=== PATIENT | female | born 1975 | race Caucasian/White ===

== ENCOUNTER 2016-08-25 01:53 | Emergency (ER) | payer SELFPAY ==
[~2016-08-25] VITALS: Ht 162.6 cm; Wt 72.6 kg
[~2016-08-25 01:53] MED LIST: ACET-704 PO; TOBR5DRO3 AS; TRAM1TAB4 PO
[2016-08-25 02:08] VITALS: BP 122/70
[2016-08-25] MEDS ORDERED: NEOM10DR32 EACH EAR (02:35)
--- NOTE | 2016-08-25 02:36 | PHYS DOC ---
Past Medical History Past Medical History: No Pertinent History Past Surgical History: Appendectomy, Tubal ligation, Other Additional Past Surgical Histo: D&C Alcohol Use: Occasionally Drug Use: None Adult General Chief Complaint Chief Complaint: EARACHE/EAR PAIN HPI HPI Patient is a 40 year old female who presents with right ear pain. The patient reports 2 day history of symptoms, clear/yellow drainage from the affected ear. Reports nasal congestion, rhinorrhea, sore throat, dry cough, intermittent vomiting, all over the past week. She is previously healthy. Review of Systems Review of Systems Constitutional: Denies fever or chills Eyes: Denies drainage HENT: Reports nasal congestion, ear pain, sore throat Respiratory: Reports cough, denies shortness of breath Cardiovascular: Denies chest pain GI: Reports nausea and vomiting. Denies abdominal pain Musculoskeletal: Denies back pain or joint pain Integument: Denies rash or skin lesions Neurologic: Denies headache Current Medications Current Medications Current Medications Medications (Trade) Dose Ordered Sig/Shon Start Time Stop Time Status Last Admin Dose Admin Ibuprofen (Motrin) 600 mg 1X ONCE 08/25/16 03:00 08/25/16 03:00 DC 08/25/16 02:41 600 MG Allergies Allergies Allergies Coded Allergies Type Severity Reaction Last Updated Verified Penicillins Allergy Severe hives 08/13/13 Yes Physical Exam Physical Exam Constitutional: Well developed, well nourished, no acute distress, non-toxic appearance. HENT: Normocephalic, atraumatic, bilateral external ears normal, right TM normal in appearance, EAC edematous, erythematous, friable tissue, yellow drainage, left TM & EAC are normal, oropharynx moist, no tonsillar enlargement or exudate, nose normal. Eyes: conjunctiva normal, no discharge. Cardiovascular: no edema. Lungs & Thorax: no respiratory distress. Abdomen: nondistended. Skin: Warm, dry, no erythema, no rash. Extremities: No deformity Neurologic: Alert and oriented X 3 Current Patient Data Vital Signs Vital Signs Date Time Temp Pulse Resp B/P Pulse Ox O2 Delivery O2 Flow Rate FiO2 08/25/16 02:08 97.8 111 20 96 Room Air 97.8 EKG EKG [] Radiology/Procedures Radiology/Procedures [] Course & Med Decision Making Course & Med Decision Making Pertinent Labs and Imaging studies reviewed. (See chart for details) The patient presents with ear pain, otitis externa on exam. Gave ibuprofen for pain. Prescription for neomycin/polymixin/hydrocortisone otic drops. Follow up as needed with Dr. Kiser in primary care clinic if not improving in 2-3 days. Come back for worsening condition. Discharged home in stable condition. [] Dragon Disclaimer Dragon Disclaimer This electronic medical record was generated, in whole or in part, using a voice recognition dictation system. Departure Departure Impression: Primary Impression: Otitis externa Disposition: HOME, SELF-CARE Condition: STABLE Referrals: NO PCP (PCP) CELIA KISER MD Patient Instructions: Otitis Externa, [id number] Additional Instructions: You were seen in the emergency department today for ear pain. You have outer ear infection. Use the prescribed drops. Take tylenol or ibuprofen for pain. Follow up wtih Dr. Kiser in primary care clinic for additional concerns. Scripts Neomycin/Polymyxin B Sulf/Hc (Kpgvbkct-Uneffjpgt-Fl Ear Susp)10 Ml Drops.susp4 Drop EACH EAR QID 7 Days Prov:CRISSY WALLACE MD 08/25/16 CRISSY WALLACE MD August 25, 2016 02:35
[2016-08-25] MEDS ORDERED: IBUPROFEN 600 MG TABLET. PO ONE (03:00)
== END 2016-08-25 02:42 | disposition home or self-care (01) ==
LOC: ER 01:53
DX: H60.91 Unspecified otitis externa, right ear (principal); J02.9 Acute pharyngitis, unspecified; Z90.49 Acquired absence of other specified parts of digestive tract; Z98.51 Tubal ligation status; Z88.0 Allergy status to penicillin
CPT/HCPCS: 99283

== ENCOUNTER 2017-04-22 03:32 | Emergency (ER) | payer SELFPAY ==
[2017-04-22] MEDS: KETOROLAC 30 MG/ML INJ. IM (04:15)
== END 2017-04-22 05:43 | disposition home or self-care (01) ==
LOC: ER 03:32
DX: S22.000A Wedge compression fracture of unspecified thoracic vertebra, initial encounter for closed fracture (principal); S06.0X0A Concussion without loss of consciousness, initial encounter; S16.1XXA Strain of muscle, fascia and tendon at neck level, initial encounter; S20.211A Contusion of right front wall of thorax, initial encounter; Z90.49 Acquired absence of other specified parts of digestive tract; Z98.51 Tubal ligation status; Z88.0 Allergy status to penicillin; W00.0XXA Fall on same level due to ice and snow, initial encounter; Y93.89 Activity, other specified; Y92.89 Other specified places as the place of occurrence of the external cause; Y99.8 Other external cause status
CPT/HCPCS: 70450; 72072; 96372; 99284-25; J1885

== ENCOUNTER 2017-06-27 05:46 | Emergency (ER) | payer SELFPAY ==
[2017-06-27] MEDS ORDERED: LIDOCAINE 1% PF 2 ML VIAL. ×2 (06:16→06:19)
[2017-06-27] MEDS: LIDOCAINE 1% PF 2 ML VIAL. ID (06:30)
[2017-06-27] MEDS: DIPHTH,PERTUSS(ACELL),TET TOX 0.5 ML DISP.SYRIN. VAX IM (06:44)
== END 2017-06-27 07:09 | disposition home or self-care (01) ==
LOC: ER 05:46
DX: L02.412 Cutaneous abscess of left axilla (principal); Z88.0 Allergy status to penicillin; Z98.51 Tubal ligation status
CPT/HCPCS: 10060; 90471; 90715; 99283-25

== ENCOUNTER 2018-07-30 00:30 | Emergency (ER) | payer SELFPAY ==
[~2018-07-30] VITALS: Ht 162.6 cm; Wt 72.1 kg
[~2018-07-30 00:30] MED LIST changes: +NEOM10DR32 EACH EAR; +SULF1TAB24 PO
--- NOTE | 2018-07-30 01:11 | PHYS DOC ---
Past Medical History Past Medical History: No Pertinent History Past Surgical History: Appendectomy, Tubal ligation Additional Past Surgical Histo: D&C Alcohol Use: Occasionally Drug Use: None Adult General Chief Complaint Chief Complaint: ABDOMINAL PAIN HPI HPI Patient is a 42 year old female who presents with abdominal pain for 2 days. Patient states the pain has been progressively getting worse over the past 2 days until the last 2 hours and become sharp in nature. It is located in her right lower quadrant with radiation into her groin. She attempted take Tylenol ibuprofen at home with no relief. Nothing seems to make her pain worse. She does report blood in her urine for the past couple days. Additionally the patient has not been able to have bowel movement for 2-3 days. She denies any nausea or vomiting. Denies . Hx of tubal ligation. Review of Systems Review of Systems Constitutional: Denies fever or chills [] Eyes: Denies redness, or eye pain [] HENT: Denies nasal congestion or sore throat [] Respiratory: Denies cough or shortness of breath [] Cardiovascular: Denies chest pain or patient's[] GI: Reports abdominal pain radiating to groin, denies nausea or vomiting[] : Reports hematuria, denies dysuria [] Musculoskeletal: Denies back pain or joint pain [] Integument: Denies rash or skin lesions [] Neurologic: Denies headache, focal weakness [] Complete systems were reviewed and found to be within normal limits, except as documented in this note. Current Medications Current Medications Current Medications Medications (Trade) Dose Ordered Sig/Shon Start Time Stop Time Status Last Admin Dose Admin Fentanyl Citrate (Fentanyl 2ml Vial) 50 mcg 1X ONCE 07/30/18 01:15 07/30/18 01:16 DC 07/30/18 01:23 50 MCG Ketorolac Tromethamine (Toradol 15mg Vial) 15 mg 1X ONCE 07/30/18 01:15 07/30/18 01:16 DC 07/30/18 01:22 15 MG Metoclopramide HCl (Reglan Vial) 10 mg 1X ONCE 07/30/18 01:15 07/30/18 01:16 DC 07/30/18 01:18 10 MG Sodium Chloride 500 ml @ 500 mls/hr 1X ONCE 07/30/18 02:45 07/30/18 02:45 DC Tamsulosin HCl (Flomax) 0.4 mg 1X ONCE 07/30/18 02:30 07/30/18 02:32 DC 07/30/18 02:30 0.4 MG Allergies Allergies Allergies Coded Allergies Type Severity Reaction Last Updated Verified Penicillins Allergy Severe hives 08/13/13 Yes Physical Exam Physical Exam Constitutional: Moderate distress, non-toxic appearance. [] HENT: Normocephalic, atraumatic, poor dentition. [] Eyes: EOMI, conjunctiva normal. [] Neck: Normal range of motion, supple. [] Cardiovascular: Heart rate regular rhythm, no murmur [] Lungs & Thorax: Bilateral breath sounds clear to auscultation, no rhonchi rales or wheezes. [] Abdomen: Soft, tenderness in right lower quadrant, no rebound rigidity or guarding. [] Skin: Warm, dry, no lacerations. [] Back: No tenderness, right CVA tenderness. [] Extremities: No tenderness, no cyanosis, no edema. [] Neurologic: Alert and oriented X 3, normal motor function, no focal deficits noted. [] Psychologic: Affect normal, mood normal. [] Current Patient Data Vital Signs Vital Signs Date Time Temp Pulse Resp B/P (MAP) Pulse Ox O2 Delivery O2 Flow Rate FiO2 07/30/18 03:41 96 110/64 (79) 97 Room Air 07/30/18 01:23 18 07/30/18 00:35 97.4 97.4 Lab Values Laboratory Tests Test 07/30/18 00:42 07/30/18 01:10 07/30/18 02:43 POC Urine HCG, Qualitative Hcg negative (Negative) White Blood Count 13.4 x10^3/uL (4.0-11.0) H Red Blood Count 4.93 x10^6/uL (3.50-5.40) Hemoglobin 14.2 g/dL (12.0-15.5) Hematocrit 42.6 % (36.0-47.0) Mean Corpuscular Volume 87 fL (79-100) Mean Corpuscular Hemoglobin 29 pg (25-35) Mean Corpuscular Hemoglobin Concent 33 g/dL (31-37) Red Cell Distribution Width 13.5 % (11.5-14.5) Platelet Count 255 x10^3/uL (140-400) Neutrophils (%) (Auto) 88 % (31-73) H Lymphocytes (%) (Auto) 8 % (24-48) L Monocytes (%) (Auto) 3 % (0-9) Eosinophils (%) (Auto) 0 % (0-3) Basophils (%) (Auto) 0 % (0-3) Neutrophils # (Auto) 11.7 x10^3uL (1.8-7.7) H Lymphocytes # (Auto) 1.1 x10^3/uL (1.0-4.8) Monocytes # (Auto) 0.5 x10^3/uL (0.0-1.1) Eosinophils # (Auto) 0.0 x10^3/uL (0.0-0.7) Basophils # (Auto) 0.0 x10^3/uL (0.0-0.2) Segmented Neutrophils % 88 % (35-66) H Lymphocytes % 9 % (24-48) L Monocytes % 3 % (0-10) Platelet Estimate Adequate (ADEQUATE) Sodium Level 140 mmol/L (136-145) Potassium Level 4.1 mmol/L (3.5-5.1) Chloride Level 103 mmol/L (98-107) Carbon Dioxide Level 25 mmol/L (21-32) Anion Gap 12 (6-14) Blood Urea Nitrogen 11 mg/dL (7-20) Creatinine 1.0 mg/dL (0.6-1.0) Estimated GFR (Cockcroft-Gault) 61.1 BUN/Creatinine Ratio 11 (6-20) Glucose Level 138 mg/dL (70-99) H Calcium Level 8.9 mg/dL (8.5-10.1) Total Bilirubin 0.3 mg/dL (0.2-1.0) Aspartate Amino Transferase (AST) 17 U/L (15-37) Alanine Aminotransferase (ALT) 17 U/L (14-59) Alkaline Phosphatase 110 U/L (46-116) Total Protein 7.5 g/dL (6.4-8.2) Albumin 3.8 g/dL (3.4-5.0) Albumin/Globulin Ratio 1.0 (1.0-1.7) Lipase 59 U/L (73-393) L Urine Collection Type U cath Urine Color Red Urine Clarity Cloudy Urine pH 7.5 Urine Specific [place] >=1.030 Urine Protein 100 mg/dL (NEG-TRACE) Urine Glucose (UA) Negative mg/dL (NEG) Urine Ketones (Stick) 15 mg/dL (NEG) Urine Blood Large (NEG) Urine Nitrite Negative (NEG) Urine Bilirubin Small (NEG) Urine Urobilinogen Dipstick 1.0 mg/dL (0.2 mg/dL) Urine Leukocyte Esterase Small (NEG) Urine RBC Tntc /HPF (0-2) Urine WBC Occ /HPF (0-4) Urine Squamous Epithelial Cells Few /LPF Urine Bacteria 0 /HPF (0-FEW) Urine Mucus Marked /LPF Laboratory Tests 07/30/18 01:10 Laboratory Tests 07/30/18 01:10 Microbiology 07/30/18 Urine Culture - Final, Complete 07/30/18 Urine Culture Result 1 (MINE) - Final, Complete EKG EKG [] Radiology/Procedures Radiology/Procedures PROCEDURE: CT ABDOMEN PELVIS WO CONTRAST Abdominal and Pelvis CT, Without Contrast: History: Right flank pain. Comparison: None. Procedure: Axial images are obtained of the abdomen and pelvis, without IV or oral contrast. CT Abdomen without Contrast: Findings: Evaluation of solid organs is limited without contrast. Evaluation of stomach and bowel is limited without oral contrast. Liver: Normal. Spleen: Normal. Pancreas: Normal. Adrenal Glands: Normal. Kidneys: There is moderate right hydronephrosis and hydroureter.. There is no free air or free fluid. There is no lymphadenopathy. Impression: Please see CT Pelvis without Contrast. End Impression. CT Pelvis without Contrast: Findings: The urinary bladder is collapsed. There is no free fluid. There is no lymphadenopathy. There is no pericolonic inflammation identified. There is a 6 mm stone in the distal right ureter just above the UVJ. Impression: 6 mm stone distal right ureter with moderate hydronephrosis and hydroureter. End impression PQRS Compliance Statement: One or more of the following individualized dose reduction techniques were utilized for this examination: 1. Automated exposure control 2. Adjustment of the mA and/or kV according to patient size 3. Use of iterative reconstruction technique Electronically signed by: Jeovanny Castro III, MD (07/30/2018 2:03 AM) [facility] DICTATED and SIGNED BY: JEOVANNY CASTRO III, MD[] Course & Med Decision Making Course & Med Decision Making 42-year-old female with previous appendectomy presented to emergency department for RLQ abdominal pain and right flank pain. Patient reported hematuria. She is unable to rest comfortably in the room. Pertinent Labs and Imaging studies reviewed. CT demonstrated 6 mm stone in the right UVJ. Urine was negative for infection. Symptomatic treatment provided with interval improvement. Flomax initiated. Patient stable for discharge with outpatient follow-up with PCP/ urologist. Urology referral provided. Discussed findings and plan with patient and family, who acknowledge understanding and agreement. [] Dragon Disclaimer Dragon Disclaimer This electronic medical record was generated, in whole or in part, using a voice recognition dictation system. Departure Departure Impression: Primary Impression: Hydronephrosis with urinary obstruction due to ureteral calculus Disposition: HOME, SELF-CARE Condition: STABLE Referrals: NO PCP (PCP) SALENA MALONE MD Patient Instructions: Diet for Kidney Stones, Kidney Stones, [id number] Scripts Ondansetron (ONDANSETRON ODT) 4 Mg Tab.rapdis 1 TAB PO PRN Q6-8HRS PRN for NAUSEA, #16 TAB Prov: AMANDA CALLAHAN DO 07/30/18 Hydrocodone/Apap 5-325 (NORCO 5-325 TABLET) 1 Each Tablet 1 TAB PO PRN Q6HRS PRN for PAIN, #14 TAB 0 Refills Prov: AMANDA CALLAHAN DO 07/30/18 Tamsulosin Hcl (FLOMAX) 0.4 Mg Cap.er.24h 1 CAP PO DAILY for 7 Days, #7 CAP Prov: AMANDA CALLAHAN DO 07/30/18 AMANDA CALLAHAN DO Jul 30, 2018 01:11
[2018-07-30] MEDS ORDERED: KETOROLAC 15 MG/ML VIAL. IV ONE (01:15)
[2018-07-30] MEDS ORDERED: METOCLOPRAMIDE HCL 10 MG/2 ML VIAL. IV ONE (01:15)
[2018-07-30] MEDS ORDERED: IV NORMAL SALINE 1000ML BAG 1,000 ML IV ONE (01:15)
[2018-07-30] MEDS ORDERED: fentaNYL PF VIAL 100 MCG/2 ML VIAL IV ONE (01:15)
[2018-07-30 01:21] LABS: BASO % 0 % (0-3); EOS % 0 % (0-3); HEMATOCRIT 42.6 % (36.0-47.0); HEMOGLOBIN 14.2 g/dL (12.0-15.5); LYMPH # 1.1 x10^3/uL (1.0-4.8); LYMPH % 8 % (24-48); MEAN CORPUSCULAR HEMOGLOBIN 29 pg (25-35); MEAN CORPUSCULAR HGB CONC 33 g/dL (31-37); MEAN CORPUSCULAR VOLUME 87 fL (79-100); MONO # 0.5 x10^3/uL (0.0-1.1); MONO % 3 % (0-9); NEUT # 11.7 x10^3uL (1.8-7.7); NEUT % 88 % (31-73); PLATELET COUNT 255 x10^3/uL (140-400); RED BLOOD COUNT 4.93 x10^6/uL (3.50-5.40); RED CELL DISTRIBUTION WIDTH 13.5 % (11.5-14.5); WHITE BLOOD COUNT 13.4 x10^3/uL (4.0-11.0)
[2018-07-30 01:36] LABS: ALBUMIN 3.8 g/dL (3.4-5.0); CALCIUM 8.9 mg/dL (8.5-10.1); GFR 61.1; POTASSIUM 4.1 mmol/L (3.5-5.1); TOTAL BILIRUBIN 0.3 mg/dL (0.2-1.0); TOTAL PROTEIN 7.5 g/dL (6.4-8.2)
--- NOTE | 2018-07-30 02:06 | RAD ---
Abdominal and Pelvis CT, Without Contrast: History: Right flank pain. Comparison: None. Procedure: Axial images are obtained of the abdomen and pelvis, without IV or oral contrast. CT Abdomen without Contrast: Findings: Evaluation of solid organs is limited without contrast. Evaluation of stomach and bowel is limited without oral contrast. Liver: Normal. Spleen: Normal. Pancreas: Normal. Adrenal Glands: Normal. Kidneys: There is moderate right hydronephrosis and hydroureter.. There is no free air or free fluid. There is no lymphadenopathy. Impression: Please see CT Pelvis without Contrast. End Impression. CT Pelvis without Contrast: Findings: The urinary bladder is collapsed. There is no free fluid. There is no lymphadenopathy. There is no pericolonic inflammation identified. There is a 6 mm stone in the distal right ureter just above the UVJ. Impression: 6 mm stone distal right ureter with moderate hydronephrosis and hydroureter. End impression PQRS Compliance Statement: One or more of the following individualized dose reduction techniques were utilized for this examination: 1. Automated exposure control 2. Adjustment of the mA and/or kV according to patient size 3. Use of iterative reconstruction technique Electronically signed by: Compa Castro III, MD (07/30/2018 2:03 AM) [facility]
[2018-07-30] MEDS ORDERED: ONDA4TAB12 PO (02:27)
[2018-07-30] MEDS ORDERED: HYDR-3164 PO (02:27)
[2018-07-30] MEDS ORDERED: TAMS0.4C97 PO (02:27)
[2018-07-30] MEDS ORDERED: TAMSULOSIN 0.4 MG CAP.ER.24H. PO ONE (02:30)
[2018-07-30] MEDS ORDERED: IV NORMAL SALINE 500ML BAG 500 ML IV ONE (02:45)
[2018-07-30 02:56] LABS: BILIRUBIN,URINE SMALL (NEG); CLARITY,URINE CLOUDY; COLOR,URINE RED; NITRITE,URINE NEGATIVE (NEG); PH,URINE 7.5; PROTEIN,URINE 100 mg/dL (NEG-TRACE)
[2018-07-30 03:08] LABS: BACTERIA,URINE 0 /HPF (0-FEW); RBC,URINE TNTC /HPF (0-2); SQUAMOUS EPITHELIAL CELL,UR FEW /LPF; WBC,URINE OCC /HPF (0-4)
[2018-07-30 03:41] VITALS: BP 110/64
[2018-07-30 05:35] LABS: % LYMPHS 9 % (24-48); % MONOS 3 % (0-10); % SEGS 88 % (35-66); PLT ESTIMATE ADEQUATE (ADEQUATE)
== END 2018-07-30 03:40 | disposition home or self-care (01) ==
LOC: ER 00:30
DX: N13.2 Hydronephrosis with renal and ureteral calculous obstruction (principal); Z90.89 Acquired absence of other organs; Z98.51 Tubal ligation status; Z88.0 Allergy status to penicillin
CPT/HCPCS: 36415; 74176; 80053; 81001; 81025; 83690; 85007; 85025; 87086; 96374; 96375; 99284; J1885; J2765; J3010; J7030

== ENCOUNTER 2018-08-03 10:49 | Emergency (ER) | payer SELFPAY ==
[~2018-08-03] VITALS: Ht 162.6 cm; Wt 68.0 kg
[~2018-08-03 10:49] MED LIST changes: +HYDR-3164 PO; +ONDA4TAB12 PO; +TAMS0.4C97 PO
[2018-08-03 11:03] VITALS: BP 141/78
[2018-08-03] MEDS ORDERED: IV NORMAL SALINE 1000ML BAG 1,000 ML IV SCH ×2 (11:04→11:35)
[2018-08-03] MEDS ORDERED: ONDANSETRON PF 4 MG/2 ML VIAL. IV ONE (11:15)
[2018-08-03 11:18] LABS: BASO # 0.1 x10^3/uL (0.0-0.2); BASO % 1 % (0-3); EOS # 0.2 x10^3/uL (0.0-0.7); EOS % 1 % (0-3); HEMATOCRIT 40.4 % (36.0-47.0); HEMOGLOBIN 13.5 g/dL (12.0-15.5); LYMPH # 1.2 x10^3/uL (1.0-4.8); LYMPH % 8 % (24-48); MEAN CORPUSCULAR HEMOGLOBIN 29 pg (25-35); MEAN CORPUSCULAR HGB CONC 34 g/dL (31-37); MEAN CORPUSCULAR VOLUME 87 fL (79-100); MONO # 0.8 x10^3/uL (0.0-1.1); MONO % 6 % (0-9); NEUT # 11.9 x10^3uL (1.8-7.7); NEUT % 85 % (31-73); PLATELET COUNT 262 x10^3/uL (140-400); RED BLOOD COUNT 4.66 x10^6/uL (3.50-5.40); RED CELL DISTRIBUTION WIDTH 13.6 % (11.5-14.5); WHITE BLOOD COUNT 14.1 x10^3/uL (4.0-11.0)
[2018-08-03] MEDS ORDERED: fentaNYL PF VIAL 100 MCG/2 ML VIAL ONE (11:21)
[2018-08-03 11:30] LABS: CALCIUM 9.1 mg/dL (8.5-10.1); GFR 61.1
[2018-08-03] MEDS ORDERED: fentaNYL PF VIAL 100 MCG/2 ML VIAL IV ONE (11:30)
--- NOTE | 2018-08-03 11:35 | PHYS DOC ---
Past Medical History Past Medical History: No Pertinent History Past Surgical History: Appendectomy, Tubal ligation Additional Past Surgical Histo: D&C Alcohol Use: Occasionally Drug Use: None Adult General Chief Complaint Chief Complaint: FLANK PAIN HPI HPI Patient is a 42 year old female who presents in by EMS because of right flank pain. Patient states she was seen on July 30 in this emergency room because of right flank pain and diagnosed with kidney stone and discharged home with hydrocodone improvement of her pain. Is complaining of severe right flank pain since this morning with radiation to right lower quadrant and associated with 2 episodes of vomiting and hematuria. Patient rated her pain 10 over 10 and looks very uncomfortable. Review of Systems Review of Systems Constitutional: Denies fever or chills [] Eyes: Denies change in visual acuity, redness, or eye pain [] HENT: Denies nasal congestion or sore throat [] Respiratory: Denies cough or shortness of breath [] Cardiovascular: No additional information not addressed in HPI [] GI: Denies abdominal pain, nausea, vomiting, bloody stools or diarrhea [] : Denies dysuria or hematuria [] Musculoskeletal: Denies back pain or joint pain [] Integument: Denies rash or skin lesions [] Neurologic: Denies headache, focal weakness or sensory changes [] Endocrine: Denies polyuria or polydipsia [] All other systems were reviewed and found to be within normal limits, except as documented in this note. Current Medications Current Medications Current Medications Medications (Trade) Dose Ordered Sig/Shon Start Time Stop Time Status Last Admin Dose Admin Sodium Chloride 1,000 ml @ 1,000 mls/hr Q1H 08/03/18 11:04 08/03/18 12:03 DC 08/03/18 11:25 1,000 MLS/HR Allergies Allergies Allergies Coded Allergies Type Severity Reaction Last Updated Verified Penicillins Allergy Severe hives 08/13/13 Yes Physical Exam Physical Exam Constitutional: Well developed, well nourished, no acute distress, non-toxic appearance. [] HENT: Normocephalic, atraumatic, bilateral external ears normal, oropharynx moist, no oral exudates, nose normal. [] Eyes: PERRLA, EOMI, conjunctiva normal, no discharge. [] Neck: Normal range of motion, no tenderness, supple, no stridor. [] Cardiovascular:Heart rate regular rhythm, no murmur [] Lungs & Thorax: Bilateral breath sounds clear to auscultation [] Abdomen: Bowel sounds normal, soft, no tenderness, no masses, no pulsatile masses. [] Skin: Warm, dry, no erythema, no rash. [] Back: No tenderness, no CVA tenderness. [] Extremities: No tenderness, no cyanosis, no clubbing, ROM intact, no edema. [] Neurologic: Alert and oriented X 3, normal motor function, normal sensory function, no focal deficits noted. [] Psychologic: Affect normal, judgement normal, mood normal. [] Current Patient Data Vital Signs Vital Signs Date Time Temp Pulse Resp B/P (MAP) Pulse Ox O2 Delivery O2 Flow Rate FiO2 08/03/18 11:03 97.6 95 26 141/78 (99) 99 Room Air 97.6 Lab Values Laboratory Tests Test 08/03/18 11:00 White Blood Count 14.1 x10^3/uL (4.0-11.0) H Red Blood Count 4.66 x10^6/uL (3.50-5.40) Hemoglobin 13.5 g/dL (12.0-15.5) Hematocrit 40.4 % (36.0-47.0) Mean Corpuscular Volume 87 fL (79-100) Mean Corpuscular Hemoglobin 29 pg (25-35) Mean Corpuscular Hemoglobin Concent 34 g/dL (31-37) Red Cell Distribution Width 13.6 % (11.5-14.5) Platelet Count 262 x10^3/uL (140-400) Neutrophils (%) (Auto) 85 % (31-73) H Lymphocytes (%) (Auto) 8 % (24-48) L Monocytes (%) (Auto) 6 % (0-9) Eosinophils (%) (Auto) 1 % (0-3) Basophils (%) (Auto) 1 % (0-3) Neutrophils # (Auto) 11.9 x10^3uL (1.8-7.7) H Lymphocytes # (Auto) 1.2 x10^3/uL (1.0-4.8) Monocytes # (Auto) 0.8 x10^3/uL (0.0-1.1) Eosinophils # (Auto) 0.2 x10^3/uL (0.0-0.7) Basophils # (Auto) 0.1 x10^3/uL (0.0-0.2) Sodium Level 139 mmol/L (136-145) Potassium Level 4.0 mmol/L (3.5-5.1) Chloride Level 102 mmol/L (98-107) Carbon Dioxide Level 25 mmol/L (21-32) Anion Gap 12 (6-14) Blood Urea Nitrogen 9 mg/dL (7-20) Creatinine 1.0 mg/dL (0.6-1.0) Estimated GFR (Cockcroft-Gault) 61.1 BUN/Creatinine Ratio 9 (6-20) Glucose Level 110 mg/dL (70-99) H Lactic Acid Level 0.6 mmol/L (0.4-2.0) Calcium Level 9.1 mg/dL (8.5-10.1) Total Bilirubin 0.4 mg/dL (0.2-1.0) Aspartate Amino Transferase (AST) 20 U/L (15-37) Alanine Aminotransferase (ALT) 35 U/L (14-59) Alkaline Phosphatase 129 U/L (46-116) H Total Protein 7.5 g/dL (6.4-8.2) Albumin 3.5 g/dL (3.4-5.0) Albumin/Globulin Ratio 0.9 (1.0-1.7) L Laboratory Tests 08/03/18 11:00 Laboratory Tests 08/03/18 11:00 EKG EKG [] Radiology/Procedures Radiology/Procedures [] Course & Med Decision Making Course & Med Decision Making Pertinent Labs and Imaging studies reviewed. (See chart for details) Evaluation of patient in ER showed 42-year-old female patient with history of the distal right ureter seen in CT 5 days ago and was in by EMS because of severe flank pain. Patient treated with IV fluid and Zofran and fentanyl. Dr. Alicea see list. Patient was consulted at 111,[facility] nurse practitioner was informed at 1111 and evaluated the patient in ER. Patient requiring admission for further evaluation and treatment. Discussed with Dr. Pereira who is in agreement with admission. Discussed findings and plan with patient and family, who acknowledge understanding and agreement. Dragon Disclaimer Dragon Disclaimer This electronic medical record was generated, in whole or in part, using a voice recognition dictation system. Departure Departure Impression: Primary Impression: Renal colic on right side Additional Impressions: Ureterolithiasis Nausea and vomiting Hematuria Disposition: 09 ADMITTED INPATIENT (@1116) Admitting Physician: Josiah Pereira (accepted admission at 1116) Condition: IMPROVED Referrals: NO PCP (PCP) Problem Qualifiers Additional Impressions: Nausea and vomiting Vomiting type: unspecified Vomiting Intractability: unspecified Qualified Codes: R11.2 - Nausea with vomiting, unspecified Hematuria Hematuria type: unspecified type Qualified Codes: R31.9 - Hematuria, unspecified FARHEEN UMAÑA MD Aug 03, 2018 11:35
[2018-08-03 11:36] LABS: ALBUMIN 3.5 g/dL (3.4-5.0); ALBUMIN/GLOBULIN RATIO 0.9 (1.0-1.7); TOTAL BILIRUBIN 0.4 mg/dL (0.2-1.0); TOTAL PROTEIN 7.5 g/dL (6.4-8.2)
--- NOTE | 2018-08-03 11:46 | PDOC1 ---
History and Physical Date of Admission Date of Admission DATE: 08/03/18 TIME: 11:45 Identification/Chief Complaint Chief Complaint Patient is a 42 year old FEMALE ] who presents with SEVERE, INTRACTABLE PAIN Past Medical History Past Medical History Past Medical History Past Medical History: No Pertinent History Past Surgical History: Appendectomy, Tubal ligation Additional Past Surgical Histo: D&C Alcohol Use: Occasionally Drug Use: None smoker family hx COPD Cardiovascular: Hyperlipidemia Endocrine: No pertinent hx Current Problem List Problem List Problems Medical Problems: (1) Hematuria Status: Acute (2) Nausea and vomiting Status: Acute (3) Renal colic on right side Status: Acute (4) Ureterolithiasis Status: Acute Current Medications Current Medications Current Medications Sodium Chloride 1,000 ml @ 1,000 mls/hr Q1H IV Last administered on 08/03/18at 11:25; Start 08/03/18 at 11:04; Stop 08/03/18 at 12:03 Ondansetron HCl (Zofran) 4 mg 1X ONCE IV Last administered on 08/03/18at 11:25; Start 08/03/18 at 11:15; Stop 08/03/18 at 11:16; Status DC Fentanyl Citrate (Fentanyl 2ml Vial) 50 mcg 1X ONCE IV Last administered on 08/03/18at 11:25; Start 08/03/18 at 11:30; Stop 08/03/18 at 11:31; Status DC Fentanyl Citrate (Fentanyl 2ml Vial) 100 mcg STK-MED ONCE .ROUTE ; Start at 11:21; Stop 08/03/18 at 11:22; Status DC Sodium Chloride 1,000 ml @ 150 mls/hr Q6H40M IV ; Start 08/03/18 at 11:35; Stop 08/04/18 at 11:34 Active Scripts Active Ondansetron Odt (Ondansetron) 4 Mg Tab.rapdis 1 Tab PO PRN Q6-8HRS PRN [place] 5-325 Tablet (Acetaminophen/Hydrocodone Bitart) 1 Each Tablet 1 Tab PO PRN Q6HRS PRN Flomax (Tamsulosin Hcl) 0.4 Mg Cap.er.24h 1 Cap PO DAILY 7 Days Bactrim Ds Tablet (Sulfamethoxazole/Trimethoprim) 1 Each Tablet 1 Tab PO BID Yogwixnq-Ezkvngoxe-Ik Ear Susp (Neomycin/Polymyxin B Sulf/Hc) 10 Ml Drops.susp 4 Drop EACH EAR QID [address] Eye Drops (Tobramycin/Dexamethasone) 5 Ml Drops.susp 1 Drop QID left eye Tylenol With Codeine #3 Tablet (Acetaminophen/Codeine Phosphate) 1 Each Tablet 1 Tab PO PRN Q6HRS PRN Tramadol-Acetaminophn 37.5-325 (Tramadol Hcl/Acetaminophen) 1 Each Tablet 1 Tab PO Q4-6HRS Allergies Allergies: Coded Allergies: Penicillins (Verified Allergy, Severe, hives, 08/13/13) ROS Review of System Review of Systems Review of Systems Constitutional: Denies fever or chills [] Eyes: Denies change in visual acuity, redness, or eye pain [] HENT: Denies nasal congestion or sore throat [] Respiratory: Denies cough or shortness of breath [] Cardiovascular: No additional information not addressed in HPI [] GI: POS FLANK PAIN, SEVERE NO nausea, vomiting, bloody stools or diarrhea [] : Denies dysuria or hematuria [] Musculoskeletal: SOME back pain or joint pain [] Integument: Denies rash or skin lesions [] Neurologic: Denies headache, focal weakness or sensory changes [] Endocrine: Denies polyuria or polydipsia [] 14 PT systems were reviewed and found to be within normal limits, except as documented PSYCHOLOGICAL ROS: No: Anxiety, Behavioral Disorder, Concentration difficultie , Decreased libido, Depression, Disorientation, Hallucinations, Hostility, Irritablity, Memory difficulties, Mood Swings, Obsessive thoughts, Physical abuse, Sexual abuse, Sleep disturbances, Suicidal ideation, Other ALLERGY AND IMMUNOLOGY: No: Hives, Insect Bite Sensitivity, Itchy/Watery Eyes, Nasal Congestion, Post Nasal Drip, Seasonal Allergies, Other Hematological and Lymphatic: No: Bleeding Problems, Blood Clots, Blood Transfusions, Brusing, Night Sweats, Pallor, Swollen Lymph Nodes, Other Cardiovascular: No Chest Pain, No Palpitations, No Orthopnea, No Paroxysmal Noc. Dyspnea, No Edema, No Lt Headedness, No Other Gastrointestinal: Yes Nausea, Yes Vomiting Genitourinary: YES Flank Pain Musculoskeletal: No Gait Disturbance, No Joint Pain, No Joint Stiffness, No Joint Swelling, No Muscle Pain, No Muscular Weakness, No Pain In:, No Swelling In:, No Other Neurological: No Behavorial Changes, No Bowel/Bladder ControlChng, No Confusion , No Dizziness, No Gait Disturbance, No Headaches, No Impaired Coord/balance, No Memory Loss, No Numbness/Tingling, No Seizures, No Speech Problems, No Tremors, No Visual Changes, No Weakness, No Other Physical Exam Physical Exam Physical Exam Physical Exam Constitutional: Well developed, well nourished, SEVERE acute distress, non- toxic appearance. [] HENT: Normocephalic, atraumatic, bilateral external ears normal, oropharynx moist, no oral exudates, nose normal. POOR DENTITION[] Eyes: PERRLA, EOMI, conjunctiva normal, no discharge. [] Neck: Normal range of motion, no tenderness, supple, no stridor. [] Cardiovascular:Heart rate regular rhythm, no murmur [] Lungs & Thorax: Bilateral breath sounds clear to auscultation [] Abdomen: Bowel sounds normal, soft, no tenderness, no masses, no pulsatile masses. [] Skin: Warm, dry, no erythema, no rash. [] Back: No tenderness, no CVA tenderness. [] Extremities: No tenderness, no cyanosis, no clubbing, ROM intact, no edema. [] Neurologic: Alert and oriented X 3, normal motor function, normal sensory function, no focal deficits noted. [] Psychologic: Affect normal, judgement normal, mood normal. [] General: Oriented X3, Cooperative, severe distress HEENT: Atraumatic Lungs: Clear to auscultation Heart: S1S2, RRR, no thrills, no rubs, no jug vein distention Breasts: Not examined Rectal Exam: not examined PELVIC: Examination not indicated Extremities: No cyanosis, No edema Skin: No significant lesion Neuro: Normal speech, Cranial nerves 3-12 NL Psych/Mental Status: Mental status NL, Mood NL Vitals Vitals Vital Signs Date Time Temp Pulse Resp B/P (MAP) Pulse Ox O2 Delivery O2 Flow Rate FiO2 08/03/18 11:25 24 08/03/18 11:03 97.6 95 141/78 (99) 99 Room Air 97.6 Labs Labs Laboratory Tests Test 08/03/18 11:00 White Blood Count 14.1 x10^3/uL (4.0-11.0) Red Blood Count 4.66 x10^6/uL (3.50-5.40) Hemoglobin 13.5 g/dL (12.0-15.5) Hematocrit 40.4 % (36.0-47.0) Mean Corpuscular Volume 87 fL (79-100) Mean Corpuscular Hemoglobin 29 pg (25-35) Mean Corpuscular Hemoglobin Concent 34 g/dL (31-37) Red Cell Distribution Width 13.6 % (11.5-14.5) Platelet Count 262 x10^3/uL (140-400) Neutrophils (%) (Auto) 85 % (31-73) Lymphocytes (%) (Auto) 8 % (24-48) Monocytes (%) (Auto) 6 % (0-9) Eosinophils (%) (Auto) 1 % (0-3) Basophils (%) (Auto) 1 % (0-3) Neutrophils # (Auto) 11.9 x10^3uL (1.8-7.7) Lymphocytes # (Auto) 1.2 x10^3/uL (1.0-4.8) Monocytes # (Auto) 0.8 x10^3/uL (0.0-1.1) Eosinophils # (Auto) 0.2 x10^3/uL (0.0-0.7) Basophils # (Auto) 0.1 x10^3/uL (0.0-0.2) Sodium Level 139 mmol/L (136-145) Potassium Level 4.0 mmol/L (3.5-5.1) Chloride Level 102 mmol/L (98-107) Carbon Dioxide Level 25 mmol/L (21-32) Anion Gap 12 (6-14) Blood Urea Nitrogen 9 mg/dL (7-20) Creatinine 1.0 mg/dL (0.6-1.0) Estimated GFR (Cockcroft-Gault) 61.1 BUN/Creatinine Ratio 9 (6-20) Glucose Level 110 mg/dL (70-99) Lactic Acid Level 0.6 mmol/L (0.4-2.0) Calcium Level 9.1 mg/dL (8.5-10.1) Total Bilirubin 0.4 mg/dL (0.2-1.0) Aspartate Amino Transf (AST/SGOT) 20 U/L (15-37) Alanine Aminotransferase (ALT/SGPT) 35 U/L (14-59) Alkaline Phosphatase 129 U/L (46-116) Total Protein 7.5 g/dL (6.4-8.2) Albumin 3.5 g/dL (3.4-5.0) Albumin/Globulin Ratio 0.9 (1.0-1.7) Laboratory Tests Test 08/03/18 11:00 White Blood Count 14.1 x10^3/uL (4.0-11.0) Red Blood Count 4.66 x10^6/uL (3.50-5.40) Hemoglobin 13.5 g/dL (12.0-15.5) Hematocrit 40.4 % (36.0-47.0) Mean Corpuscular Volume 87 fL (79-100) Mean Corpuscular Hemoglobin 29 pg (25-35) Mean Corpuscular Hemoglobin Concent 34 g/dL (31-37) Red Cell Distribution Width 13.6 % (11.5-14.5) Platelet Count 262 x10^3/uL (140-400) Neutrophils (%) (Auto) 85 % (31-73) Lymphocytes (%) (Auto) 8 % (24-48) Monocytes (%) (Auto) 6 % (0-9) Eosinophils (%) (Auto) 1 % (0-3) Basophils (%) (Auto) 1 % (0-3) Neutrophils # (Auto) 11.9 x10^3uL (1.8-7.7) Lymphocytes # (Auto) 1.2 x10^3/uL (1.0-4.8) Monocytes # (Auto) 0.8 x10^3/uL (0.0-1.1) Eosinophils # (Auto) 0.2 x10^3/uL (0.0-0.7) Basophils # (Auto) 0.1 x10^3/uL (0.0-0.2) Sodium Level 139 mmol/L (136-145) Potassium Level 4.0 mmol/L (3.5-5.1) Chloride Level 102 mmol/L (98-107) Carbon Dioxide Level 25 mmol/L (21-32) Anion Gap 12 (6-14) Blood Urea Nitrogen 9 mg/dL (7-20) Creatinine 1.0 mg/dL (0.6-1.0) Estimated GFR (Cockcroft-Gault) 61.1 BUN/Creatinine Ratio 9 (6-20) Glucose Level 110 mg/dL (70-99) Lactic Acid Level 0.6 mmol/L (0.4-2.0) Calcium Level 9.1 mg/dL (8.5-10.1) Total Bilirubin 0.4 mg/dL (0.2-1.0) Aspartate Amino Transf (AST/SGOT) 20 U/L (15-37) Alanine Aminotransferase (ALT/SGPT) 35 U/L (14-59) Alkaline Phosphatase 129 U/L (46-116) Total Protein 7.5 g/dL (6.4-8.2) Albumin 3.5 g/dL (3.4-5.0) Albumin/Globulin Ratio 0.9 (1.0-1.7) Images Images Impression: Please see CT Pelvis without Contrast. End Impression. CT Pelvis without Contrast: Findings: The urinary bladder is collapsed. There is no free fluid. There is no lymphadenopathy. There is no pericolonic inflammation identified. There is a 6 mm stone in the distal right ureter just above the UVJ. Impression: 6 mm stone distal right ureter with moderate hydronephrosis and hydroureter. End impression PQRS Compliance Statement: One or more of the following individualized dose reduction techniques were utilized for this examination: 1. Automated exposure control 2. Adjustment of the mA and/or kV according to patient size 3. Use of iterative reconstruction technique Electronically signed by: Compa Castro III, MD (07/30/2018 2:03 AM) [facility] VTE Prophylaxis Ordered VTE Prophylaxis Devices: Yes VTE Pharmacological Prophylaxi: Yes Assessment/Plan Assessment/Plan Impression: Renal colic right URETERAL STONE, INTRACTABLE SEVERE PAIN Ureterolithiasis 6 mm stone distal right ureter with moderate hydronephrosis and hydroureter. Nausea and vomiting intractable Hematuria Tobacco abuse leukocytosis SIRS POSSIBLE UTI plan admit urology consult iv fluid support dvt prophylaxis iv pain control, dilaudid 1.5 mg iv q 3 hrs prn URINE CULT IV CIPRO 400MG BID IV ZOFRAN 4 MG Q 4 HRS PRN YARI HARDING MD Aug 03, 2018 11:46
[2018-08-03] MEDS ORDERED: KETOROLAC 30 MG/ML VIAL. IM ONE (12:15)
--- NOTE | 2018-08-03 12:38 | PDOC2 ---
UROLOGY CONSULT Date of Consult Date of Consult DATE: 08/03/18 TIME: 12:27 Identification/Chief Complaint Chief Complaint Kidney stone right side Source Source: Chart review, Patient History of Present Illness Reason for Visit: Patient emelina 42 year old female who came in foru days ago for flank pain on the right. She was sent home with pain medication and encouraged to try and pass it on her own. She convalesced at home for a while and then presented again today with the same pain on the right. [facility] describes the pain as 10/10 and very sharp. She denies dysuria or hematuria and this is the first stone she has had. With the exception of this problem, she is otherwise very healthy. She tried to eat early this morning but threw everything up and has not been able to eat anything else. Past Medical History Renal/: Other (Kidney stone ) Current Problem List Problems: (1) Renal colic on right side Current Medications Current Medications Current Medications Fentanyl Citrate (Fentanyl 2ml Vial) 50 mcg 1X ONCE IV Last administered on 08/03/18at 11:25; Start 08/03/18 at 11:30; Stop 08/03/18 at 11:31; Status DC Fentanyl Citrate (Fentanyl 2ml Vial) 100 mcg STK-MED ONCE .ROUTE ; Start at 11:21; Stop 08/03/18 at 11:22; Status DC Ketorolac Tromethamine (Toradol 30mg Vial) 30 mg 1X ONCE IM ; Start 08/03/18 at 12:15; Stop 08/03/18 at 12:16; Status DC Ondansetron HCl (Zofran) 4 mg 1X ONCE IV Last administered on 08/03/18at 11:25; Start 08/03/18 at 11:15; Stop 08/03/18 at 11:16; Status DC Sodium Chloride 1,000 ml @ 150 mls/hr Q6H40M IV ; Start 08/03/18 at 11:35; Stop 08/04/18 at 11:34 Sodium Chloride 1,000 ml @ 1,000 mls/hr Q1H IV Last administered on 08/03/18at 11:25; Start 08/03/18 at 11:04; Stop 08/03/18 at 12:03; Status DC Allergies Allergies: Coded Allergies: Penicillins (Verified Allergy, Severe, hives, 08/13/13) ROS Review Of Systems: CONSTITUTIONAL: No fever or chills EYES: No recent changes SKIN: No rash or itching CARDIOVASCULAR: No chest pain, syncope, palpitations, or edema RESPIRATORY: No SOB or cough GASTROINTESTINAL: + abdominal pain on the right side, + N/Vomiting early this am NEUROLOGICAL: No headaches or weakness ENDOCRINE: No cold or heat intolerance GENITOURINARY: No urgency or frequency of urination MUSCULOSKELETAL: + flank pain on the right side, non tender on the left. LYMPHATICS: No enlarged lymph nodes PSYCHIATRIC: No anxiety or depression Physical Exam Physical Exam: General: Pleasant, no acute distress, well groomed Eyes: conjunctiva anicteric, eyes full range of motion ENT: moist oral mucosa, normal dentition Neck: Trachea midline, no masses Respiratory: unlabored breathing, not using accessory muscles, Back: + CVA pain on the right, none on the left. Abdomen: + tender on the right side, non tender on the left. Skin: no rashes or skin lesions on visualized skin Psych: normal mood, affect. Alert and oriented x 3. Vitals VITALS Vital Signs Date Time Temp Pulse Resp B/P (MAP) Pulse Ox O2 Delivery O2 Flow Rate FiO2 08/03/18 11:25 24 08/03/18 11:03 97.6 95 141/78 (99) 99 Room Air 97.6 Labs Labs Laboratory Tests Test 08/03/18 11:00 White Blood Count 14.1 x10^3/uL (4.0-11.0) Red Blood Count 4.66 x10^6/uL (3.50-5.40) Hemoglobin 13.5 g/dL (12.0-15.5) Hematocrit 40.4 % (36.0-47.0) Mean Corpuscular Volume 87 fL (79-100) Mean Corpuscular Hemoglobin 29 pg (25-35) Mean Corpuscular Hemoglobin Concent 34 g/dL (31-37) Red Cell Distribution Width 13.6 % (11.5-14.5) Platelet Count 262 x10^3/uL (140-400) Neutrophils (%) (Auto) 85 % (31-73) Lymphocytes (%) (Auto) 8 % (24-48) Monocytes (%) (Auto) 6 % (0-9) Eosinophils (%) (Auto) 1 % (0-3) Basophils (%) (Auto) 1 % (0-3) Neutrophils # (Auto) 11.9 x10^3uL (1.8-7.7) Lymphocytes # (Auto) 1.2 x10^3/uL (1.0-4.8) Monocytes # (Auto) 0.8 x10^3/uL (0.0-1.1) Eosinophils # (Auto) 0.2 x10^3/uL (0.0-0.7) Basophils # (Auto) 0.1 x10^3/uL (0.0-0.2) Sodium Level 139 mmol/L (136-145) Potassium Level 4.0 mmol/L (3.5-5.1) Chloride Level 102 mmol/L (98-107) Carbon Dioxide Level 25 mmol/L (21-32) Anion Gap 12 (6-14) Blood Urea Nitrogen 9 mg/dL (7-20) Creatinine 1.0 mg/dL (0.6-1.0) Estimated GFR (Cockcroft-Gault) 61.1 BUN/Creatinine Ratio 9 (6-20) Glucose Level 110 mg/dL (70-99) Lactic Acid Level 0.6 mmol/L (0.4-2.0) Calcium Level 9.1 mg/dL (8.5-10.1) Total Bilirubin 0.4 mg/dL (0.2-1.0) Aspartate Amino Transf (AST/SGOT) 20 U/L (15-37) Alanine Aminotransferase (ALT/SGPT) 35 U/L (14-59) Alkaline Phosphatase 129 U/L (46-116) Total Protein 7.5 g/dL (6.4-8.2) Albumin 3.5 g/dL (3.4-5.0) Albumin/Globulin Ratio 0.9 (1.0-1.7) Laboratory Tests Test 08/03/18 11:00 White Blood Count 14.1 x10^3/uL (4.0-11.0) Red Blood Count 4.66 x10^6/uL (3.50-5.40) Hemoglobin 13.5 g/dL (12.0-15.5) Hematocrit 40.4 % (36.0-47.0) Mean Corpuscular Volume 87 fL (79-100) Mean Corpuscular Hemoglobin 29 pg (25-35) Mean Corpuscular Hemoglobin Concent 34 g/dL (31-37) Red Cell Distribution Width 13.6 % (11.5-14.5) Platelet Count 262 x10^3/uL (140-400) Neutrophils (%) (Auto) 85 % (31-73) Lymphocytes (%) (Auto) 8 % (24-48) Monocytes (%) (Auto) 6 % (0-9) Eosinophils (%) (Auto) 1 % (0-3) Basophils (%) (Auto) 1 % (0-3) Neutrophils # (Auto) 11.9 x10^3uL (1.8-7.7) Lymphocytes # (Auto) 1.2 x10^3/uL (1.0-4.8) Monocytes # (Auto) 0.8 x10^3/uL (0.0-1.1) Eosinophils # (Auto) 0.2 x10^3/uL (0.0-0.7) Basophils # (Auto) 0.1 x10^3/uL (0.0-0.2) Sodium Level 139 mmol/L (136-145) Potassium Level 4.0 mmol/L (3.5-5.1) Chloride Level 102 mmol/L (98-107) Carbon Dioxide Level 25 mmol/L (21-32) Anion Gap 12 (6-14) Blood Urea Nitrogen 9 mg/dL (7-20) Creatinine 1.0 mg/dL (0.6-1.0) Estimated GFR (Cockcroft-Gault) 61.1 BUN/Creatinine Ratio 9 (6-20) Glucose Level 110 mg/dL (70-99) Lactic Acid Level 0.6 mmol/L (0.4-2.0) Calcium Level 9.1 mg/dL (8.5-10.1) Total Bilirubin 0.4 mg/dL (0.2-1.0) Aspartate Amino Transf (AST/SGOT) 20 U/L (15-37) Alanine Aminotransferase (ALT/SGPT) 35 U/L (14-59) Alkaline Phosphatase 129 U/L (46-116) Total Protein 7.5 g/dL (6.4-8.2) Albumin 3.5 g/dL (3.4-5.0) Albumin/Globulin Ratio 0.9 (1.0-1.7) Images Images CT Pelvis without Contrast: CT ABD/PELVIS on 07/30/18 Findings: The urinary bladder is collapsed. There is no free fluid. There is no lymphadenopathy. There is no pericolonic inflammation identified. There is a 6 mm stone in the distal right ureter just above the UVJ. Impression: 6 mm stone distal right ureter with moderate hydronephrosis and hydroureter. End impression Assessment/Plan Assessment/Plan Continue IVF for expulsion therapy. Strain urine Pain and nausea control. Flomax. [employer]ES REPRESENTATIVE 1.0, BUN 9, WBC 14.1 Pt may eat today if able to tolerate; NPO at midnight. Will re-assess in the am. GIACOMO STEIN APRN Aug 03, 2018 12:38
[2018-08-03] MEDS ORDERED: KETOROLAC 30 MG/ML VIAL. IV ONE (12:45)
[2018-08-03] MEDS ORDERED: HYDROmorphone 2 MG/ML VIAL IVP PRN (12:45)
[2018-08-03] MEDS ORDERED: ONDANSETRON PF 4 MG/2 ML VIAL. IV PRN (12:45)
[2018-08-03] MEDS ORDERED: ONDANSETRON ODT 4 MG TAB.RAPDIS. PO PRN (12:45)
[2018-08-03] MEDS ORDERED: HYDROcodone/APAP 5/325MG 1 TAB TABLET PO PRN (12:45)
[2018-08-03] MEDS ORDERED: CIPROFLOXACIN 400MG PREMIX 200 ML IV SCH (13:30)
[2018-08-03] MEDS ORDERED: TAMSULOSIN 0.4 MG CAP.ER.24H. PO SCH (13:30)
[2018-08-03] MEDS ORDERED: ENOXAPARIN 40 MG/0.4 ML SYRINGE. SQ SCH (14:00)
[2018-08-04] MEDS ORDERED: TAMSULOSIN 0.4 MG CAP.ER.24H. PO SCH (09:00)
== END 2018-08-03 12:53 | disposition left against medical advice (07) ==
LOC: ER 10:49 → UNDOADMIN 11:11 → 5 NORTH 11:11 → ER 12:53
DX: N20.1 Calculus of ureter (principal); R11.2 Nausea with vomiting, unspecified; Z90.89 Acquired absence of other organs; Z98.51 Tubal ligation status; Z88.0 Allergy status to penicillin
CPT/HCPCS: 36415; 80053; 83605; 85025; 96361; 96374; 96375; 99283; J1885; J2405; J3010; J7030

== ENCOUNTER 2018-08-03 21:47 | Emergency (ER) | payer SELFPAY ==
[~2018-08-03] VITALS: Ht 162.6 cm; Wt 68.0 kg
[2018-08-03] MEDS ORDERED: fentaNYL PF VIAL 100 MCG/2 ML VIAL IV ONE (22:15)
[2018-08-03] MEDS ORDERED: IV NORMAL SALINE 1000ML BAG 1,000 ML IV ONE (22:15)
[2018-08-03] MEDS ORDERED: ONDANSETRON PF 4 MG/2 ML VIAL. IV ONE (22:15)
[2018-08-03] MEDS ORDERED: KETOROLAC 30 MG/ML VIAL. IV ONE (22:15)
--- NOTE | 2018-08-03 22:24 | PHYS DOC ---
Past Medical History Past Medical History: Kidney Stone Past Surgical History: Appendectomy, Tubal ligation Additional Past Surgical Histo: D&C Alcohol Use: Occasionally Drug Use: None Adult General Chief Complaint Chief Complaint: FLANK PAIN HPI HPI 42-year-old female well known to our emergency Department presents with intractable right flank pain. She states the pain starts in her right flank and radiates to her groin. She states she was seen earlier this month and diagnosed with kidney stone. She states that the physician wanted to admit her to the hospital but she refused because she had to take care of a sick family member. She was given hydrocodone and Zofran to take at home which has helped a little bit but the pain became intolerable tonight. She thinks the size of her kidney stone was around 6 mm and they told her that it was close to passing when she was here on 30 July. Denies any fever chills or sweats. She has had some nausea and vomiting secondary to the pain. She denies any gross hematuria.[] Review of Systems Review of Systems Constitutional: Denies fever or chills [] Eyes: Denies change in visual acuity, redness, or eye pain [] HENT: Denies nasal congestion or sore throat [] Respiratory: Denies cough or shortness of breath [] Cardiovascular: No additional information not addressed in HPI [] GI: Denies abdominal pain, nausea, vomiting, bloody stools or diarrhea [] : Per history of present illness[] Musculoskeletal: Denies back pain or joint pain [] Integument: Denies rash or skin lesions [] Neurologic: Denies headache, focal weakness or sensory changes [] Endocrine: Denies polyuria or polydipsia [] All other systems were reviewed and found to be within normal limits, except as documented in this note. Current Medications Current Medications Current Medications Medications (Trade) Dose Ordered Sig/Shon Start Time Stop Time Status Last Admin Dose Admin Fentanyl Citrate (Fentanyl 2ml Vial) 50 mcg 1X ONCE 08/03/18 22:15 08/03/18 22:19 DC 08/03/18 22:15 50 MCG Ketorolac Tromethamine (Toradol 30mg Vial) 30 mg 1X ONCE 08/03/18 22:15 08/03/18 22:19 DC 08/03/18 22:15 30 MG Ondansetron HCl (Zofran) 4 mg 1X ONCE 08/03/18 22:15 08/03/18 22:19 DC 08/03/18 22:15 4 MG Sodium Chloride 1,000 ml @ 1,000 mls/hr 1X ONCE 08/03/18 22:15 08/03/18 23:14 DC 08/03/18 22:15 1,000 MLS/HR Allergies Allergies Allergies Coded Allergies Type Severity Reaction Last Updated Verified Penicillins Allergy Severe hives 08/13/13 Yes Physical Exam Physical Exam Constitutional: Well developed, well nourished, moderate distress, non-toxic appearance. [] HENT: Normocephalic, atraumatic, bilateral external ears normal, oropharynx moist, no oral exudates, nose normal. [] Eyes: PERRLA, EOMI, conjunctiva normal, no discharge. [] Neck: Normal range of motion, no tenderness, supple, no stridor. [] Cardiovascular:Heart rate regular rhythm, no murmur [] Lungs & Thorax: Bilateral breath sounds clear to auscultation [] Abdomen: Bowel sounds normal, soft, no tenderness, no masses, no pulsatile masses. [] Skin: Warm, dry, no erythema, no rash. [] Back: No tenderness, no CVA tenderness. [] Extremities: No tenderness, no cyanosis, no clubbing, ROM intact, no edema. [] Neurologic: Alert and oriented X 3, normal motor function, normal sensory function, no focal deficits noted. [] Psychologic: Extremely anxious. [] Current Patient Data Vital Signs Vital Signs Date Time Temp Pulse Resp B/P (MAP) Pulse Ox O2 Delivery O2 Flow Rate FiO2 08/03/18 22:15 18 99 Room Air 08/03/18 21:47 97.8 97 151/79 (103) 97.8 Lab Values Laboratory Tests Test 08/03/18 21:50 08/03/18 22:37 Urine Collection Type Unknown Urine Color Yellow Urine Clarity Cloudy Urine pH 6.0 Urine Specific [place] 1.015 Urine Protein Negative mg/dL (NEG-TRACE) Urine Glucose (UA) Negative mg/dL (NEG) Urine Ketones (Stick) Negative mg/dL (NEG) Urine Blood Large (NEG) Urine Nitrite Negative (NEG) Urine Bilirubin Negative (NEG) Urine Urobilinogen Dipstick 0.2 mg/dL (0.2 mg/dL) Urine Leukocyte Esterase Trace (NEG) Urine RBC 6-10 /HPF (0-2) Urine WBC 11-20 /HPF (0-4) Urine Squamous Epithelial Cells Few /LPF Urine Bacteria Few /HPF (0-FEW) Urine Hyaline Casts Few /HPF Urine Mucus Marked /LPF White Blood Count 7.7 x10^3/uL (4.0-11.0) Red Blood Count 4.13 x10^6/uL (3.50-5.40) Hemoglobin 12.1 g/dL (12.0-15.5) Hematocrit 35.5 % (36.0-47.0) L Mean Corpuscular Volume 86 fL (79-100) Mean Corpuscular Hemoglobin 29 pg (25-35) Mean Corpuscular Hemoglobin Concent 34 g/dL (31-37) Red Cell Distribution Width 13.4 % (11.5-14.5) Platelet Count 233 x10^3/uL (140-400) Neutrophils (%) (Auto) 64 % (31-73) Lymphocytes (%) (Auto) 26 % (24-48) Monocytes (%) (Auto) 7 % (0-9) Eosinophils (%) (Auto) 3 % (0-3) Basophils (%) (Auto) 1 % (0-3) Neutrophils # (Auto) 5.0 x10^3uL (1.8-7.7) Lymphocytes # (Auto) 2.0 x10^3/uL (1.0-4.8) Monocytes # (Auto) 0.5 x10^3/uL (0.0-1.1) Eosinophils # (Auto) 0.3 x10^3/uL (0.0-0.7) Basophils # (Auto) 0.0 x10^3/uL (0.0-0.2) Sodium Level 139 mmol/L (136-145) Potassium Level 3.5 mmol/L (3.5-5.1) Chloride Level 103 mmol/L (98-107) Carbon Dioxide Level 25 mmol/L (21-32) Anion Gap 11 (6-14) Blood Urea Nitrogen 11 mg/dL (7-20) Creatinine 1.0 mg/dL (0.6-1.0) Estimated GFR (Cockcroft-Gault) 61.1 Glucose Level 98 mg/dL (70-99) Calcium Level 8.5 mg/dL (8.5-10.1) Laboratory Tests 08/03/18 22:37 Laboratory Tests 08/03/18 22:37 EKG EKG [] Radiology/Procedures Radiology/Procedures [] Impressions: REASON: right flank pain PROCEDURE: CT ABDOMEN PELVIS WO CONTRAST EXAM: CT Abdomen and Pelvis without IV contrast CLINICAL HISTORY: right flank pain; pt had CT exam on 07/30 for exact same symptoms;report uploaded. COMPARISON: CT 07/30/2018 TECHNIQUE: Helical CT of the abdomen and pelvis without intravenous contrast. Axial, coronal and sagittal reformatted images were generated. PQRS compliance statement - One or more of the following individualized dose reduction techniques were utilized for this study: 1. Automated exposure control 2. Adjustment of the mA and/or kV according to patient size 3. Use of iterative reconstruction technique FINDINGS: Lack of intravenous contrast limits evaluation of solid organs, vasculature, and lymph nodes. Lower chest: Linear opacities in the left lower lobe likely scarring/atelectasis. Abdomen and Pelvis: The focal liver lesion. Gallstone seen within the gallbladder. Spleen is unremarkable. Adrenal glands are normal. Pancreas is unremarkable. The calculus seen at the right ureterovesicular junction is no longer seen. However there is mild to moderate right hydronephrosis and hydroureter with associated inflammatory changes about the right ureter and right kidney. Superimposed right pyelonephritis is suspected. No left renal tract calculus. Partially distended bladder is otherwise unremarkable. Moderate colonic stool content is seen. Appendix is not convincingly seen. No small or large bowel dilatation. No abdominal or pelvic ascites. No abdominal or pelvic lymphadenopathy. Bones: Osseous structures are grossly stable. IMPRESSION: 1. Previously seen calculus of the right ureterovesicular junction is no longer seen. 2. There is infiltration about the right kidney and right ureter with mild to moderate right hydronephrosis and hydroureter, suspect associated pyelonephritis Course & Med Decision Making Course & Med Decision Making Pertinent Labs and Imaging studies reviewed. (See chart for details) [ED course: Evaluation reveals a 42-year-old female with intractable right flank pain. Another CT scan was performed today which shows she is past the stone. Initially she was having quite a bit of pain but this seemed to have resolved. Looking at the urine does not appear infected. Her physical exam at 2348 was benign. I offered the patient admission to the hospital but she refused. Stating she'll come back should her symptoms worsen or should she develop any high fever.] Dragon Disclaimer Dragon Disclaimer This electronic medical record was generated, in whole or in part, using a voice recognition dictation system. Departure Departure Impression: Primary Impression: Ureteral calculus, right Disposition: HOME, SELF-CARE Admitting Physician: Kathi Heaton Condition: IMPROVED Referrals: NO PCP (PCP) SALENA MALONE MD Call Dr. Malone tomorrow to schedule a follow-up appointment. Patient Instructions: Diet for Kidney Stones, Kidney Stones Additional Instructions: Return to the emergency department with any new or concerning symptoms SUPRIYA CARLSON DO Aug 03, 2018 22:24
[2018-08-03 22:43] LABS: BASO % 1 % (0-3); EOS # 0.3 x10^3/uL (0.0-0.7); EOS % 3 % (0-3); HEMATOCRIT 35.5 % (36.0-47.0); HEMOGLOBIN 12.1 g/dL (12.0-15.5); LYMPH % 26 % (24-48); MEAN CORPUSCULAR HEMOGLOBIN 29 pg (25-35); MEAN CORPUSCULAR HGB CONC 34 g/dL (31-37); MEAN CORPUSCULAR VOLUME 86 fL (79-100); MONO # 0.5 x10^3/uL (0.0-1.1); MONO % 7 % (0-9); NEUT % 64 % (31-73); PLATELET COUNT 233 x10^3/uL (140-400); RED BLOOD COUNT 4.13 x10^6/uL (3.50-5.40); RED CELL DISTRIBUTION WIDTH 13.4 % (11.5-14.5); WHITE BLOOD COUNT 7.7 x10^3/uL (4.0-11.0)
[2018-08-03 22:52] LABS: CALCIUM 8.5 mg/dL (8.5-10.1); GFR 61.1; POTASSIUM 3.5 mmol/L (3.5-5.1)
[2018-08-03] MEDS ORDERED: IV NORMAL SALINE 1000ML BAG 1,000 ML IV SCH (23:15)
[2018-08-03] MEDS ORDERED: TAMSULOSIN 0.4 MG CAP.ER.24H. PO ONE (23:15)
[2018-08-03] MEDS ORDERED: fentaNYL PF VIAL 100 MCG/2 ML VIAL IV PRN (23:15)
[2018-08-03] MEDS ORDERED: ONDANSETRON PF 4 MG/2 ML VIAL. IV PRN (23:15)
[2018-08-03 23:23] LABS: BILIRUBIN,URINE NEGATIVE (NEG); CLARITY,URINE CLOUDY; COLOR,URINE YELLOW; NITRITE,URINE NEGATIVE (NEG); PROTEIN,URINE NEGATIVE (NEG-TRACE); UROBILINOGEN,URINE 0.2 mg/dL (0.2 mg/dL)
[2018-08-03 23:27] LABS: BACTERIA,URINE FEW /HPF (0-FEW)
[2018-08-03 23:28] LABS: HYALINE CASTS, URINE FEW /HPF; SQUAMOUS EPITHELIAL CELL,UR FEW /LPF
--- NOTE | 2018-08-03 23:38 | RAD ---
EXAM: CT Abdomen and Pelvis without IV contrast CLINICAL HISTORY: right flank pain; pt had CT exam on 07/30 for exact same symptoms;report uploaded. COMPARISON: CT 07/30/2018 TECHNIQUE: Helical CT of the abdomen and pelvis without intravenous contrast. Axial, coronal and sagittal reformatted images were generated. PQRS compliance statement - One or more of the following individualized dose reduction techniques were utilized for this study: 1. Automated exposure control 2. Adjustment of the mA and/or kV according to patient size 3. Use of iterative reconstruction technique FINDINGS: Lack of intravenous contrast limits evaluation of solid organs, vasculature, and lymph nodes. Lower chest: Linear opacities in the left lower lobe likely scarring/atelectasis. Abdomen and Pelvis: The focal liver lesion. Gallstone seen within the gallbladder. Spleen is unremarkable. Adrenal glands are normal. Pancreas is unremarkable. The calculus seen at the right ureterovesicular junction is no longer seen. However there is mild to moderate right hydronephrosis and hydroureter with associated inflammatory changes about the right ureter and right kidney. Superimposed right pyelonephritis is suspected. No left renal tract calculus. Partially distended bladder is otherwise unremarkable. Moderate colonic stool content is seen. Appendix is not convincingly seen. No small or large bowel dilatation. No abdominal or pelvic ascites. No abdominal or pelvic lymphadenopathy. Bones: Osseous structures are grossly stable. IMPRESSION: 1. Previously seen calculus of the right ureterovesicular junction is no longer seen. 2. There is infiltration about the right kidney and right ureter with mild to moderate right hydronephrosis and hydroureter, suspect associated pyelonephritis Electronically signed by: Tim Prado MD (08/03/2018 11:35 PM) [facility]
[2018-08-04 00:03] VITALS: BP 111/76
[2018-08-04] MEDS ORDERED: ACETAMINOPHEN 500 MG TABLET PO PRN (08:45)
[2018-08-04] MEDS ORDERED: fentaNYL PF VIAL 100 MCG/2 ML VIAL IV PRN (08:45)
[2018-08-04] MEDS ORDERED: ZOLPIDEM 5 MG TABLET. PO PRN (08:45)
[2018-08-04] MEDS ORDERED: ACETAMINOPHEN/CODEINE 300/30MG TABLET. PO PRN (08:45)
[2018-08-04] MEDS ORDERED: oxyCODONE/APAP 5/325 1 TAB TABLET PO PRN (08:45)
[2018-08-04] MEDS ORDERED: NON FORMULARY ITEM (Tramadol Hcl/Acetaminophen (Tramadol-Acetaminophn 37.5-325) 1 TAB) PO SCH (08:45)
[2018-08-04] MEDS ORDERED: ONDANSETRON PF 4 MG/2 ML VIAL. IV PRN (08:45)
[2018-08-04] MEDS ORDERED: HYDROcodone/APAP 5/325MG 1 TAB TABLET PO PRN (08:45)
[2018-08-04] MEDS ORDERED: DEXAMETHASONE AS SCH (09:00)
[2018-08-04] MEDS ORDERED: TOBRAMYCIN AS SCH (09:00)
[2018-08-04] MEDS ORDERED: NEOMYCIN EACH EAR SCH (09:00)
[2018-08-04] MEDS ORDERED: POLYMYXIN B SULF EACH EAR SCH (09:00)
[2018-08-04] MEDS ORDERED: [UNRECOGNIZED DRUG - OTHER] EACH EAR SCH (09:00)
[2018-08-04] MEDS ORDERED: TAMSULOSIN 0.4 MG CAP.ER.24H. PO SCH (09:30)
== END 2018-08-04 00:17 | disposition home or self-care (01) ==
LOC: ER 21:47 → 5 NORTH 23:00 → UNDOADMIN 23:00
DX: N13.2 Hydronephrosis with renal and ureteral calculous obstruction (principal); R11.2 Nausea with vomiting, unspecified; Z90.89 Acquired absence of other organs; Z98.51 Tubal ligation status; Z88.0 Allergy status to penicillin
CPT/HCPCS: 36415; 74176; 80048; 81001; 85025; 87086; 96361; 96374; 96375; 99284; J1885; J2405; J3010; J7030; 99285-25

== ENCOUNTER 2018-08-22 17:28 | Emergency (ER) | payer SELFPAY ==
[~2018-08-22] VITALS: Ht 162.6 cm; Wt 68.0 kg
[2018-08-22 18:13] LABS: BILIRUBIN,URINE SMALL (NEG); CLARITY,URINE CLEAR; COLOR,URINE AMBER; NITRITE,URINE NEGATIVE (NEG); PROTEIN,URINE NEGATIVE (NEG-TRACE)
[2018-08-22 18:21] LABS: BACTERIA,URINE FEW /HPF (0-FEW); SQUAMOUS EPITHELIAL CELL,UR MANY /LPF
[2018-08-22 18:25] LABS: BASO # 0.1 x10^3/uL (0.0-0.2); BASO % 1 % (0-3); EOS # 0.2 x10^3/uL (0.0-0.7); EOS % 1 % (0-3); HEMATOCRIT 37.8 % (36.0-47.0); HEMOGLOBIN 12.8 g/dL (12.0-15.5); LYMPH # 1.9 x10^3/uL (1.0-4.8); LYMPH % 15 % (24-48); MEAN CORPUSCULAR HEMOGLOBIN 29 pg (25-35); MEAN CORPUSCULAR HGB CONC 34 g/dL (31-37); MEAN CORPUSCULAR VOLUME 85 fL (79-100); MONO # 0.7 x10^3/uL (0.0-1.1); MONO % 6 % (0-9); NEUT # 9.9 x10^3uL (1.8-7.7); NEUT % 78 % (31-73); PLATELET COUNT 301 x10^3/uL (140-400); RED BLOOD COUNT 4.47 x10^6/uL (3.50-5.40); WHITE BLOOD COUNT 12.7 x10^3/uL (4.0-11.0)
[2018-08-22] MEDS ORDERED: KETOROLAC 15 MG/ML VIAL. IV ONE (18:30)
[2018-08-22] MEDS ORDERED: NEOMY/BACITR/POLYMYXIN OINT PACKET. TP ONE (18:30)
[2018-08-22] MEDS ORDERED: METOCLOPRAMIDE HCL 10 MG/2 ML VIAL. IV ONE (18:30)
[2018-08-22] MEDS ORDERED: IV NORMAL SALINE 1000ML BAG 1,000 ML IV ONE (18:30)
[2018-08-22 18:32] LABS: GFR 61.1; POTASSIUM 3.7 mmol/L (3.5-5.1)
[2018-08-22 18:38] LABS: ALBUMIN/GLOBULIN RATIO 0.7 (1.0-1.7); MAGNESIUM 2.1 mg/dL (1.8-2.4); TOTAL BILIRUBIN 0.5 mg/dL (0.2-1.0); TOTAL PROTEIN 7.3 g/dL (6.4-8.2)
[2018-08-22] MEDS ORDERED: DEXAMETHASONE SOD PHOS 4 MG/ML VIAL IV ONE (19:45)
[2018-08-22] MEDS ORDERED: fentaNYL PF VIAL 100 MCG/2 ML VIAL IV ONE (19:45)
[2018-08-22] MEDS ORDERED: IPRATRPIUM/ALBUTEROL 0.5/2.5MG 3 ML NEBU. NEB ONE (19:45)
[2018-08-22] MEDS ORDERED: ONDA4TAB12 PO (20:51)
[2018-08-22] MEDS ORDERED: SILV20CR14 TP (20:51)
[2018-08-22] MEDS ORDERED: HYDR-3164 PO (20:51)
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
[2018-08-22 20:53] VITALS: BP 95/53
[2018-08-22] MEDS ORDERED: PRED20TA PO (20:54)
[2018-08-22] MEDS ORDERED: ALBU2.5V8 INH (20:54)
--- NOTE | 2018-08-23 04:06 | RAD ---
CHEST PA LATERAL CLINICAL INDICATION: COUGH AND SOA COMPARISON: None FINDINGS: Heart is normal in size. Central bilateral peribronchial wall thickening. No focal consolidation. No pneumothorax or effusion. Visualized bony thorax within normal limits. IMPRESSION: Bronchitis. Electronically signed by: Danilo Jaime DO (08/23/2018 4:03 AM) [facility]
[2018-08-23] MEDS ORDERED: DOXY100C2 PO (16:52)
== END 2018-08-22 21:03 | disposition home or self-care (01) ==
LOC: ER 17:28
DX: J40 Bronchitis, not specified as acute or chronic (principal); R10.30 Lower abdominal pain, unspecified; R11.2 Nausea with vomiting, unspecified; M54.5 Low back pain; T24.031D Burn of unspecified degree of right lower leg, subsequent encounter; R30.0 Dysuria; Z98.51 Tubal ligation status; Z90.89 Acquired absence of other organs; Z87.442 Personal history of urinary calculi; Z88.0 Allergy status to penicillin
CPT/HCPCS: 36415; 71046; 80053; 81001; 81025; 83690; 83735; 85025; 94640; 96361; 96374; 96375; 99285; J1100; J1885; J2765; J3010; J7030; J7620

== ENCOUNTER 2018-08-23 15:49 | Emergency (ER) | payer SELFPAY ==
[~2018-08-23] VITALS: Ht 162.6 cm; Wt 68.0 kg
[~2018-08-23 15:49] MED LIST changes: +ALBU2.5V8 INH; +PRED20TA PO; +SILV20CR14 TP
[2018-08-23 16:03] VITALS: BP 140/90
--- NOTE | 2018-08-23 16:13 | PHYS DOC ---
Past Medical History Past Medical History: Kidney Stone (DUDLEY SERVIN APRN) Past Surgical History: Appendectomy, Tubal ligation Additional Past Surgical Histo: D&C (DUDLEY SERVIN APRN) Alcohol Use: Occasionally Drug Use: None (DUDLEY SERVIN APRN) Adult General Chief Complaint Chief Complaint: RIB PAIN HPI HPI 42-year-old female presents to ER for complaints of ongoing symptoms which she was evaluated in the ER for last night. Patient had labs and chest x-ray obtained and was diagnosed with bronchitis. Patient was sent home was several prescriptions for an inhaler, prednisone, and pain medication. Patient states she did not get prescriptions filled due to financial reasons and symptoms have continued. She is afebrile at 98.3. She has c/o nonprod. cough and discomfort similar to last night in abd/ribs. She reports she took Ibuprofen approx. 3 hrs ago. She states her sister is going to try and get her Rxs. She came in for tx again as she continues to have cough and feels SOA. She is a daily smoker. (DUDLEY SERVIN APRN) Review of Systems Review of Systems Constitutional: Denies fever or chills [] Eyes: Denies change in visual acuity, redness, or eye pain [] HENT: Denies nasal congestion or sore throat [] Respiratory: Reports cough/SOA Cardiovascular: Denies CP/palpitations GI: Denies nausea, vomiting, bloody stools or diarrhea. Reports abd pain w/ coughing episodes into side ribs : Denies dysuria or hematuria [] Musculoskeletal: Denies joint pain [] Integument: Denies rash, swelling or skin lesions [] Neurologic: Denies headache, focal weakness or sensory changes [] Endocrine: Denies polyuria or polydipsia [] All other systems were reviewed and found to be within normal limits, except as documented in this note. (DUDLEY SERVIN APRN) Current Medications Current Medications Current Medications Medications (Trade) Dose Ordered Sig/Shon Start Time Stop Time Status Last Admin Dose Admin Acetaminophen/ Hydrocodone Bitart (Lortab 5/325) 1 tab 1X ONCE 08/23/18 17:00 08/23/18 17:01 DC 08/23/18 17:16 1 TAB Albuterol/ Ipratropium (Duoneb) 3 ml 1X ONCE 08/23/18 16:15 08/23/18 16:16 DC 08/23/18 16:27 3 ML Doxycycline Hyclate (Vibra-Tab) 100 mg 1X ONCE 08/23/18 17:00 08/23/18 17:01 DC 08/23/18 17:16 100 MG Prednisone (Prednisone) 40 mg 1X ONCE 08/23/18 16:15 08/23/18 16:16 DC 08/23/18 16:31 40 MG (MASTER LUBIN MD) Allergies Allergies Allergies Coded Allergies Type Severity Reaction Last Updated Verified Penicillins Allergy Severe hives 08/13/13 Yes (MASTER LUBIN MD) Physical Exam Physical Exam Constitutional: Well developed, well nourished, no acute distress, non-toxic appearance. [] HENT: Normocephalic, atraumatic, oropharynx moist, no oral exudates, nose normal. [] Eyes: Pupils equal, conjunctiva normal, no discharge. [] Neck: Normal range of motion, no tenderness, supple, no stridor. [] Cardiovascular: Heart rate regular rhythm, no murmur [] Lungs & Thorax: Rhonchi in bilat. upper lobes- diminished air movement throughout with less air movement in bases. Resp. equal- labored however pt is hyperventilating and anxious. With redirection on breathing and anxiety her resp. were less labored. O2 sat on RA was 97% with occas. nonprod. cough during exam Abdomen: Bowel sounds normal, soft- no distention or rigidity, diffuse tenderness in all abd without focal area- reports no change from when seen last night Skin: Warm, dry, no erythema, no rash. [] Back: No tenderness, no CVA tenderness. [] Extremities: No tenderness, no cyanosis, no clubbing, ROM intact, no edema. [] Neurologic: Alert and oriented X 3, normal motor function, normal sensory function, no focal deficits noted. [] Psychologic: Affect normal, judgement normal, mood normal. [] (DONNAT,DUDLEY Jackson APRN) Current Patient Data Vital Signs Vital Signs Date Time Temp Pulse Resp B/P (MAP) Pulse Ox O2 Delivery O2 Flow Rate FiO2 08/23/18 16:28 Room Air 08/23/18 16:03 98.3 102 18 140/90 (107) 97 98.3 (MASTER LUBIN MD) EKG EKG [] (DUDLEY SERVIN APRN) Radiology/Procedures Radiology/Procedures [] (DUDLEY SERVIN APRN) Course & Med Decision Making Course & Med Decision Making Pt returned to ER for similar resp. issues which she was evaluated in the ER for yest. She reported she didn't get her Rxs but her sister is currently out getting them for her. Pt was provided with Duoneb tx. She was given dose of prednisone and [place]- and started on PO Doxycycline for bronchitis. Smoking cessation was discussed. Education provided on need to obtain Rxs- will also provide with Rx for doxycycline with d/c paperwork today. Pt encouraged to increase fld intake. Pt had improved sxs following txs received with increased air movement throughout all lung irwin and less rhonchi. Pt was nontoxic in appearance and in no visible distress. No imaging/tests done during this ER visit as pt had those during yesterday's ER visit with reports sxs similar with chest xray yest. showing bronchitis. Education provided on s&s to return to ER for and d/c instructions were discussed. (DUDLEY SERVIN APRN) Course & Med Decision Making Staff Physician Addendum: I was working in the ER during the course of this patient's visit. I was available for consultation as needed, but I was not directly involved in the care of this patient. (MASTER LUBIN MD) Dragon Disclaimer Dragon Disclaimer This electronic medical record was generated, in whole or in part, using a voice recognition dictation system. (DUDLEY SERVIN APRN) Departure Departure Impression: Primary Impression: Bronchitis Disposition: HOME, SELF-CARE Condition: STABLE Referrals: NO PCP (PCP) Patient Instructions: Bronchitis, Smoking Cessation Additional Instructions: Drink plenty of fluids and avoid smoking. Try and get all prescriptions filled and take as directed. If symptoms persist follow-up with your primary care physician for reevaluation and further care. Scripts Doxycycline Hyclate (DOXYCYCLINE HYCLATE) 100 Mg Capsule 1 CAP PO BID, #14 CAP 0 Refills Prov: DUDLEY SERVIN APRN 08/23/18 DUDLEY SERVIN APRN Aug 23, 2018 16:13 MASTER LUBIN MD September 14, 2018 22:06
[2018-08-23] MEDS ORDERED: predniSONE 20 MG TABLET PO ONE (16:15)
[2018-08-23] MEDS ORDERED: IPRATRPIUM/ALBUTEROL 0.5/2.5MG 3 ML NEBU. NEB ONE (16:15)
[2018-08-23] MEDS ORDERED: DOXY100C2 PO (16:52)
[2018-08-23] MEDS ORDERED: HYDROcodone/APAP 5/325MG 1 TAB TABLET PO ONE (17:00)
[2018-08-23] MEDS ORDERED: DOXYCYCLINE HYCLATE 100 MG TABLET PO ONE (17:00)
== END 2018-08-23 17:19 | disposition home or self-care (01) ==
LOC: ER 15:49
DX: J40 Bronchitis, not specified as acute or chronic (principal); R10.84 Generalized abdominal pain; R06.4 Hyperventilation; F17.200 Nicotine dependence, unspecified, uncomplicated; Z90.89 Acquired absence of other organs; Z98.51 Tubal ligation status; Z88.0 Allergy status to penicillin
CPT/HCPCS: 94640; 99284; J7512; J7620

== ENCOUNTER 2018-09-01 14:38 | Emergency (ER) | payer SELFPAY ==
[~2018-09-01] VITALS: Ht 162.6 cm; Wt 70.3 kg
[~2018-09-01 14:38] MED LIST changes: +DOXY100C2 PO
[2018-09-01] MEDS ORDERED: CYCLOBENZAPRINE 10 MG TABLET. PO ONE (15:00)
[2018-09-01] MEDS ORDERED: MORPHINE SULFATE 10 MG/ML VIAL. IM ONE (15:00)
[2018-09-01 15:26] LABS: BILIRUBIN,URINE NEGATIVE (NEG); CLARITY,URINE CLEAR; COLOR,URINE YELLOW; NITRITE,URINE NEGATIVE (NEG); PROTEIN,URINE NEGATIVE (NEG-TRACE); UROBILINOGEN,URINE 0.2 mg/dL (0.2 mg/dL)
[2018-09-01 15:32] LABS: BARBITURATES NEG (NEG); BENZODIAZEPINES NEG (NEG); CANNABINOIDS POS (NEG); COCAINE NEG (NEG); METHADONE NEG (NEG); OPIATES NEG (NEG); PHENCYCLIDINE NEG (NEG)
[2018-09-01 15:34] LABS: BACTERIA,URINE MOD /HPF (0-FEW); SQUAMOUS EPITHELIAL CELL,UR MOD /LPF
[2018-09-01 15:35] LABS: AMPHETAMINE/METHAMPHETAMINE POS (NEG); RBC,URINE OCC /HPF (0-2)
--- NOTE | 2018-09-01 15:57 | RAD ---
EXAM: CT HEAD WITHOUT IV CONTRAST CLINICAL HISTORY: Fall, head and neck pain. COMPARISON: None. TECHNIQUE: Routine CT of the head without contrast. Soft tissues and bone windows were reviewed. PQRS compliance statement - One or more of the following individualized dose reduction techniques were utilized for this study: 1. Automated exposure control 2. Adjustment of the mA and/or kV according to patient size 3. Use of iterative reconstruction technique FINDINGS: There is no evidence of hemorrhage, mass or extra-axial fluid collection. Madsen-white differentiation is maintained with no evidence of edema. There is no mass effect or shift of the intracranial structures. The ventricles, basilar cisterns and cortical sulci are normal in size and configuration for the patients stated age. The cerebellum and brainstem are unremarkable. The calvarium demonstrates no evidence of fracture or focal lesion. The diffuse opacification and thickening of the maxillary sinuses and ethmoid air cells as well as the left frontal sinus, possibly sinusitis. The mastoid air cells are clear. The visualized portions of the orbits are normal. IMPRESSION: No evidence for acute intracranial abnormality. Diffuse opacification of the paranasal sinuses possibly from sinusitis. EXAM: CT CERVICAL SPINE WITHOUT IV CONTRAST CLINICAL HISTORY: Fall, head and neck pain COMPARISON: None available. TECHNIQUE: Helical CT of the cervical spine was performed. Axial, coronal and sagittal reformatted images were also performed. PQRS compliance statement - One or more of the following individualized dose reduction techniques were utilized for this study: 1. Automated exposure control 2. Adjustment of the mA and/or kV according to patient size 3. Use of iterative reconstruction technique FINDINGS: Vertebral body heights are preserved. Intervertebral disc heights are grossly preserved. No significant spondylolisthesis. Mild straightening of the normal cervical lordosis. No evidence for acute fracture. 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 IMPRESSION: 1. Negative acute fracture or subluxation. Electronically signed by: Tim Prado MD (09/01/2018 3:54 PM) [id number]
--- NOTE | 2018-09-01 16:04 | RAD ---
CT study lumbar spine without contrast Clinical indications: Fall. Back pain. TECHNIQUE: Noncontrast helical CT scanning of the lumbar spine was performed. Multiplanar 2-D reconstructions were generated. PQRS compliance Statement One or more of the following individualized dose reduction techniques were utilized for this study: 1. Automated exposure control 2. Adjustment of the mA and/or kV according to patient size 3. Use of iterative reconstruction technique FINDINGS: No compression fracture discitis or lytic process is evident. The transverse processes are intact. There is a grade 1 anterolisthesis of L5-S1 secondary to bilateral spondylolysis of L5. There is a mild central disc protrusion at L4-5. There is mild narrowing of the neural foramina bilaterally at L5-S1. IMPRESSION: No acute compression fracture. Grade 1 anterolisthesis of L5-S1 secondary to bilateral spondylolysis of L5. Electronically signed by: Cheko Bermudez MD (09/01/2018 4:01 PM) [id number]
--- NOTE | 2018-09-01 16:11 | PHYS DOC ---
Past Medical History Past Medical History: No Pertinent History, Kidney Stone Past Surgical History: Appendectomy, Tubal ligation Additional Past Surgical Histo: D&C Alcohol Use: Occasionally Drug Use: None Adult General Chief Complaint Chief Complaint: MECHANICAL FALL HPI HPI Patient is a 42 year old female who presents with 10 out of 10 neck, mid and low back pain status post falling, patient states she was cleaning her house, she states she was on the top stair case, she states she had a bag of trash which fell down, she states she fell down looking at the trash that was falling down. Patient denies any loss of consciousness. Denies hitting her head on the ground, denies being on any anticoagulants. She describes the pain as throbbing and constant, she states laying on her back worsens her pain. She states she has not taken anything specifically to relieve her pain. Patient denies any numbness or tingling to bilateral lower extremities, denies any loss of bowel bladder function. Review of Systems Review of Systems Constitutional: Denies fever or chills [] Eyes: Denies change in visual acuity, redness, or eye pain [] HENT: Denies nasal congestion or sore throat [] Respiratory: Denies cough or shortness of breath [] Cardiovascular: No additional information not addressed in HPI [] GI: Denies abdominal pain, nausea, vomiting, bloody stools or diarrhea [] : Denies dysuria or hematuria [] Musculoskeletal: Reports neck, mid and low back pain Integument: Denies rash or skin lesions [] Neurologic: Denies headache, focal weakness or sensory changes [] All other systems were reviewed and found to be within normal limits, except as documented in this note. Current Medications Current Medications Current Medications Medications (Trade) Dose Ordered Sig/[facility] Start Time Stop Time Status Last Admin Dose Admin Cyclobenzaprine HCl (Flexeril) 10 mg 1X ONCE 09/01/18 15:00 09/01/18 15:04 DC 09/01/18 15:19 10 MG Morphine Sulfate (Morphine Sulfate) 5 mg 1X ONCE 09/01/18 15:00 09/01/18 15:04 DC 09/01/18 15:19 5 MG Allergies Allergies Allergies Coded Allergies Type Severity Reaction Last Updated Verified Penicillins Allergy Severe hives 08/13/13 Yes Physical Exam Physical Exam Constitutional: Well developed, well nourished, no acute distress, non-toxic appearance. [] HENT: Normocephalic, atraumatic, bilateral external ears normal, oropharynx moist, no oral exudates, nose normal. [] Eyes: PERRLA, EOMI, conjunctiva normal, no discharge. [] Neck: Cervical collar present. Normal range of motion, slight midline tenderness to the cervical spine as well as diffuse paraspinal muscle tenderness to the cervical spine, supple, no stridor. [] Cardiovascular:Heart rate regular rhythm, no murmur [] Lungs & Thorax: Bilateral breath sounds clear to auscultation [] Abdomen: Bowel sounds normal, soft, no tenderness, no masses, no pulsatile masses. [] Skin: Warm, dry, no erythema, no rash. [] Back: Mild midline tenderness to thoracic and lumbar spine, paraspinal muscle tenderness to thoracic and lumbar spine, no CVA tenderness. [] Extremities: No tenderness, no cyanosis, no clubbing, ROM intact, no edema. [] Neurologic: Alert and oriented X 3, normal motor function, normal sensory function, no focal deficits noted. [] Psychologic: Affect normal, judgement normal, mood normal. [] Current Patient Data Vital Signs Vital Signs Date Time Temp Pulse Resp B/P (MAP) Pulse Ox O2 Delivery O2 Flow Rate FiO2 09/01/18 15:19 16 98 Room Air 09/01/18 14:52 98.6 91 115/73 (87) 98.6 Lab Values Laboratory Tests Test 09/01/18 15:21 Urine Collection Type Unknown Urine Color Yellow Urine Clarity Clear Urine pH 6.0 Urine Specific [place] 1.025 Urine Protein Negative mg/dL (NEG-TRACE) Urine Glucose (UA) Negative mg/dL (NEG) Urine Ketones (Stick) Negative mg/dL (NEG) Urine Blood Trace (NEG) Urine Nitrite Negative (NEG) Urine Bilirubin Negative (NEG) Urine Urobilinogen Dipstick 0.2 mg/dL (0.2 mg/dL) Urine Leukocyte Esterase Small (NEG) Urine RBC Occ /HPF (0-2) Urine WBC 5-10 /HPF (0-4) Urine Squamous Epithelial Cells Mod /LPF Urine Bacteria Mod /HPF (0-FEW) Urine Mucus Marked /LPF Urine Opiates Screen Neg (NEG) Urine Methadone Screen Neg (NEG) Urine Barbiturates Neg (NEG) Urine Phencyclidine Screen Neg (NEG) Urine Amphetamine/Methamphetamine Pos (NEG) Urine Benzodiazepines Screen Neg (NEG) Urine Cocaine Screen Neg (NEG) Urine Cannabinoids Screen Pos (NEG) Urine Ethyl Alcohol Neg (NEG) EKG EKG [] Radiology/Procedures Radiology/Procedures []PROCEDURE: CT HEAD AND CERVICAL SPINE WO EXAM: CT HEAD WITHOUT IV CONTRAST CLINICAL HISTORY: Fall, head and neck pain. COMPARISON: None. TECHNIQUE: Routine CT of the head without contrast. Soft tissues and bone windows were reviewed. PQRS compliance statement - One or more of the following individualized dose reduction techniques were utilized for this study: 1. Automated exposure control 2. Adjustment of the mA and/or kV according to patient size 3. Use of iterative reconstruction technique FINDINGS: There is no evidence of hemorrhage, mass or extra-axial fluid collection. Madsen-white differentiation is maintained with no evidence of edema. There is no mass effect or shift of the intracranial structures. The ventricles, basilar cisterns and cortical sulci are normal in size and configuration for the patients stated age. The cerebellum and brainstem are unremarkable. The calvarium demonstrates no evidence of fracture or focal lesion. The diffuse opacification and thickening of the maxillary sinuses and ethmoid air cells as well as the left frontal sinus, possibly sinusitis. The mastoid air cells are clear. The visualized portions of the orbits are normal. IMPRESSION: No evidence for acute intracranial abnormality. Diffuse opacification of the paranasal sinuses possibly from sinusitis. EXAM: CT CERVICAL SPINE WITHOUT IV CONTRAST CLINICAL HISTORY: Fall, head and neck pain COMPARISON: None available. TECHNIQUE: Helical CT of the cervical spine was performed. Axial, coronal and sagittal reformatted images were also performed. PQRS compliance statement - One or more of the following individualized dose reduction techniques were utilized for this study: 1. Automated exposure control 2. Adjustment of the mA and/or kV according to patient size 3. Use of iterative reconstruction technique FINDINGS: Vertebral body heights are preserved. Intervertebral disc heights are grossly preserved. No significant spondylolisthesis. Mild straightening of the normal cervical lordosis. No evidence for acute fracture. 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 IMPRESSION: 1. Negative acute fracture or subluxation. Electronically signed by: Tim Schneider MD (09/01/2018 3:54 PM) [id number] DICTATED and SIGNED BY: TIM SCHNEIDER MD DATE: 09/01/18 1554 PROCEDURE: CT LUMBAR SPINE WO CONTRAST CT study lumbar spine without contrast Clinical indications: Fall. Back pain. TECHNIQUE: Noncontrast helical CT scanning of the lumbar spine was performed. Multiplanar 2-D reconstructions were generated. PQRS compliance Statement One or more of the following individualized dose reduction techniques were utilized for this study: 1. Automated exposure control 2. Adjustment of the mA and/or kV according to patient size 3. Use of iterative reconstruction technique FINDINGS: No compression fracture discitis or lytic process is evident. The transverse processes are intact. There is a grade 1 anterolisthesis of L5-S1 secondary to bilateral spondylolysis of L5. There is a mild central disc protrusion at L4-5. There is mild narrowing of the neural foramina bilaterally at L5-S1. IMPRESSION: No acute compression fracture. Grade 1 anterolisthesis of L5-S1 secondary to bilateral spondylolysis of L5. Electronically signed by: Cheko Bermudez MD (09/01/2018 4:01 PM) [id number] DICTATED and SIGNED BY: CHEKO BERMUDEZ MD DATE: 09/01/18 1601 PROCEDURE: CT THORACIC SPINE WO CONTRAST CLINICAL HISTORY: Fall, back pain COMPARISON: None available. TECHNIQUE: Helical CT of the thoracic spine was performed and axial, coronal and sagittal reformatted images were generated. PQRS compliance statement - One or more of the following individualized dose reduction techniques were utilized for this study: 1. Automated exposure control 2. Adjustment of the mA and/or kV according to patient size 3. Use of iterative reconstruction technique FINDINGS: There is normal alignment of the thoracic spine. There is preservation of height of the vertebral bodies with normal bone density. The height of the intervertebral discs is maintained. A 5 mm groundglass nodule seen in the posterior right lower lobe. IMPRESSION: 1. No evidence for acute fracture or subluxation. 2. Per Fleischner Society guidelines for incidentally found solitary ground-glass nodule <6 mm, no routine follow-up is indicated. Electronically signed by: Tim Schneider MD (09/01/2018 4:09 PM) [id number] DICTATED and SIGNED BY: TIM SCHNEIDER MD DATE: 09/01/18 1609 Course & Med Decision Making Course & Med Decision Making Pertinent Labs and Imaging studies reviewed. (See chart for details) This is a 42-year-old female patient presenting to the ED today with complaints of neck, mid and low back pain status post falling. CT of the head, cervical spine, thoracic and lumbar spine are negative for any acute findings, patient was discharged to home. Follow-up with primary care doctor in 1-2 weeks. Provided return precautions and discharged in stable condition. Dragon Disclaimer Dragon Disclaimer This electronic medical record was generated, in whole or in part, using a voice recognition dictation system. Departure Departure Impression: Primary Impression: Fall from standing Additional Impressions: Acute cervical sprain Contusion of thoracic wall Lumbar contusion Disposition: HOME, SELF-CARE Condition: STABLE Referrals: NO PCP (PCP) Follow-up with your doctor in 1-2 weeks Patient Instructions: Contusion, [id number], Fall Prevention and Home Safety Additional Instructions: You were evaluated in the emergency room for neck and back pain after falling, your CT of the head, cervical spine, thoracic and lumbar spine are negative for any acute findings. Please follow-up with your doctor in 1-2 weeks. Take the prescribed medications as ordered. Scripts Methylprednisolone (MEDROL) 4 Mg Tab.ds.pk 1 PKG PO UD, #1 PKG Prov: VIRI SHULTZ APRN 09/01/18 Diclofenac Sodium (DICLOFENAC SODIUM) 50 Mg Tablet.dr 1 TAB PO BID, #20 TAB 0 Refills Prov: VIRI SHULTZ APRN 09/01/18 Cyclobenzaprine Hcl (CYCLOBENZAPRINE HCL) 10 Mg Tablet 1 TAB PO TID, #30 TAB Prov: VIRI SHULTZ APRN 09/01/18 Problem Qualifiers Primary Impression: Fall from standing Encounter type: initial encounter Qualified Codes: W19.XXXA - Unspecified fall, initial encounter Additional Impressions: Acute cervical sprain Encounter type: initial encounter Qualified Codes: S13.9XXA - Sprain of joints and ligaments of unspecified parts of neck, initial encounter Contusion of thoracic wall Encounter type: initial encounter Contusion of thoracic wall detail: back wall of thorax Laterality: unspecified laterality Qualified Codes: S20.229A - Contusion of unspecified back wall of thorax, initial encounter Lumbar contusion Encounter type: initial encounter Qualified Codes: S30.0XXA - Contusion of lower back and pelvis, initial encounter VIRI SHULTZ APRN September 01, 2018 16:11
[2018-09-01 17:00] VITALS: BP 117/72
[2018-09-01] MEDS ORDERED: CYCL10TA2 PO (17:10)
[2018-09-01] MEDS ORDERED: METH4TAB2 PO (17:10)
[2018-09-01] MEDS ORDERED: DICL50TA4 PO (17:10)
[2018-09-01] MEDS ORDERED: KETOROLAC 60 MG/2 ML VIAL. IM ONE (17:30)
== END 2018-09-01 17:28 | disposition home or self-care (01) ==
LOC: ER 14:38
DX: S13.8XXA Sprain of joints and ligaments of other parts of neck, initial encounter (principal); S30.0XXA Contusion of lower back and pelvis, initial encounter; S20.229A Contusion of unspecified back wall of thorax, initial encounter; R51 Headache; Z90.89 Acquired absence of other organs; Z98.51 Tubal ligation status; Z87.442 Personal history of urinary calculi; Z88.0 Allergy status to penicillin; W10.8XXA Fall (on) (from) other stairs and steps, initial encounter; Y93.89 Activity, other specified; Y92.009 Unspecified place in unspecified non-institutional (private) residence as the place of occurrence of the external cause; Y99.8 Other external cause status
CPT/HCPCS: 70450; 72125; 72128; 72131; 80307; 81001; 96372; 99285; J1885; J2270

== ENCOUNTER 2018-10-06 23:30 | Emergency (ER) | payer SELFPAY ==
[~2018-10-06] VITALS: Ht 162.6 cm; Wt 66.2 kg
[~2018-10-06 23:30] MED LIST changes: +CYCL10TA2 PO; +DICL50TA4 PO; +METH4TAB2 PO
[2018-10-06 23:33] VITALS: BP 102/57
[2018-10-06] MEDS ORDERED: LIDOCAINE 1%/EPI 1:100,000 20 ML VIAL. ONE (23:57)
[2018-10-07] MEDS ORDERED: LIDOCAINE 1%/EPI 1:100,000 20 ML VIAL. INJ ONE
[2018-10-07] MEDS ORDERED: CLIN300C8 PO (00:13)
[2018-10-07] MEDS ORDERED: HYDROcodone/APAP 5/325MG 1 TAB TABLET PO ONE (00:30)
--- NOTE | 2018-10-07 00:36 | PHYS DOC ---
Past Medical History Past Medical History: No Pertinent History, Kidney Stone Past Surgical History: Appendectomy, Tubal ligation Additional Past Surgical Histo: D&C Alcohol Use: Occasionally Drug Use: None Adult General Chief Complaint Chief Complaint: SKIN RASH/ABSCESS HPI HPI Patient is a 42 year old f with cc of abscess right buttock pain x four days no fever noted. She has had abscesses in the past symptoms are moderate to severe dull nonradiating no problems urinating or having a bowel movement Review of Systems Review of Systems Constitutional: Denies fever or chills [] Eyes: Denies change in visual acuity, redness, or eye pain [] HENT: Denies nasal congestion or sore throat [] Respiratory: Denies cough or shortness of breath [] Cardiovascular: No additional information not addressed in HPI [] GI: Denies abdominal pain, nausea, vomiting, bloody stools or diarrhea [] Neurologic: Denies headache, focal weakness or sensory changes [] Endocrine: Denies polyuria or polydipsia [] All other systems were reviewed and found to be within normal limits, except as documented in this note. Current Medications Current Medications Current Medications Medications (Trade) Dose Ordered Sig/Shon Start Time Stop Time Status Last Admin Dose Admin Acetaminophen/ Hydrocodone Bitart (Lortab 5/325) 2 tab 1X ONCE 10/07/18 00:30 10/07/18 00:30 DC 10/07/18 00:21 2 TAB Lidocaine/ Epinephrine (LIDOCAINE 1%-EPI 1:100,000 Multi-Dose) 20 ml STK-MED ONCE 10/06/18 23:57 10/06/18 23:58 DC Allergies Allergies Allergies Coded Allergies Type Severity Reaction Last Updated Verified Penicillins Allergy Severe hives 08/13/13 Yes Physical Exam Physical Exam Constitutional: Well developed, well nourished, no acute distress, non-toxic appearance. [] HENT: Normocephalic, atraumatic, bilateral external ears normal, oropharynx moist, no oral exudates, nose normal. [] Eyes: PERRLA, EOMI, conjunctiva normal, no discharge. [] Neck: Normal range of motion, no tenderness, supple, no stridor. [] Pulmonary: Normal respiratory effort no increased work of breathing no obvious chest wall trauma Skin: There is an area of erythema with some induration there is a white head noted personally 3 cm total right buttock is separate from the anus no perianal involvement Back: No tenderness, no CVA tenderness. [] Extremities: No tenderness, no cyanosis, no clubbing, ROM intact, no edema. [] Neurologic: Alert and oriented X 3, normal motor function, normal sensory function, no focal deficits noted. [] Psychologic: Affect normal, judgement normal, mood normal. [] Current Patient Data Vital Signs Vital Signs Date Time Temp Pulse Resp B/P (MAP) Pulse Ox O2 Delivery O2 Flow Rate FiO2 10/06/18 23:33 97.7 93 16 102/57 (72) 99 Room Air 97.7 EKG EKG [] Radiology/Procedures Radiology/Procedures [] Course & Med Decision Making Course & Med Decision Making Pertinent Labs and Imaging studies reviewed. (See chart for details) []Procedure note: Verbal consent obtained area was prepped in the usual sterile fashion lidocaine subcutaneous for anesthesia was used a 1 cm incision was made with an 11 blade and a small amount approximately 1-2 mmol of pus was returned by questions were explored the wound was packed patient tolerated well overall and was given good wound care instructions return precautions discussed and she was understanding. Dragon Disclaimer Dragon Disclaimer This electronic medical record was generated, in whole or in part, using a voice recognition dictation system. Departure Departure Impression: Primary Impression: Abscess Disposition: 01 HOME, SELF-CARE Condition: STABLE Patient Instructions: Abscess, [id number] Scripts Clindamycin Hcl (CLINDAMYCIN HCL) 300 Mg Capsule 1 CAP PO TID, #21 CAP Prov: MASTER LUBIN MD 10/07/18 MASTER LUBIN MD Oct 07, 2018 00:36
== END 2018-10-07 00:22 | disposition home or self-care (01) ==
LOC: ER 23:30
DX: L02.31 Cutaneous abscess of buttock (principal); Z90.89 Acquired absence of other organs; Z98.51 Tubal ligation status; Z87.442 Personal history of urinary calculi; Z88.0 Allergy status to penicillin
CPT/HCPCS: 10060; 99283; J3490

== ENCOUNTER 2018-11-01 02:36 | Emergency (ER) | payer SELFPAY ==
[~2018-11-01] VITALS: Ht 162.6 cm; Wt 66.2 kg
[~2018-11-01 02:36] MED LIST changes: +CLIN300C8 PO
[2018-11-01 03:09] LABS: BASO % 1 % (0-3); EOS # 0.3 x10^3/uL (0.0-0.7); EOS % 4 % (0-3); HEMATOCRIT 37.2 % (36.0-47.0); HEMOGLOBIN 12.7 g/dL (12.0-15.5); LYMPH # 2.4 x10^3/uL (1.0-4.8); LYMPH % 31 % (24-48); MEAN CORPUSCULAR HEMOGLOBIN 29 pg (25-35); MEAN CORPUSCULAR HGB CONC 34 g/dL (31-37); MEAN CORPUSCULAR VOLUME 85 fL (79-100); MONO # 0.4 x10^3/uL (0.0-1.1); MONO % 5 % (0-9); NEUT # 4.6 x10^3uL (1.8-7.7); NEUT % 59 % (31-73); PLATELET COUNT 230 x10^3/uL (140-400); RED BLOOD COUNT 4.37 x10^6/uL (3.50-5.40); RED CELL DISTRIBUTION WIDTH 14.2 % (11.5-14.5); WHITE BLOOD COUNT 7.7 x10^3/uL (4.0-11.0)
[2018-11-01 03:23] LABS: PROTHROMBIN TIME PATIENT 13.3 SEC (11.7-14.0)
[2018-11-01 03:28] LABS: CALCIUM 8.8 mg/dL (8.5-10.1); CREATININE 1.1 mg/dL (0.6-1.0); GFR 54.7; POTASSIUM 3.7 mmol/L (3.5-5.1)
[2018-11-01 03:29] LABS: ALBUMIN 3.4 g/dL (3.4-5.0); TOTAL BILIRUBIN 0.3 mg/dL (0.2-1.0); TOTAL PROTEIN 6.7 g/dL (6.4-8.2)
[2018-11-01 03:30] LABS: D-DIMER < 0.27 ug/mlFEU (0.00-0.50)
[2018-11-01] MEDS ORDERED: KETOROLAC 15 MG/ML VIAL. IV ONE (03:30)
[2018-11-01] MEDS ORDERED: CYCL5TAB PO (03:46)
[2018-11-01 03:48] VITALS: BP 141/101
--- NOTE | 2018-11-01 03:53 | PHYS DOC ---
Past Medical History Past Medical History: No Pertinent History, Kidney Stone Past Surgical History: Appendectomy, Tubal ligation Additional Past Surgical Histo: D&C Alcohol Use: Occasionally Drug Use: None Adult General Chief Complaint Chief Complaint: MULTIPLE COMPLAINTS HPI HPI Patient is a 42 year old female straight with chief complaint of back pain and chest pain. She helped somebody lift something heavy she was having some pain in her left scapular area radiating around her chest was worse with palpation deep breathing and twisting so she came to the emergency room for evaluation. Pain is now severe she has not yet tried anything for relief. Review of Systems Review of Systems Constitutional: Denies fever or chills [] Eyes: Denies change in visual acuity, redness, or eye pain [] HENT: Denies nasal congestion or sore throat [] Respiratory: Denies cough or shortness of breath [] Cardiovascular: No additional information not addressed in HPI [] GI: Denies abdominal pain, nausea, vomiting, bloody stools or diarrhea [] : Denies dysuria or hematuria [] Musculoskeletal: Integument: Denies rash or skin lesions [] Neurologic: Denies headache, focal weakness or sensory changes [] Endocrine: Denies polyuria or polydipsia [] All other systems were reviewed and found to be within normal limits, except as documented in this note. Current Medications Current Medications Current Medications Medications (Trade) Dose Ordered Sig/Shon Start Time Stop Time Status Last Admin Dose Admin Ketorolac Tromethamine (Toradol 15mg Vial) 15 mg 1X ONCE 11/01/18 03:30 11/01/18 03:31 DC 11/01/18 03:24 15 MG Lorazepam (Ativan Inj) 1 mg 1X ONCE 11/01/18 03:30 11/01/18 03:31 DC 11/01/18 03:24 1 MG Allergies Allergies Allergies Coded Allergies Type Severity Reaction Last Updated Verified Penicillins Allergy Severe hives 08/13/13 Yes Physical Exam Physical Exam Constitutional: Well developed, well nourished, no acute distress, non-toxic appearance. [] HENT: Normocephalic, atraumatic, bilateral external ears normal, oropharynx moist, no oral exudates, nose normal. []Poor dentition Eyes: PERRLA, EOMI, conjunctiva normal, no discharge. [] Neck: Normal range of motion, no tenderness, supple, no stridor. [] Cardiovascular:Heart rate regular rhythm, no murmur [] Lungs & Thorax: Bilateral breath sounds clear to auscultation []there is chest wall tenderness reproducible to palpation on the left Abdomen: Bowel sounds normal, soft, no tenderness, no masses, no pulsatile masses. [] Skin: Warm, dry, no erythema, no rash. [] Back: Upper lateral thoracic paraspinous tenderness Extremities: No tenderness, no cyanosis, no clubbing, ROM intact, no edema. [] Neurologic: Alert and oriented X 3, normal motor function, normal sensory function, no focal deficits noted. [] Psychologic: Affect normal, judgement normal, mood normal. [] Current Patient Data Vital Signs Vital Signs Date Time Temp Pulse Resp B/P (MAP) Pulse Ox O2 Delivery O2 Flow Rate FiO2 11/01/18 02:56 98.2 87 20 149/83 (105) 100 Room Air 98.2 Lab Values Laboratory Tests Test 11/01/18 02:43 White Blood Count 7.7 x10^3/uL (4.0-11.0) Red Blood Count 4.37 x10^6/uL (3.50-5.40) Hemoglobin 12.7 g/dL (12.0-15.5) Hematocrit 37.2 % (36.0-47.0) Mean Corpuscular Volume 85 fL (79-100) Mean Corpuscular Hemoglobin 29 pg (25-35) Mean Corpuscular Hemoglobin Concent 34 g/dL (31-37) Red Cell Distribution Width 14.2 % (11.5-14.5) Platelet Count 230 x10^3/uL (140-400) Neutrophils (%) (Auto) 59 % (31-73) Lymphocytes (%) (Auto) 31 % (24-48) Monocytes (%) (Auto) 5 % (0-9) Eosinophils (%) (Auto) 4 % (0-3) H Basophils (%) (Auto) 1 % (0-3) Neutrophils # (Auto) 4.6 x10^3uL (1.8-7.7) Lymphocytes # (Auto) 2.4 x10^3/uL (1.0-4.8) Monocytes # (Auto) 0.4 x10^3/uL (0.0-1.1) Eosinophils # (Auto) 0.3 x10^3/uL (0.0-0.7) Basophils # (Auto) 0.0 x10^3/uL (0.0-0.2) Prothrombin Time 13.3 SEC (11.7-14.0) Prothrombin Time INR 1.0 (0.8-1.1) D-Dimer (Donya) < 0.27 ug/mlFEU Maternal Serum HCG Beta Subunit 4 mIU/mL (0-5) Sodium Level 138 mmol/L (136-145) Potassium Level 3.7 mmol/L (3.5-5.1) Chloride Level 104 mmol/L (98-107) Carbon Dioxide Level 25 mmol/L (21-32) Anion Gap 9 (6-14) Blood Urea Nitrogen 18 mg/dL (7-20) Creatinine 1.1 mg/dL (0.6-1.0) H Estimated GFR (Cockcroft-Gault) 54.7 BUN/Creatinine Ratio 16 (6-20) Glucose Level 90 mg/dL (70-99) Calcium Level 8.8 mg/dL (8.5-10.1) Total Bilirubin 0.3 mg/dL (0.2-1.0) Aspartate Amino Transferase (AST) 21 U/L (15-37) Alanine Aminotransferase (ALT) 46 U/L (14-59) Alkaline Phosphatase 104 U/L (46-116) Troponin I Quantitative < 0.017 ng/mL (0.000-0.055) Total Protein 6.7 g/dL (6.4-8.2) Albumin 3.4 g/dL (3.4-5.0) Albumin/Globulin Ratio 1.0 (1.0-1.7) Laboratory Tests 11/01/18 02:43 Laboratory Tests 11/01/18 02:43 EKG EKG []Normal sinus rhythm rate 96 no acute ischemic changes noted interpreted by me the time of encounter Radiology/Procedures Radiology/Procedures [] Impressions: Chest x-ray negative interpreted by me no pneumonia and no pneumothorax normal bones Course & Med Decision Making Course & Med Decision Making Pertinent Labs and Imaging studies reviewed. (See chart for details) []D-dimer troponin EKG negative patient has very reproducible symptoms sounds musculoskeletal to me patient was given Ativan and Toradol with some improvement in her symptoms prescription for Flexeril return precautions discussed Dragon Disclaimer Naima Disclaimer This electronic medical record was generated, in whole or in part, using a voice recognition dictation system. Departure Departure Impression: Primary Impression: Back pain Disposition: HOME, SELF-CARE Condition: STABLE Patient Instructions: Back Pain, Adult, Akhe-op-Oxsi Scripts Cyclobenzaprine Hcl (CYCLOBENZAPRINE HCL) 5 Mg Tablet 1 TAB PO TID PRN for PAIN, #10 TAB Prov: MASTER LUBIN MD 11/01/18 MASTER LUBIN MD Nov 01, 2018 03:52
--- NOTE | 2018-11-01 08:17 | RAD ---
AP portable chest radiograph 11/01/2018 Clinical History: Left-sided chest pain. An AP erect portable digital radiograph of the chest was obtained. Comparison study is dated 08/22/2018. The patient is slightly rotated to the right. The cardiac silhouette is normal in size. The thoracic aorta is minimally tortuous. No acute pulmonary infiltrate is seen. No pleural effusion or pneumothorax is noted the osseous structures are unchanged. Impression: No acute abnormality is seen. Electronically signed by: Brigido Leary MD (11/01/2018 8:14 AM) [place] [id number]
--- NOTE | 2018-11-01 08:56 | EKG ---
[facility] [address] [place] [address] Test Date: 2018-11-01 Test Time: 02:44:20 Pat Name: DANY HOOVER Department: Room: Gender: F Program Director [employer]: [id number] : 1975 Requested By: MASTER LUBIN Order Number: [id number] Reading MD: Measurements Intervals [place] Rate: 96 P: 90 UT: 154 QRS: 68 QRSD: 76 T: 40 QT: 348 QTc: 441 Interpretive Statements SINUS RHYTHM NORMAL ECG RI6.01 Unconfirmed report No previous ECG available for comparison
== END 2018-11-01 03:59 | disposition home or self-care (01) ==
LOC: ER 02:36
DX: M54.6 Pain in thoracic spine (principal); R07.89 Other chest pain; Z90.89 Acquired absence of other organs; Z98.51 Tubal ligation status; Z87.442 Personal history of urinary calculi; Z88.0 Allergy status to penicillin
CPT/HCPCS: 36415; 71045; 80053; 84484; 84702; 85025; 85379; 85610; 93005; 96374; 96375; 99285; J1885; J2060

== ENCOUNTER 2019-06-02 21:19 | Emergency (ER) | payer SELFPAY ==
[~2019-06-02] VITALS: Ht 162.6 cm; Wt 70.5 kg
[~2019-06-02 21:19] MED LIST changes: +CYCL5TAB PO
[2019-06-02 21:50] VITALS: BP 135/70
--- NOTE | 2019-06-02 22:17 | RAD ---
Exam: Right hand 3 views INDICATION: Pain TECHNIQUE: Frontal, lateral and oblique views of the right hand Comparisons: Pain FINDINGS: Fixation screws noted at the proximal phalanx of the fourth digit. No acute or healed fractures. Soft tissues are unremarkable. Joint spaces are well-maintained. IMPRESSION: No acute osseous abnormality. Electronically signed by: Tavon Ruiz MD (06/02/2019 10:14 PM) [id number]
[2019-06-02] MEDS ORDERED: NAPROXEN 500 MG TABLET PO ONE (23:15)
[2019-06-02] MEDS ORDERED: HYDROcodone/APAP 5/325MG 1 TAB TABLET PO ONE (23:15)
--- NOTE | 2019-06-02 23:26 | PHYS DOC ---
Past Medical History Past Medical History: No Pertinent History, Kidney Stone (VIRI SHULTZ APRN) Past Surgical History: Appendectomy, Tubal ligation Additional Past Surgical Histo: D&C (VIRI SHULTZ APRN) Smoking Status: Current Every Day Smoker Alcohol Use: None Drug Use: None (VIRI SHULTZ APRN) Attending Signature I have participated in the care of this patient and I have reviewed and agree with all pertinent clinical information above including history, exam, and recommendations. (CONSTANCE LANGSTON MD) Adult General Chief Complaint Chief Complaint: HAND PROBLEM HPI HPI Patient is a 43 year old Right-handed female presenting to the ED today with 10 out of 10 right hand pain that began this evening after her right hand got caught in a dog collar. Patient reports the pain is worse on the ring finger which she reports she broke 4 years ago.she describes the pain as sharp and constant worse on touching the ring finger. (VIRI SHULTZ APRN) Review of Systems Review of Systems Constitutional: Denies fever or chills [] Musculoskeletal: reports right hand pain Integument: Denies rash or skin lesions [] Neurologic: Denies headache, focal weakness or sensory changes [] All other systems were reviewed and found to be within normal limits, except as documented in this note. (VIRI SHULTZ APRN) Current Medications Current Medications Current Medications Medications (Trade) Dose Ordered Sig/Shon Start Time Stop Time Status Last Admin Dose Admin Acetaminophen/ Hydrocodone Bitart (Lortab 5/325) 2 tab 1X ONCE 06/02/19 23:15 06/02/19 23:16 DC 06/02/19 23:14 2 TAB Naproxen (Naprosyn) 500 mg 1X ONCE 06/02/19 23:15 06/02/19 23:16 DC 06/02/19 23:14 500 MG (CONSTANCE LANGSTON MD) Allergies Allergies Allergies Coded Allergies Type Severity Reaction Last Updated Verified Penicillins Allergy Severe hives 08/13/13 Yes (CONSTANCE LANGSTON MD) Physical Exam Physical Exam Constitutional: Well developed, well nourished, no acute distress, non-toxic appearance. [] Skin: Warm, dry, no erythema, no rash. [] Back: No tenderness, no CVA tenderness. [] Extremities: right hand with no obvious deformity. Tenderness on palpation of the right ring finger. Full range of motion to the right hand and fingers. Adequate radial, medial, ulnar sensation to the right hand. +2 right radial pulse. Cap refill less than 2 seconds the right fingers. Neurologic: Alert and oriented X 3, normal motor function, normal sensory function, no focal deficits noted. [] Psychologic: Affect normal, judgement normal, mood normal. [] (VIRI SHULTZ APRN) Current Patient Data Vital Signs Vital Signs Date Time Temp Pulse Resp B/P (MAP) Pulse Ox O2 Delivery O2 Flow Rate FiO2 06/02/19 23:14 20 100 Room Air 06/02/19 21:50 98.6 108 135/70 (91) 98.6 (CONSTANCE LANGSTON MD) EKG EKG [] (VIRI SHULTZ APRN) Radiology/Procedures Radiology/Procedures []PROCEDURE: HAND RIGHT 3V Exam: Right hand 3 views INDICATION: Pain TECHNIQUE: Frontal, lateral and oblique views of the right hand Comparisons: Pain FINDINGS: Fixation screws noted at the proximal phalanx of the fourth digit. No acute or healed fractures. Soft tissues are unremarkable. Joint spaces are well-maintained. IMPRESSION: No acute osseous abnormality. Electronically signed by: Tavon Grover MD (06/02/2019 10:14 PM) [id number] DICTATED and SIGNED BY: TAVON GROVER MD DATE: 06/02/192213 (VIRI SHULTZ APRN) Course & Med Decision Making Course & Med Decision Making Pertinent Labs and Imaging studies reviewed. (See chart for details) This is a 43-year-old female patient presenting to the ED with right hand pain that began after her right hand got caught in a dog collar. Right hand x-rays interpreted by radiologist are negative for any acute findings. Ice elevation encouraged. Diclofenac for pain. Follow-up with orthopedic doctor in 1-2 weeks. (VIRI SHUTLZ APRN) Dragon Disclaimer Dragon Disclaimer This electronic medical record was generated, in whole or in part, using a voice recognition dictation system. (VIRI SHULTZ APRN) Departure Departure Impression: Primary Impression: Sprain of right hand Disposition: HOME, SELF-CARE Condition: STABLE Referrals: NO PCP (PCP) BOBY OLIVEIRA MD follow up in 1-2 weeks Patient Instructions: Joint Sprain Additional Instructions: You were evaluated in the emergency room for right hand pain, your right hand x- rays are negative for any acute findings. You can follow-up with the provided orthopedic doctor in 1-2 weeks. Problem Qualifiers Primary Impression: Sprain of right hand Encounter type: initial encounter Qualified Codes: S63.91XA - Sprain of unspecified part of right wrist and hand, initial encounter VIRI SHULTZ APRN Jun 02, 2019 23:26 CONSTANCE LANGSTON MD Jun 03, 2019 02:53
== END 2019-06-02 23:46 | disposition home or self-care (01) ==
LOC: ER 21:19
DX: S63.91XA Sprain of unspecified part of right wrist and hand, initial encounter (principal); F17.200 Nicotine dependence, unspecified, uncomplicated; Z98.51 Tubal ligation status; Z90.89 Acquired absence of other organs; Z87.442 Personal history of urinary calculi; Z88.0 Allergy status to penicillin; W23.1XXA Caught, crushed, jammed, or pinched between stationary objects, initial encounter; Y93.89 Activity, other specified; Y92.89 Other specified places as the place of occurrence of the external cause; Y99.8 Other external cause status
CPT/HCPCS: 73130; 99284

== ENCOUNTER 2019-11-19 23:19 | Emergency (ER) | payer SELFPAY ==
[~2019-11-19] VITALS: Ht 162.6 cm; Wt 70.5 kg
--- NOTE | 2019-11-19 23:30 | PHYS DOC ---
Past Medical History Past Medical History: No Pertinent History, Kidney Stone Past Surgical History: Appendectomy, Tubal ligation Additional Past Surgical Histo: D&C Smoking Status: Current Every Day Smoker Alcohol Use: None Drug Use: None General Adult EDM: Chief Complaint: VAGINAL BLEEDING HPI: HPI: Patient is a 44 year old female whose last period was 4 years ago presents with vaginal bleeding and lower abdominal cramping that began tonight. Patient states pain is severe and cramping in nature and radiates to the back. Patient has had 2 pads to be bleeding began just prior to arrival. Patient has a history of liver disease and will change see a specialist. Patient denies any other complaints. Review of Systems: Review of Systems: Constitutional: Denies fever or chills. [] Eyes: Denies change in visual acuity. [] HENT: Denies nasal congestion or sore throat. [] Respiratory: Denies cough or shortness of breath. [] Cardiovascular: Denies chest pain or edema. [] GI: Patient complains abdominal pain but no vomiting or diarrhea. : Denies dysuria. But complains of vaginal bleeding Musculoskeletal: Denies back pain or joint pain. [] Integument: Denies rash. [] Neurologic: Denies headache, focal weakness or sensory changes. [] Endocrine: Denies polyuria or polydipsia. [] Lymphatic: Denies swollen glands. [] Psychiatric: Denies depression or anxiety. [] Heart Score: Risk Factors: Risk Factors: DM, Current or recent (<one month) smoker, HTN, HLP, family history of CAD, obesity. Risk Scores: Score 0 - 3: 2.5% MACE over next 6 weeks - Discharge Home Score 4 - 6: 20.3% MACE over next 6 weeks - Admit for Clinical Observation Score 7 - 10: 72.7% MACE over next 6 weeks - Early Invasive Strategies Allergies: Allergies: Allergies Coded Allergies Type Severity Reaction Last Updated Verified Penicillins Allergy Severe hives 08/13/13 Yes Physical Exam: PE: Constitutional: Well developed, well nourished, no acute distress, non-toxic appearance. HENT: No trismus, external ears normal Eyes: Conjunctiva clear, EOMI Neck: Normal range of motion, no tenderness, supple, no stridor. Cardiovascular: Regular rate/rhythm, peripheral pulse intact, BREAKDOWN MAN intact Lungs & Thorax: No respiratory distress Abdomen: Abdomen soft with diffuse lower abdominal tenderness. No guarding or rebound. exam: Desk Director present, mild vaginal bleeding from the cervical loss. Mild cervical motion tenderness. Cervix is closed. Mild tenderness with bimanual exam. No obvious masses felt Skin: Diffuse: Intact, no rash Back: Full ROM Extremities: Normal inspection, no edema Neurologic: Alert and oriented X 3, normal motor function, , no focal deficits noted. Psychologic: Affect normal, judgement normal, mood normal. Current Patient Data: Labs: Laboratory Tests Test 11/19/19 23:49 11/19/19 23:55 11/20/19 01:10 Bedside Urine HCG, Qualitative Hcg negative White Blood Count 9.1 x10^3/uL Red Blood Count 4.37 x10^6/uL Hemoglobin 13.2 g/dL Hematocrit 37.9 % Mean Corpuscular Volume 87 fL Mean Corpuscular Hemoglobin 30 pg Mean Corpuscular Hemoglobin Concent 35 g/dL Red Cell Distribution Width 13.8 % Platelet Count 249 x10^3/uL Neutrophils (%) (Auto) 58 % Lymphocytes (%) (Auto) 32 % Monocytes (%) (Auto) 6 % Eosinophils (%) (Auto) 3 % Basophils (%) (Auto) 1 % Neutrophils # (Auto) 5.3 x10^3/uL Lymphocytes # (Auto) 2.9 x10^3/uL Monocytes # (Auto) 0.5 x10^3/uL Eosinophils # (Auto) 0.3 x10^3/uL Basophils # (Auto) 0.1 x10^3/uL Prothrombin Time 13.0 SEC Prothromb Time International Ratio 1.0 Activated Partial Thromboplast Time 29 SEC Sodium Level 140 mmol/L Potassium Level 3.7 mmol/L Chloride Level 106 mmol/L Carbon Dioxide Level 27 mmol/L Anion Gap 7 Blood Urea Nitrogen 12 mg/dL Creatinine 1.0 mg/dL Estimated GFR (Cockcroft-Gault) 60.5 BUN/Creatinine Ratio 12 Glucose Level 105 mg/dL Calcium Level 8.3 mg/dL Total Bilirubin 0.5 mg/dL Aspartate Amino Transf (AST/SGOT) 23 U/L Alanine Aminotransferase (ALT/SGPT) 40 U/L Alkaline Phosphatase 104 U/L Total Protein 6.4 g/dL Albumin 3.3 g/dL Albumin/Globulin Ratio 1.1 Serum Test, Qualitative Negative Urine Collection Type Unknown Urine Color Red Urine Clarity Cloudy Urine pH 5.5 Urine Specific [place] >=1.030 Urine Protein 100 mg/dL Urine Glucose (UA) Negative mg/dL Urine Ketones (Stick) Trace mg/dL Urine Blood Large Urine Nitrite Negative Urine Bilirubin Moderate Urine Urobilinogen Dipstick 1.0 mg/dL Urine Leukocyte Esterase Small Urine RBC Tntc /HPF Urine WBC 11-20 /HPF Urine Squamous Epithelial Cells Mod /LPF Urine Amorphous Sediment Present /HPF Urine Bacteria Few /HPF Urine Mucus Marked /LPF Current Medications Medications (Trade) Dose Ordered Sig/Shon Route PRN Reason Start Time Stop Time Status Last Admin Dose Admin Morphine Sulfate (Morphine Sulfate) 4 mg 1X ONCE IV 11/20/19 00:15 11/20/19 00:16 DC 11/20/19 00:18 Ondansetron HCl (Zofran) 4 mg 1X ONCE IVP 11/20/19 00:15 11/20/19 00:16 DC 11/20/19 00:18 Ketorolac Tromethamine (Toradol 15mg Vial) 15 mg 1X ONCE IVP 11/20/19 01:15 11/20/19 01:16 DC 11/20/19 01:05 Ketorolac Tromethamine (Toradol 15mg Vial) 15 mg STK-MED ONCE .ROUTE 11/20/19 01:03 11/20/19 01:04 DC Vital Signs: Vital Signs Date Time Temp Pulse Resp B/P (MAP) Pulse Ox O2 Delivery O2 Flow Rate FiO2 11/20/19 00:18 18 99 Room Air 11/19/19 23:29 98.2 101 18 104/56 (72) 98 Room Air 98.2 Vital Signs Date Time Temp Pulse Resp B/P (MAP) Pulse Ox O2 Delivery O2 Flow Rate FiO2 11/19/19 23:29 98.2 101 18 104/56 (72) 98 Room Air 98.2 Vital Signs Date Time Temp Pulse Resp B/P (MAP) Pulse Ox O2 Delivery O2 Flow Rate FiO2 11/19/19 23:29 98.2 101 18 104/56 (72) 98 Room Air 98.2 EKG: EKG: [] Radiology/Procedures: Radiology/Procedures: [][facility] [address] [place] [address] IMAGING REPORT Signed PATIENT: DANY HOOVER ACCOUNT: [id number] : 1975 LOCATION: ER AGE: 44 SEX: F EXAM STATUS: REG ER ORD. PHYSICIAN: KALEIGH MAURICE MD REASON: vag bleed PROCEDURE: TRANSVAGINAL Pelvic ultrasound transvaginal: Reason for examination: Vaginal bleeding. Patient hasn't had a period for 4 years for unknown reason. Transvaginal ultrasound examination of the pelvis was performed. Patient had difficulty tolerating the exam. Uterus measures 8.2 x 5.3 x 4.7 cm in greatest dimension. Focal uterine mass is not seen. Endometrium is not abnormally thickened at 1 cm. There appears to be fluid in the left adnexa with possible 2 x 1.9 x 2 cm cystic lesion in the left adnexa. The right ovary was not visualized. IMPRESSION: Limited examination. 2.6 x 1.9 x 2 cm cystic appearing lesion in the left adnexa with a small amount of free fluid. Electronically signed by: Itzel Frost MD (11/20/2019 1:19 AM) [id number] DICTATED and SIGNED BY: ITZEL FROST MD DATE: 11/20/19 0119 Course & Med Decision Making: Course & Med Decision Making Pertinent Labs and Imaging studies reviewed. (See chart for details) [] 44-year-old female presents with vaginal bleeding for the first time in several years. Patient also complains of lower abdominal cramping. MIPS measure: checked and was negative. Ultrasound does show some fluid around the left ovary. Most likely patient had a neurologic ovarian cyst. No large cyst to indicate torsion patient still complains of pain on reassessment. Pain is improved. Patient's pain is better after morphine but got reaggravated by the vaginal ultrasound. Patient otherwise clinically stable for discharge outpatient follow-up Naima Disclaimer: Naima Disclaimer: This electronic medical record was generated, in whole or in part, using a voice recognition dictation system. Departure Departure Impression: Primary Impression: Vaginal bleeding Additional Impressions: Pelvic pain Left ovarian cyst Disposition: 01 HOME, SELF-CARE Condition: STABLE Referrals: NO PCP (PCP) TITUS HUANG Jr, MD 2-3 days Patient Instructions: Ovarian Cyst, Uterine Bleeding, Dysfunctional Additional Instructions: EMERGENCY DEPARTMENT GENERAL DISCHARGE INSTRUCTIONS Thank you for coming to [facility] Emergency Department (ED) today and trusting us with you care. We trust that you had a positivie experience in our Emergency Department. If you wish to speak to the department management, you may call the Director at [phone]. YOUR FOLLOW UP INSTRUCTIONS ARE FOLLOWS: 1. Do you have a private Doctor? If you do not have a private doctor, please ask for a resource list of physicians or clinics that may be able to assist you with follow up care. 2. The Emergency Physicain has interpreted your x-rays. The X-Ray specialist will also review them. If there is a change in the findings, you will be notified in 48 hours when at all possible. 3. A lab test or culture has been done, your results will be reviewed and you will be notified if you need a change in treatment. ADDITIONAL INSTRUCTIONS AND INFORMATION: 1. Your care today has been supervised by a physician who is specially trained in emergency care. Many problems require more than one evaluation for a complete diagnosis and treatment. We recommend that you schedule your follow up appointment as recommended to ensure complete treatment of you illness or injury. If you are unable to obtain follow up care and continue to have a problem, or if your consition worsens, we recommend that you return to the ED. 2. We are not able to safely determine your condition over the phone nor are we able to give sound medical advice over the phone. For these safety reasons, if you call for medical advice we will ask you to come to the ED for further evaluation. 3. If you have any questions regarding these discharge instructions please call the ED at [phone]. SAFETY INFORMATION: In the interest of safety, wellness, and injury prevention; we encourage you to wear your sealbelt, if you smoke; quite smoking, and we encourage family to use a protective helmet for bicycling and other sporting events that present an increased risk for head injury. IF YOUR SYMPTOMS WORSEN OR NEW SYMPTOMS DEVELOP, OR YOU HAVE CONCERNS ABOUT YOUR CONDITION; OR IF YOUR CONDITION WORSENS WHILE YOU ARE WAITING FOR YOUR FOLLOW UP APPOINTMENT; EITHER CONTACT YOUR PRIMARY CARE DOCTOR, THE PHYSICIAN WHOSE NAME AND NUMBER YOU WERE GIVEN, OR RETURN TO THE ED IMMEDIATELY. Scripts Ibuprofen (IBUPROFEN) 600 Mg Tablet 600 MG PO PRN Q6HRS PRN for PAIN, #20 TAB take with food or milk Prov: KALEIGH MAURICE MD 11/20/19 Hydrocodone/Apap 5-325 (NORCO 5-325 TABLET) 1 Each Tablet 1-2 EACH PO PRN Q6HRS PRN for PAIN, #15 as needed for pain Prov: KALEIGH MAURICE MD 11/20/19 Justicifation of Admission Dx: Justifications for Admission: Justification of Admission Dx: N/A KALEIGH MAURICE MD Nov 19, 2019 23:30
[2019-11-20 00:07] LABS: BASO # 0.1 x10^3/uL (0.0-0.2); BASO % 1 % (0-3); EOS # 0.3 x10^3/uL (0.0-0.7); EOS % 3 % (0-3); HEMATOCRIT 37.9 % (36.0-47.0); HEMOGLOBIN 13.2 g/dL (12.0-15.5); LYMPH # 2.9 x10^3/uL (1.0-4.8); LYMPH % 32 % (24-48); MEAN CORPUSCULAR HEMOGLOBIN 30 pg (25-35); MEAN CORPUSCULAR HGB CONC 35 g/dL (31-37); MEAN CORPUSCULAR VOLUME 87 fL (79-100); MONO # 0.5 x10^3/uL (0.0-1.1); MONO % 6 % (0-9); NEUT # 5.3 x10^3/uL (1.8-7.7); NEUT % 58 % (31-73); PLATELET COUNT 249 x10^3/uL (140-400); RED BLOOD COUNT 4.37 x10^6/uL (3.50-5.40); RED CELL DISTRIBUTION WIDTH 13.8 % (11.5-14.5); WHITE BLOOD COUNT 9.1 x10^3/uL (4.0-11.0)
[2019-11-20 00:13] LABS: CALCIUM 8.3 mg/dL (8.5-10.1); GFR 60.5; POTASSIUM 3.7 mmol/L (3.5-5.1)
[2019-11-20 00:14] LABS: PREG TEST PT QUAL NEGATIVE (NEG)
[2019-11-20] MEDS ORDERED: ONDANSETRON PF 4 MG/2 ML VIAL. IVP ONE (00:15)
[2019-11-20] MEDS ORDERED: MORPHINE SULFATE 4 MG/ML VIAL. IV ONE (00:15)
[2019-11-20 00:18] LABS: ALBUMIN 3.3 g/dL (3.4-5.0); ALBUMIN/GLOBULIN RATIO 1.1 (1.0-1.7); TOTAL BILIRUBIN 0.5 mg/dL (0.2-1.0); TOTAL PROTEIN 6.4 g/dL (6.4-8.2)
[2019-11-20] MEDS ORDERED: KETOROLAC 15 MG/ML VIAL. ONE (01:03)
[2019-11-20] MEDS ORDERED: KETOROLAC 15 MG/ML VIAL. IVP ONE (01:15)
[2019-11-20 01:21] LABS: BILIRUBIN,URINE MODERATE (NEG); CLARITY,URINE CLOUDY; COLOR,URINE RED; NITRITE,URINE NEGATIVE (NEG); PH,URINE 5.5 (<5.0-8.0); PROTEIN,URINE 100 mg/dL (NEG-TRACE)
--- NOTE | 2019-11-20 01:22 | RAD ---
Pelvic ultrasound transvaginal: Reason for examination: Vaginal bleeding. Patient hasn't had a period for 4 years for unknown reason. Transvaginal ultrasound examination of the pelvis was performed. Patient had difficulty tolerating the exam. Uterus measures 8.2 x 5.3 x 4.7 cm in greatest dimension. Focal uterine mass is not seen. Endometrium is not abnormally thickened at 1 cm. There appears to be fluid in the left adnexa with possible 2 x 1.9 x 2 cm cystic lesion in the left adnexa. The right ovary was not visualized. IMPRESSION: Limited examination. 2.6 x 1.9 x 2 cm cystic appearing lesion in the left adnexa with a small amount of free fluid. Electronically signed by: Itzel Hays MD (11/20/2019 1:19 AM) [id number]
[2019-11-20 01:29] LABS: RBC,URINE TNTC /HPF (0-2)
[2019-11-20 01:30] LABS: AMORPHOUS SEDIMENT,UR PRESENT /HPF; BACTERIA,URINE FEW /HPF (0-FEW); SQUAMOUS EPITHELIAL CELL,UR MOD /LPF
[2019-11-20] MEDS ORDERED: IBUP-1007 PO (01:37)
[2019-11-20] MEDS ORDERED: HYDR-3164 PO (01:37)
[2019-11-20] MEDS ORDERED: HYDROcodone/APAP 7.5/325MG 1 TAB TABLET PO ONE (01:45)
[2019-11-20 01:49] VITALS: BP 103/56
[2019-11-22 00:08] LABS: GC PROBE Negative (Negative)
[2019-12-17] MEDS ORDERED: PROM12.58 PO (11:48)
[2019-12-17] MEDS ORDERED: AMOX500C PO (11:48)
[2019-12-17] MEDS ORDERED: OXYC1TAB15 PO (11:48)
== END 2019-11-20 01:59 | disposition home or self-care (01) ==
LOC: ER 23:19
DX: N93.9 Abnormal uterine and vaginal bleeding, unspecified (principal); N83.202 Unspecified ovarian cyst, left side; R10.2 Pelvic and perineal pain; F17.200 Nicotine dependence, unspecified, uncomplicated; Z87.442 Personal history of urinary calculi; Z90.89 Acquired absence of other organs; Z98.51 Tubal ligation status; Z98.890 Other specified postprocedural states; Z88.0 Allergy status to penicillin
CPT/HCPCS: 36415; 76830; 80053; 81001; 81025; 84703; 85025; 85610; 85730; 87086; 87491; 87591; 96374; 96375; 99284; J1885; J2270; J2405; Q0111

== ENCOUNTER 2019-12-15 08:38 | Inpatient (IN) | payer SELFPAY ==
[~2019-12-15] VITALS: Ht 162.6 cm; Wt 72.0 kg
[~2019-12-15 08:38] MED LIST changes: +IBUP-1007 PO
[2019-12-15] MEDS ORDERED: IV NORMAL SALINE 1000ML BAG 1,000 ML IV SCH (09:43)
[2019-12-15 09:59] LABS: BASO # 0.1 x10^3/uL (0.0-0.2); BASO % 1 % (0-3); EOS # 0.2 x10^3/uL (0.0-0.7); EOS % 3 % (0-3); HEMATOCRIT 41.1 % (36.0-47.0); LYMPH % 24 % (24-48); MEAN CORPUSCULAR HEMOGLOBIN 29 pg (25-35); MEAN CORPUSCULAR HGB CONC 34 g/dL (31-37); MEAN CORPUSCULAR VOLUME 86 fL (79-100); MONO # 0.5 x10^3/uL (0.0-1.1); MONO % 6 % (0-9); NEUT # 5.4 x10^3/uL (1.8-7.7); NEUT % 67 % (31-73); PLATELET COUNT 235 x10^3/uL (140-400); RED BLOOD COUNT 4.78 x10^6/uL (3.50-5.40); RED CELL DISTRIBUTION WIDTH 13.8 % (11.5-14.5); WHITE BLOOD COUNT 8.2 x10^3/uL (4.0-11.0)
--- NOTE | 2019-12-15 10:05 | PHYS DOC ---
Past Medical History Past Medical History: Liver Disease, Ovarian Cyst, P.U.D. Additional Past Medical Histor: PT REPORTS LIVER IS ABNORMAL Past Surgical History: Tubal ligation Additional Past Surgical Histo: D+C, FINGER SURGERY Smoking Status: Current Every Day Smoker Additional Information: 04/28 PPD Alcohol Use: None Drug Use: None General Adult EDM: Chief Complaint: ABDOMINAL PAIN HPI: HPI: 44-year-old female past medical history significant for peptic ulcer disease, liver disorder and panic attacks, presents to the ED with worsening progressive abdominal swelling and pain for the past month with associated nausea, relieved with lying on her left side. Patient states she was told by [facility] and [facility] that she had liver issues but has not seen a specialist due to lack of finances/insurance. Reports associated fever, chills and nausea. States she was able to eat a [employer] sandwich yesterday. Had " a little diarrhea today," but states she only has bowel movements 3-4 times a month. Is not on any narcotic pain medication. Reports former IV drug use 10 years ago. No known history of hepatitis or alcohol abuse. LMP was 4 years ago-states she was seen in the emergency department 3 weeks ago for ovarian cyst. Review of systems:Denies associated cough, sore throat, dyspnea, chest pain, melena, hematochezia, hematemesis, hemoptysis, leg swelling, rash, anuria, dysuria, hematuria, flank pain Review of Systems: Review of Systems: Constitutional: Denies fever or chills. [] Eyes: Denies change in visual acuity. [] HENT: Denies nasal congestion or sore throat. [] Respiratory: Denies cough or shortness of breath. [] Cardiovascular: Denies chest pain or edema. [] GI: Denies abdominal pain, nausea, vomiting, bloody stools or diarrhea. [] : Denies dysuria. [] Musculoskeletal: Denies back pain or joint pain. [] Integument: Denies rash. [] Neurologic: Denies headache, focal weakness or sensory changes. [] Endocrine: Denies polyuria or polydipsia. [] Lymphatic: Denies swollen glands. [] Psychiatric: Denies depression or anxiety. [] Heart Score: Risk Factors: Risk Factors: DM, Current or recent (<one month) smoker, HTN, HLP, family history of CAD, obesity. Risk Scores: Score 0 - 3: 2.5% MACE over next 6 weeks - Discharge Home Score 4 - 6: 20.3% MACE over next 6 weeks - Admit for Clinical Observation Score 7 - 10: 72.7% MACE over next 6 weeks - Early Invasive Strategies Current Medications: Current Medications Medications (Trade) Dose Ordered Sig/Shon Start Time Stop Time Status Last Admin Dose Admin Sodium Chloride 1,000 ml @ 1,000 mls/hr Q1H 12/15/19 09:43 12/15/19 10:42 Allergies: Allergies: Allergies Coded Allergies Type Severity Reaction Last Updated Verified Penicillins Allergy Severe hives 08/13/13 Yes Physical Exam: PE: Constitutional: Well developed, well nourished, no acute distress, non-toxic appearance. [] HENT: Normocephalic, atraumatic, bilateral external ears normal, oropharynx moist, no oral exudates, nose normal. [] Eyes: EOMI, conjunctiva normal, no discharge. [] Neck: Normal range of motion, no tenderness, supple, no stridor. [] Cardiovascular:Heart rate regular rhythm, no murmur [] Lungs & Thorax: Bilateral breath sounds clear to auscultation [] Abdomen: slightly distended abdomen, +RUQ pain/murphys sign, Bowel sounds normal, soft, no tenderness, no masses, no pulsatile masses. [] Skin: Warm, dry, no erythema, no rash. [] Back: No tenderness, no CVA tenderness. [] Extremities: No tenderness, no cyanosis, no clubbing, ROM intact, no edema. [] Neurologic: Alert and oriented X 3, normal motor function, normal sensory function, no focal deficits noted. [] Psychologic: Affect normal, judgement normal, mood normal. [] Current Patient Data: Labs: Laboratory Tests Test 12/15/19 09:45 White Blood Count 8.2 x10^3/uL (4.0-11.0) Red Blood Count 4.78 x10^6/uL (3.50-5.40) Hemoglobin 14.0 g/dL (12.0-15.5) Hematocrit 41.1 % (36.0-47.0) Mean Corpuscular Volume 86 fL (79-100) Mean Corpuscular Hemoglobin 29 pg (25-35) Mean Corpuscular Hemoglobin Concent 34 g/dL (31-37) Red Cell Distribution Width 13.8 % (11.5-14.5) Platelet Count 235 x10^3/uL (140-400) Neutrophils (%) (Auto) 67 % (31-73) Lymphocytes (%) (Auto) 24 % (24-48) Monocytes (%) (Auto) 6 % (0-9) Eosinophils (%) (Auto) 3 % (0-3) Basophils (%) (Auto) 1 % (0-3) Neutrophils # (Auto) 5.4 x10^3/uL (1.8-7.7) Lymphocytes # (Auto) 2.0 x10^3/uL (1.0-4.8) Monocytes # (Auto) 0.5 x10^3/uL (0.0-1.1) Eosinophils # (Auto) 0.2 x10^3/uL (0.0-0.7) Basophils # (Auto) 0.1 x10^3/uL (0.0-0.2) Laboratory Tests 12/15/19 09:45 Vital Signs: Vital Signs Date Time Temp Pulse Resp B/P (MAP) Pulse Ox O2 Delivery O2 Flow Rate FiO2 12/15/19 09:25 98.2 100 20 142/81 (101) 99 Room Air 98.2 EKG: EKG: Normal sinus rhythm at 90 bpm, no axis deviation, normal intervals, T wave inversions lead III, no ST elevations or ST depressions Radiology/Procedures: Radiology/Procedures: IMAGING REPORT Signed PATIENT: DANY HOOVER ACCOUNT: [id number] : 1975 LOCATION: ER AGE: 44 SEX: F EXAM STATUS: REG ER ORD. PHYSICIAN: DUDLEY GARCIA DO REASON: diffufse abdominal pain PROCEDURE: CT ABD PELV W/ORAL&IV CONTRAST EXAM: CT ABDOMEN/PELVIS WITH CONTRAST. HISTORY: Abdominal pain. TECHNIQUE: Computed tomography of the abdomen and pelvis was performed after the intravenous administration of iodinated contrast. One or more of the following individualized dose reduction techniques were utilized for this examination: 1. Automated exposure control. 2. Adjustment of the mA and/or kV according to patient size. 3. Use of iterative reconstruction technique. COMPARISON: 08/03/2018. FINDINGS: Lung windows through the visualized portions of the bases reveal mild atelectasis. Bone windows reveal no suspicious lesions. 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 There are radiolucent gallstones and mild gallbladder wall thickening. The gallbladder does not appear distended. There is no pericholecystic inflammation. The common duct measures 8 mm proximally without a clear cause for distal obstruction. The pancreatic duct is not dilated. The liver, pancreas, spleen, adrenal glands and kidneys are unremarkable. There are no pathologically enlarged lymph nodes. Changes of bilateral tubal ligation are noted. The appendix is surgically absent. There is no small bowel obstruction. IMPRESSION: 1. Cholelithiasis with gallbladder wall thickening. Sonography could further assess for acute cholecystitis if there is persistent concern. 2. Mild extrahepatic biliary dilatation. Correlate for cholestasis to assess significance. Electronically signed by: Jean Claude Madrid MD (12/15/2019 12:04 PM) [id number] DICTATED and SIGNED BY: SANTOSH MADRID MD DATE: 12/15/19 1204 IMAGING REPORT Signed PATIENT: DANY HOOVER ACCOUNT: [id number] : 1975 LOCATION: ER AGE: 44 SEX: F EXAM STATUS: REG ER ORD. PHYSICIAN: DUDLEY GARCIA DO REASON: ruq pain, gb wall thickening PROCEDURE: ABDOMEN COMPLETE EXAM: ABDOMINAL ULTRASOUND. HISTORY: Right upper quadrant pain, gallbladder wall thickening. COMPARISON: Today's CT. FINDINGS: Sonographic evaluation of the abdomen was performed. Diffuse hepatic steatosis is suspected. There are no focal lesions. The spleen measures 12.2 cm. The gallbladder is packed with stones. The gallbladder wall is thickened at 5.5 mm. There is no pericholecystic fluid. The seafood technology specialist notes tenderness over the gallbladder on scanning. The common duct is dilated at 8 mm proximally. No choledocholithiasis or cause for distal obstruction is appreciated. The pancreas is obscured currently. It is unremarkable on today's CT. The right kidney measures 10.6 cm. Cortical thickness and echogenicity are preserved. There is no hydronephrosis. The left kidney measures 10.2 cm. Cortical thickness and echogenicity are preserved. There is no hydronephrosis. The visualized portions of the abdominal aorta and inferior vena cava are grossly patent and normal in caliber. IMPRESSION: 1. Cholelithiasis and gallbladder wall thickening with a positive Velarde sign. The gallbladder is not distended. Correlate with other data to assess for acute cholecystitis. 2. Mild intrahepatic biliary dilatation. No clear choledocholithiasis is appreciable. Correlate for cholestasis to assess significance. MRCP could further evaluate if there is persistent concern. 3. Diffuse hepatic steatosis. Electronically signed by: Jean Claude Madrid MD (12/15/2019 3:09 PM) [id number] Course & Med Decision Making: Course & Med Decision Making Pertinent Labs and Imaging studies reviewed. (See chart for details) Concern for persistent, chronic abdominal pain, imaging consistent with acute cholecysitis. Labs with no leukocytosis, afebrile, troponin negative, sirs not met. Patient is hemodynamically stable. CT abd/pelvis w/contrast showsholelithiasis with gallbladder wall thickening and mild extrahepatic biliary dilatation. US w/gallbladder wall thickening, gall stones, no pericholec ystic fluid. Started on abx. Will admit to hospitalist. D/w surgery, Dr. Seay. Naiam Disclaimer: Naima Disclaimer: This electronic medical record was generated, in whole or in part, using a voice recognition dictation system. Departure Departure Impression: Primary Impression: Acute cholecystitis Disposition: ADMITTED INPATIENT Admitting Physician: KHOI (Dr. Prather) Condition: STABLE Referrals: NO PCP (PCP) Justicifation of Admission Dx: Justifications for Admission: Justification of Admission Dx: Yes Comments: surgical abdomen DUDLEY GARCIA DO Dec 15, 2019 10:04
[2019-12-15 10:07] LABS: CALCIUM 8.3 mg/dL (8.5-10.1); GFR 60.5; POTASSIUM 3.8 mmol/L (3.5-5.1)
[2019-12-15 10:13] LABS: ALBUMIN 3.4 g/dL (3.4-5.0); DIRECT BILIRUBIN 0.1 mg/dL (0.0-0.2); TOTAL BILIRUBIN 0.3 mg/dL (0.2-1.0); TOTAL PROTEIN 6.8 g/dL (6.4-8.2)
[2019-12-15] MEDS ORDERED: HYDROmorphone 2 MG/ML VIAL IVP ONE (10:15)
[2019-12-15] MEDS ORDERED: IV NORMAL SALINE 1000ML BAG 1,000 ML IV ONE (10:15)
[2019-12-15] MEDS ORDERED: ONDANSETRON PF 4 MG/2 ML VIAL. IVP ONE (10:15)
[2019-12-15] MEDS ORDERED: IOHEXOL 300 MG/ML 100ML VIAL. IV ONE (10:30)
[2019-12-15] MEDS ORDERED: IOHEXOL 240 MG/ML 50ML VIAL. PO ONE (10:30)
[2019-12-15] MEDS ORDERED: CONTRAST GIVEN. MC PRN (10:30)
[2019-12-15] MEDS ORDERED: METOCLOPRAMIDE HCL 10 MG/2 ML VIAL. IVP ONE (10:45)
--- NOTE | 2019-12-15 12:07 | RAD ---
EXAM: CT ABDOMEN/PELVIS WITH CONTRAST. HISTORY: Abdominal pain. TECHNIQUE: Computed tomography of the abdomen and pelvis was performed after the intravenous administration of iodinated contrast. One or more of the following individualized dose reduction techniques were utilized for this examination: 1. Automated exposure control. 2. Adjustment of the mA and/or kV according to patient size. 3. Use of iterative reconstruction technique. COMPARISON: 08/03/2018. FINDINGS: Lung windows through the visualized portions of the bases reveal mild atelectasis. Bone windows reveal no suspicious lesions. 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 There are radiolucent gallstones and mild gallbladder wall thickening. The gallbladder does not appear distended. There is no pericholecystic inflammation. The common duct measures 8 mm proximally without a clear cause for distal obstruction. The pancreatic duct is not dilated. The liver, pancreas, spleen, adrenal glands and kidneys are unremarkable. There are no pathologically enlarged lymph nodes. Changes of bilateral tubal ligation are noted. The appendix is surgically absent. There is no small bowel obstruction. IMPRESSION: 1. Cholelithiasis with gallbladder wall thickening. Sonography could further assess for acute cholecystitis if there is persistent concern. 2. Mild extrahepatic biliary dilatation. Correlate for cholestasis to assess significance. Electronically signed by: Jean Claude Madrid MD (12/15/2019 12:04 PM) [id number]
--- NOTE | 2019-12-15 12:22 | EKG ---
[facility] [address] [place] [address] Test Date: 2019-12-15 Test Time: 09:38:24 Pat Name: DANY HOOVER Department: Room: Gender: F Center Medical Director: : 1975 Requested By: DUDLEY GARCIA Order Number: [id number] Reading MD: Measurements Intervals [place] Rate: 90 P: 64 [place]: 144 QRS: 63 QRSD: 82 T: 2 QT: 358 QTc: 442 Interpretive Statements SINUS RHYTHM ATRIAL PREMATURE COMPLEX(ES) OTHERWISE NORMAL ECG RI6.02 No previous ECG available for comparison
--- NOTE | 2019-12-15 15:12 | RAD ---
EXAM: ABDOMINAL ULTRASOUND. HISTORY: Right upper quadrant pain, gallbladder wall thickening. COMPARISON: Today's CT. FINDINGS: Sonographic evaluation of the abdomen was performed. Diffuse hepatic steatosis is suspected. There are no focal lesions. The spleen measures 12.2 cm. The gallbladder is packed with stones. The gallbladder wall is thickened at 5.5 mm. There is no pericholecystic fluid. The financial services technician notes tenderness over the gallbladder on scanning. The common duct is dilated at 8 mm proximally. No choledocholithiasis or cause for distal obstruction is appreciated. The pancreas is obscured currently. It is unremarkable on today's CT. The right kidney measures 10.6 cm. Cortical thickness and echogenicity are preserved. There is no hydronephrosis. The left kidney measures 10.2 cm. Cortical thickness and echogenicity are preserved. There is no hydronephrosis. The visualized portions of the abdominal aorta and inferior vena cava are grossly patent and normal in caliber. IMPRESSION: 1. Cholelithiasis and gallbladder wall thickening with a positive Velarde sign. The gallbladder is not distended. Correlate with other data to assess for acute cholecystitis. 2. Mild intrahepatic biliary dilatation. No clear choledocholithiasis is appreciable. Correlate for cholestasis to assess significance. MRCP could further evaluate if there is persistent concern. 3. Diffuse hepatic steatosis. Electronically signed by: Jean Claude Madrid MD (12/15/2019 3:09 PM) [id number]
--- NOTE | 2019-12-15 16:15 | PDOC1 ---
History and Physical Date of Admission Date of Admission DATE: 12/15/19 TIME: 16:14 Identification/Chief Complaint Chief Complaint Abdominal pain Source Source: Patient History of Present Illness History of Present Illness Ms Hoff is a 44-year-old female with past medical history significant for peptic ulcer disease, ovarian cyst, fatty liver, substance use disorder in sustained remission (former IVDA), and panic attacks, presents to the ED with worsening progressive abdominal swelling and pain for the past 6 months with associated nausea, relieved with lying on her left side. She is seeking medical care again because it has become unbearable over the past month and she is not able to eat any food or liquid with a feeling of early satieaty and for the past 4 days has vomited after most her meals, but states she was able to eat a sandwich from [employer] on 12/14/2019 and held it down. Has been having loose bowels for the past 4 days, but normally notes a bowel movement every 3 days is normal for her. Patient states she was told by [facility] and [facility] that she had liver issues as she has been evaluated at both hospitals recently for similar complaints. LMP was 4 years ago-states she was seen in our emergency department 3 weeks ago for ovarian cyst. Denies associated cough, sore throat, dyspnea, chest pain, melena, hematochezia, hematemesis, hemoptysis, leg swelling, rash, anuria, dysuria, hematuria, flank pain EKG NSR at 90bpm with TWI in lead III, otherwise no abnormal ST segments CT abdoment pelvis concerning for cholecystitis and RUQ US with positive sonographic [place] sign Labs with WBC 8.2, Hb 14, Platelets 235, Na 141, K 3.8, BUN 16, Cr 1, Glucose 97. Alk phose 120, bili WNL, lipase WNL, AST and ALT WNL. Admitted for further treatment. Past Medical History GI: GERD Psych: Anxiety, Addictions Past Surgical History Past Surgical History: Tubal Ligation, Other (D+C, FINGER SURGERY) Family History Family History: Hypertension Social History Smoke: <1 pack per day ALCOHOL: none Drugs: Marijuana Current Medications Current Medications Current Medications Sodium Chloride 1,000 ml @ 1,000 mls/hr Q1H IV Last administered on 12/15/19at 10:04; Start 12/15/19 at 09:43; Stop 12/15/19 at 10:42; Status DC Hydromorphone HCl (Dilaudid) 1 mg 1X ONCE IVP Last administered on 12/15/19at 10:07; Start 12/15/19 at 10:15; Stop 12/15/19 at 10:16; Status DC Sodium Chloride 1,000 ml @ 1,000 mls/hr 1X ONCE IV Last administered on 12/15/19at 10:05; Start 12/15/19 at 10:15; Stop 12/15/19 at 11:14; Status DC Ondansetron HCl (Zofran) 4 mg 1X ONCE IVP Last administered on 12/15/19at 10:07; Start 12/15/19 at 10:15; Stop 12/15/19 at 10:16; Status DC Iohexol (Omnipaque 240 Mg/ml) 30 ml 1X ONCE PO Last administered on 12/15/19at 10:30; Start 12/15/19 at 10:30; Stop 12/15/19 at 10:31; Status DC Iohexol (Omnipaque 300 Mg/ml) 75 ml 1X ONCE IV Last administered on 12/15/19at 10:30; Start 12/15/19 at 10:30; Stop 12/15/19 at 10:31; Status DC Info (CONTRAST GIVEN -- Rx MONITORING) 1 each PRN DAILY PRN MC SEE COMMENTS; Start 12/15/19 at 10:30; Stop 12/17/19 at 10:29 Metoclopramide HCl (Reglan Vial) 10 mg 1X ONCE IVP Last administered on 12/15/19at 10:50; Start 12/15/19 at 10:45; Stop 12/15/19 at 10:46; Status DC Active Scripts Active Ibuprofen 600 Mg Tablet 600 Mg PO PRN Q6HRS PRN take with food or milk [place] 5-325 Tablet (Acetaminophen/Hydrocodone Bitart) 1 Each Tablet 1-2 Each PO PRN Q6HRS PRN as needed for pain Cyclobenzaprine Hcl 5 Mg Tablet 1 Tab PO TID PRN Clindamycin Hcl 300 Mg Capsule 1 Cap PO TID Medrol (Methylprednisolone) 4 Mg Tab.ds.pk 1 Pkg PO UD Diclofenac Sodium 50 Mg Tablet.dr 1 Tab PO BID Cyclobenzaprine Hcl 10 Mg Tablet 1 Tab PO TID Doxycycline Hyclate 100 Mg Capsule 1 Cap PO BID Proair Hfa (Albuterol Sulfate) 8.5 Gm Hfa.aer.ad 1 Puff INH PRN Q6HRS PRN Prednisone 20 Mg Tablet 2 Tab PO DAILY Start this prescription tomorrow, Thursday08/23/18 Silvadene (Silver Sulfadiazine) 20 Gm Cream..g. 1 [place] TP BID 7 Days Apply to burn Ondansetron Odt (Ondansetron) 4 Mg Tab.rapdis 1 Tab PO PRN Q6-8HRS PRN [place] 5-325 Tablet (Acetaminophen/Hydrocodone Bitart) 1 Each Tablet 1 Tab PO PRN Q6HRS PRN Ondansetron Odt (Ondansetron) 4 Mg Tab.rapdis 1 Tab PO PRN Q6-8HRS PRN [place] 5-325 Tablet (Acetaminophen/Hydrocodone Bitart) 1 Each Tablet 1 Tab PO PRN Q6HRS PRN Flomax (Tamsulosin Hcl) 0.4 Mg Cap.er.24h 1 Cap PO DAILY 7 Days Bactrim Ds Tablet (Sulfamethoxazole/Trimethoprim) 1 Each Tablet 1 Tab PO BID Gyyvzere-Nfqqsiulc-Gq Ear Susp (Neomycin/Polymyxin B Sulf/Hc) 10 Ml Drops.susp 4 Drop EACH EAR QID [address] Eye Drops (Tobramycin/Dexamethasone) 5 Ml Drops.susp 1 Drop QID left eye Tylenol With Codeine #3 Tablet (Acetaminophen/Codeine Phosphate) 1 Each Tablet 1 Tab PO PRN Q6HRS PRN Tramadol-Acetaminophn 37.5-325 (Tramadol Hcl/Acetaminophen) 1 Each Tablet 1 Tab PO Q4-6HRS Allergies Allergies: Coded Allergies: Penicillins (Verified Allergy, Severe, hives, 08/13/13) ROS General: YES: Fatigue, Malaise, Appetite; No: Chills, Night Sweats, Other PSYCHOLOGICAL ROS: YES: Anxiety; No: Behavioral Disorder, Concentration difficultie, Decreased libido, Depression, Disorientation, Hallucinations, Hostility, Irritablity, Memory difficulties, Mood Swings, Obsessive thoughts, Physical abuse, Sexual abuse, Sleep disturbances, Suicidal ideation, Other Eyes: No Blurry vision, No Decreased vision, No Double vision, No Dry eyes, No Excessive tearing, No Eye Pain, No Itchy Eyes, No Loss of vision, No Photophobia, No Scotomata, No Uses contacts, No Uses glasses, No Other HEENT: No: Heacaches, Visual Changes, Hearing change, Nasal congestion, Nasal discharge, Oral lesions, Sinus pain, Sore Throat, Epistaxis, Sneezing, Snoring, Tinnitus, Vertigo, Vocal changes, Other ALLERGY AND IMMUNOLOGY: No: Hives, Insect Bite Sensitivity, Itchy/Watery Eyes, Nasal Congestion, Post Nasal Drip, Seasonal Allergies, Other Hematological and Lymphatic: No: Bleeding Problems, Blood Clots, Blood Transfusions, Brusing, Night Sweats, Pallor, Swollen Lymph Nodes, Other ENDOCRINE: No: Breast Changes, Galactorrhea, Hair Pattern Changes, Hot Flashes, Malaise/lethargy, Mood Swings, Palpitations, Polydipsia/polyuria, Skin Changes, Temperature Intolerance, Unexpected Weight Changes, Other Breast: No New/Changing Breast Lumps, No Nipple changes, No Nipple discharge, No Other Respiratory: YES: Shortness of breath, SOB with excertion; No: Cough, Hemoptysis, Orthopnea, Pleuritic Pain, Sputum Changes, Stridor, Tachypnea, Wheezing, Other Cardiovascular: No Chest Pain, No Palpitations, No Orthopnea, No Paroxysmal Noc. Dyspnea, No Edema, No Lt Headedness, No Other Gastrointestinal: Yes Nausea, Yes Vomiting, Yes Abdominal Pain, Yes Diarrhea; No Constipation, No Melena, No Hematochezia, No Other Genitourinary: No Dysuria, No Frequency, No Incontinence, No Hematuria, No Retention, No Discharge, No Urgency, No Pain, No Flank Pain, No Other, No , No , No , No , No , No , No Musculoskeletal: No Gait Disturbance, No Joint Pain, No Joint Stiffness, No Joint Swelling, No Muscle Pain, No Muscular Weakness, No Pain In:, No Swelling In:, No Other Neurological: No Behavorial Changes, No Bowel/Bladder ControlChng, No Confusion, No Dizziness, No Gait Disturbance, No Headaches, No Impaired Coord/balance, No Memory Loss, No Numbness/Tingling, No Seizures, No Speech Problems, No Tremors, No Visual Changes, No Weakness, No Other Skin: No Dry Skin, No Eczema, No Hair Changes, No Lumps, No Mole Changes, No Mottling, No Nail Changes, No Pruritus, No Rash, No Skin Lesion Changes, No Other, No Acne Physical Exam General: Alert, Oriented X3, Cooperative, moderate distress HEENT: Atraumatic, PERRLA, EOMI, Mucous membr. moist/pink Lungs: Clear to auscultation, Normal air movement Heart: S1S2, RRR, no thrills, no rubs, no gallops, no murmurs Abdomen: Normal bowel sounds, Soft, No hepatosplenomegaly, No masses, Other (RUQ tender, positive velarde sign) Rectal Exam: not examined Extremities: No clubbing, No cyanosis, No edema, Normal pulses, No tenderness/swelling Skin: No rashes, No breakdown, No significant lesion Neuro: Normal gait, Normal speech, Strength at 5/5 X4 ext, Normal tone, Sensation intact, Cranial nerves 3-12 NL, Reflexes 2+ Psych/Mental Status: Mental status NL, Mood NL Vitals Vitals Vital Signs Date Time Temp Pulse Resp B/P (MAP) Pulse Ox O2 Delivery O2 Flow Rate FiO2 12/15/19 13:55 84 18 114/76 (89) 95 Room Air 12/15/19 09:25 98.2 98.2 Labs Labs Laboratory Tests Test 12/15/19 09:45 12/15/19 11:32 White Blood Count 8.2 x10^3/uL (4.0-11.0) Red Blood Count 4.78 x10^6/uL (3.50-5.40) Hemoglobin 14.0 g/dL (12.0-15.5) Hematocrit 41.1 % (36.0-47.0) Mean Corpuscular Volume 86 fL (79-100) Mean Corpuscular Hemoglobin 29 pg (25-35) Mean Corpuscular Hemoglobin Concent 34 g/dL (31-37) Red Cell Distribution Width 13.8 % (11.5-14.5) Platelet Count 235 x10^3/uL (140-400) Neutrophils (%) (Auto) 67 % (31-73) Lymphocytes (%) (Auto) 24 % (24-48) Monocytes (%) (Auto) 6 % (0-9) Eosinophils (%) (Auto) 3 % (0-3) Basophils (%) (Auto) 1 % (0-3) Neutrophils # (Auto) 5.4 x10^3/uL (1.8-7.7) Lymphocytes # (Auto) 2.0 x10^3/uL (1.0-4.8) Monocytes # (Auto) 0.5 x10^3/uL (0.0-1.1) Eosinophils # (Auto) 0.2 x10^3/uL (0.0-0.7) Basophils # (Auto) 0.1 x10^3/uL (0.0-0.2) Sodium Level 141 mmol/L (136-145) Potassium Level 3.8 mmol/L (3.5-5.1) Chloride Level 104 mmol/L (98-107) Carbon Dioxide Level 27 mmol/L (21-32) Anion Gap 10 (6-14) Blood Urea Nitrogen 16 mg/dL (7-20) Creatinine 1.0 mg/dL (0.6-1.0) Estimated GFR (Cockcroft-Gault) 60.5 Glucose Level 97 mg/dL (70-99) Calcium Level 8.3 mg/dL (8.5-10.1) Total Bilirubin 0.3 mg/dL (0.2-1.0) Direct Bilirubin 0.1 mg/dL (0.0-0.2) Aspartate Amino Transf (AST/SGOT) 18 U/L (15-37) Alanine Aminotransferase (ALT/SGPT) 30 U/L (14-59) Alkaline Phosphatase 120 U/L (46-116) Creatine Kinase 130 U/L (26-192) Troponin I Quantitative < 0.017 ng/mL (0.000-0.055) Total Protein 6.8 g/dL (6.4-8.2) Albumin 3.4 g/dL (3.4-5.0) Lipase 96 U/L (73-393) Bedside Urine HCG, Qualitative Hcg negative (Negative) Laboratory Tests Test 12/15/19 09:45 12/15/19 11:32 White Blood Count 8.2 x10^3/uL (4.0-11.0) Red Blood Count 4.78 x10^6/uL (3.50-5.40) Hemoglobin 14.0 g/dL (12.0-15.5) Hematocrit 41.1 % (36.0-47.0) Mean Corpuscular Volume 86 fL (79-100) Mean Corpuscular Hemoglobin 29 pg (25-35) Mean Corpuscular Hemoglobin Concent 34 g/dL (31-37) Red Cell Distribution Width 13.8 % (11.5-14.5) Platelet Count 235 x10^3/uL (140-400) Neutrophils (%) (Auto) 67 % (31-73) Lymphocytes (%) (Auto) 24 % (24-48) Monocytes (%) (Auto) 6 % (0-9) Eosinophils (%) (Auto) 3 % (0-3) Basophils (%) (Auto) 1 % (0-3) Neutrophils # (Auto) 5.4 x10^3/uL (1.8-7.7) Lymphocytes # (Auto) 2.0 x10^3/uL (1.0-4.8) Monocytes # (Auto) 0.5 x10^3/uL (0.0-1.1) Eosinophils # (Auto) 0.2 x10^3/uL (0.0-0.7) Basophils # (Auto) 0.1 x10^3/uL (0.0-0.2) Sodium Level 141 mmol/L (136-145) Potassium Level 3.8 mmol/L (3.5-5.1) Chloride Level 104 mmol/L (98-107) Carbon Dioxide Level 27 mmol/L (21-32) Anion Gap 10 (6-14) Blood Urea Nitrogen 16 mg/dL (7-20) Creatinine 1.0 mg/dL (0.6-1.0) Estimated GFR (Cockcroft-Gault) 60.5 Glucose Level 97 mg/dL (70-99) Calcium Level 8.3 mg/dL (8.5-10.1) Total Bilirubin 0.3 mg/dL (0.2-1.0) Direct Bilirubin 0.1 mg/dL (0.0-0.2) Aspartate Amino Transf (AST/SGOT) 18 U/L (15-37) Alanine Aminotransferase (ALT/SGPT) 30 U/L (14-59) Alkaline Phosphatase 120 U/L (46-116) Creatine Kinase 130 U/L (26-192) Troponin I Quantitative < 0.017 ng/mL (0.000-0.055) Total Protein 6.8 g/dL (6.4-8.2) Albumin 3.4 g/dL (3.4-5.0) Lipase 96 U/L (73-393) Bedside Urine HCG, Qualitative Hcg negative (Negative) Images Images RUQ US: Diffuse hepatic steatosis is suspected. There are no focal lesions. The spleen measures 12.2 cm. The gallbladder is packed with stones. The gallbladder wall is thickened at 5.5 mm. There is no pericholecystic fluid. The animal doctor notes tenderness over the gallbladder on scanning. The common duct is dilated at 8 mm proximally. No choledocholithiasis or cause for distal obstruction is appreciated. The pancreas is obscured currently. It is unremarkable on today's CT. The right kidney measures 10.6 cm. Cortical thickness and echogenicity are preserved. There is no hydronephrosis. The left kidney measures 10.2 cm. Cortical thickness and echogenicity are preserved. There is no hydronephrosis. The visualized portions of the abdominal aorta and inferior vena cava are g rossly patent and normal in caliber. IMPRESSION: 1. Cholelithiasis and gallbladder wall thickening with a positive Velarde sign. The gallbladder is not distended. Correlate with other data to assess for acute cholecystitis. 2. Mild intrahepatic biliary dilatation. No clear choledocholithiasis is appreciable. Correlate for cholestasis to assess significance. MRCP could further evaluate if there is persistent concern. 3. Diffuse hepatic steatosis. CT abdomen/pelvis w/ IV contrast: Lung windows through the visualized portions of the bases reveal mild atelectasis. Bone windows reveal no suspicious lesions. 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 There are radiolucent gallstones and mild gallbladder wall thickening. The gallbladder does not appear distended. There is no pericholecystic inflammation. The common duct measures 8 mm proximally without a clear cause for distal obstruction. The pancreatic duct is not dilated. The liver, pancreas, spleen, adrenal glands and kidneys are unremarkable. There are no pathologically enlarged lymph nodes. Changes of bilateral tubal ligation are noted. The appendix is surgically absent. There is no small bowel obstruction. IMPRESSION: 1. Cholelithiasis with gallbladder wall thickening. Sonography could further assess for acute cholecystitis if there is persistent concern. 2. Mild extrahepatic biliary dilatation. Correlate for cholestasis to assess significance. VTE Prophylaxis Ordered VTE Prophylaxis Devices: Yes VTE Pharmacological Prophylaxi: No Assessment/Plan Assessment/Plan A/P: Acute cholecystitis - NPO, surgery consulted. ED has given cipro + flagyl. Her PCN allergy is from a childhood rash, will transition to zosyn in AM, watch for reaction, will treat if so H/O peptic ulcer disease - on H2 damián, will continue Ovarian cyst - recently diagnosed. 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) - will monitor pain needs and give shortest duration possible for her pain Panic attacks - meditation emphasized, prn meds FEN - NPO PPX - ambulatory FULL CODE Dispo - inpatient Justicifation of Admission Dx: Justifications for Admission: Justification of Admission Dx: N/A VIKTOR NAGEL MD Dec 15, 2019 16:15
[2019-12-15] MEDS ORDERED: CIPROFLOXACIN 400MG PREMIX 200 ML IV ONE (16:30)
[2019-12-15] MEDS: IV NORMAL SALINE 1000ML BAG 1,000 ML IV SCH (17:46)
[2019-12-15 19:00] VITALS: BP 100/60
[2019-12-15] MEDS ORDERED: KETOROLAC 30 MG/ML VIAL. IVP ONE (19:00)
[2019-12-15] MEDS: HYDROmorphone 2 MG/ML VIAL IVP PRN (22:36)
[2019-12-15] MEDS: FAMOTIDINE 20 MG/2 ML VIAL IVP SCH (22:36)
[2019-12-15] MEDS ORDERED: ESOM20CA PO (22:55)
[2019-12-15 23:17] VITALS: BP 98/55
[2019-12-16] VITALS (8 sets, daily range): BP systolic 99–135; BP diastolic 64–103
[2019-12-16] MEDS: PIPERACILLIN/TAZOBACTAM 3.375 GM in IV NORMAL SALINE 50ML 50 ML IV SCH ×4 (00:35→18:20)
[2019-12-16] MEDS: HYDROmorphone 2 MG/ML VIAL IVP PRN ×5 (02:37→19:43)
[2019-12-16] MEDS: ONDANSETRON PF 4 MG/2 ML VIAL. IVP PRN ×2 (04:38→10:41)
[2019-12-16] MEDS: IV NORMAL SALINE 1000ML BAG 1,000 ML IV SCH ×2 (04:38→14:00)
[2019-12-16] MEDS ORDERED: IV RINGERS,LACTATED 1000ML 1,000 ML IV SCH (07:18)
[2019-12-16] MEDS ORDERED: PROCHLORPERAZINE 10 MG/2 ML VIAL. IVP PRN (07:30)
[2019-12-16] MEDS ORDERED: ONDANSETRON PF 4 MG/2 ML VIAL. IVP PRN (07:30)
[2019-12-16] MEDS ORDERED: fentaNYL PF VIAL 100 MCG/2 ML VIAL IVP PRN (07:30)
[2019-12-16] MEDS ORDERED: MORPHINE SULFATE 2 MG/ML VIAL. IVP PRN (07:30)
[2019-12-16] MEDS ORDERED: LIDOCAINE 1% PF 2 ML VIAL. ID PRN (07:30)
[2019-12-16] MEDS ORDERED: HYDROmorphone 2 MG/ML VIAL IVP PRN (07:30)
[2019-12-16] MEDS: FAMOTIDINE 20 MG/2 ML VIAL IVP SCH ×2 (09:00→19:43)
--- NOTE | 2019-12-16 09:11 | PDOC ---
[employer]GRESS NOTE Date of Service DOS: DATE: 12/16/19 TIME: 09:10 Chief Complaint Chief Complaint Acute cholecystitis - NPO, surgery consulted. ED has given cipro + flagyl. Her PCN allergy is from a childhood rash, will transition to zosyn in AM, watch for reaction, will treat if so H/O peptic ulcer disease - on H2 damián, will continue Ovarian cyst - recently diagnosed. 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) - will monitor pain needs and give shortest duration possible for her pain Panic attacks - meditation emphasized, prn meds FEN - Clear liquid PPX - ambulatory FULL CODE Dispo - inpatient History of Present Illness History of Present Illness Ms Hoff is a 44-year-old female with past medical history significant for peptic ulcer disease, ovarian cyst, fatty liver, substance use disorder in sustained remission (former IVDA), and panic attacks, presents to the ED with worsening progressive abdominal swelling and pain for the past 6 months with associated nausea, relieved with lying on her left side. She is seeking medical care again because it has become unbearable over the past month and she is not able to eat any food or liquid with a feeling of early satieaty and for the past 4 days has vomited after most her meals, but states she was able to eat a sandwich from [employer] on 12/14/2019 and held it down. Has been having loose bowels for the past 4 days, but normally notes a bowel movement every 3 days is normal for her. Patient states she was told by [facility] and [facility] that she had liver issues as she has been evaluated at both hospitals recently for similar complaints. LMP was 4 years ago-states she was seen in our emergency department 3 weeks ago for ovarian cyst. Denies associated cough, sore throat, dyspnea, chest pain, melena, hematochezia, hematemesis, hemoptysis, leg swelling, rash, anuria, dysuria, hematuria, flank pain EKG NSR at 90bpm with TWI in lead III, otherwise no abnormal ST segments CT abdoment pelvis concerning for cholecystitis and RUQ US with positive sonographic [place] sign Labs with WBC 8.2, Hb 14, Platelets 235, Na 141, K 3.8, BUN 16, Cr 1, Glucose 97. Alk phose 120, bili WNL, lipase WNL, AST and ALT WNL. Admitted for further treatment. Apparently nursing staff discovered she has used methamphetamine 2 days ago. Vitals/I&O Vitals/I&O: Vital Signs Date Time Temp Pulse Resp B/P (MAP) Pulse Ox O2 Delivery O2 Flow Rate FiO2 12/16/19 08:27 Room Air 12/16/19 03:15 97 12/16/19 03:00 97.7 60 18 99/69 (79) 97.7 I & O 12/15/19 12/15/19 12/16/19 15:00 23:00 07:00 Intake Total 2000 ml 400 ml Balance 2000 ml 400 ml Physical Exam General: Alert, Oriented X3, Cooperative, moderate distress Abdomen: Normal bowel sounds, Soft, No hepatosplenomegaly, No masses, Other (RUQ tender, positive lopez sign) Extremities: No clubbing, No cyanosis, No edema, Normal pulses, No tenderness/swelling Skin: No rashes, No breakdown, No significant lesion Labs Labs: Laboratory Tests Test 12/15/19 09:45 12/15/19 11:32 12/15/19 18:09 White Blood Count 8.2 x10^3/uL (4.0-11.0) Red Blood Count 4.78 x10^6/uL (3.50-5.40) Hemoglobin 14.0 g/dL (12.0-15.5) Hematocrit 41.1 % (36.0-47.0) Mean Corpuscular Volume 86 fL (79-100) Mean Corpuscular Hemoglobin 29 pg (25-35) Mean Corpuscular Hemoglobin Concent 34 g/dL (31-37) Red Cell Distribution Width 13.8 % (11.5-14.5) Platelet Count 235 x10^3/uL (140-400) Neutrophils (%) (Auto) 67 % (31-73) Lymphocytes (%) (Auto) 24 % (24-48) Monocytes (%) (Auto) 6 % (0-9) Eosinophils (%) (Auto) 3 % (0-3) Basophils (%) (Auto) 1 % (0-3) Neutrophils # (Auto) 5.4 x10^3/uL (1.8-7.7) Lymphocytes # (Auto) 2.0 x10^3/uL (1.0-4.8) Monocytes # (Auto) 0.5 x10^3/uL (0.0-1.1) Eosinophils # (Auto) 0.2 x10^3/uL (0.0-0.7) Basophils # (Auto) 0.1 x10^3/uL (0.0-0.2) Sodium Level 141 mmol/L (136-145) Potassium Level 3.8 mmol/L (3.5-5.1) Chloride Level 104 mmol/L (98-107) Carbon Dioxide Level 27 mmol/L (21-32) Anion Gap 10 (6-14) Blood Urea Nitrogen 16 mg/dL (7-20) Creatinine 1.0 mg/dL (0.6-1.0) Estimated GFR (Cockcroft-Gault) 60.5 Glucose Level 97 mg/dL (70-99) Calcium Level 8.3 mg/dL (8.5-10.1) Total Bilirubin 0.3 mg/dL (0.2-1.0) Direct Bilirubin 0.1 mg/dL (0.0-0.2) Aspartate Amino Transf (AST/SGOT) 18 U/L (15-37) Alanine Aminotransferase (ALT/SGPT) 30 U/L (14-59) Alkaline Phosphatase 120 U/L (46-116) Creatine Kinase 130 U/L (26-192) Troponin I Quantitative < 0.017 ng/mL (0.000-0.055) Total Protein 6.8 g/dL (6.4-8.2) Albumin 3.4 g/dL (3.4-5.0) Lipase 96 U/L (73-393) Bedside Urine HCG, Qualitative Hcg negative (Negative) SARS-CoV-2 Antigen (Rapid) Negative (NEGATIVE) Assessment and Plan Assessmemt and Plan Problems Medical Problems: (1) Acute cholecystitis Status: Acute Comment Review of Relevant I have reviewed the following items janneth (where applicable) has been applied. Medications: Current Medications Medications (Trade) Dose Ordered Sig/Shon Route PRN Reason Start Time Stop Time Status Last Admin Dose Admin Sodium Chloride 1,000 ml @ 1,000 mls/hr Q1H IV 12/15/19 09:43 12/15/19 10:42 DC 12/15/19 10:04 Hydromorphone HCl (Dilaudid) 1 mg 1X ONCE IVP 12/15/19 10:15 12/15/19 10:16 DC 12/15/19 10:07 Sodium Chloride 1,000 ml @ 1,000 mls/hr 1X ONCE IV 12/15/19 10:15 12/15/19 11:14 DC 12/15/19 10:05 Ondansetron HCl (Zofran) 4 mg 1X ONCE IVP 12/15/19 10:15 12/15/19 10:16 DC 12/15/19 10:07 Iohexol (Omnipaque 240 Mg/ml) 30 ml 1X ONCE PO 12/15/19 10:30 12/15/19 10:31 DC 12/15/19 10:30 Iohexol (Omnipaque 300 Mg/ml) 75 ml 1X ONCE IV 12/15/19 10:30 12/15/19 10:31 DC 12/15/19 10:30 Metoclopramide HCl (Reglan Vial) 10 mg 1X ONCE IVP 12/15/19 10:45 12/15/19 10:46 DC 12/15/19 10:50 Ciprofloxacin/ Dextrose 200 ml @ 200 mls/hr 1X ONCE IV 12/15/19 16:30 12/15/19 17:29 DC 12/15/19 17:43 Metronidazole 100 ml @ 100 mls/hr 1X ONCE IV 12/15/19 16:30 12/15/19 17:29 DC 12/15/19 16:40 Sodium Chloride 1,000 ml @ 100 mls/hr Q10H IV 12/15/19 16:37 12/16/19 16:36 12/16/19 04:38 Ketorolac Tromethamine (Toradol 30mg Vial) 30 mg 1X ONCE IVP 12/15/19 19:00 12/15/19 19:01 DC 12/15/19 18:33 Hydromorphone HCl (Dilaudid) 2 mg PRN Q3HRS PRN IVP PAIN 12/15/19 18:30 12/16/19 08:27 Ondansetron HCl (Zofran) 4 mg PRN Q6HRS PRN IVP NAUSEA/VOMITING 12/15/19 21:30 12/16/19 04:38 Piperacillin Sod/ Tazobactam Sod 3.375 gm/Sodium Chloride 50 ml @ 100 mls/hr Q6HRS IV 12/16/19 00:00 12/16/19 06:02 Famotidine (Pepcid Vial) 20 mg BID IVP 12/15/19 22:00 12/15/19 22:36 Justicifation of Admission Dx: Justifications for Admission: Justification of Admission Dx: Yes VIKTOR NAGEL MD Dec 16, 2019 09:11
--- NOTE | 2019-12-16 09:28 | PDOC2 ---
CONSULT Date of Consult Date of Consult DATE: 12/16/19 TIME: 09:26 Reason for Consult Reason for Consult: Right upper quadrant abdominal pain Referring Physician Referring Physician: Crescencio Identification/Chief Complaint Chief Complaint Right upper quadrant abdominal pain Source Source: Chart review, Patient History of Present Illness Reason for Visit: 44-year-old female whose had several months history of abdominal pain and postprandial nausea she states that she has had some problem with her liver but recently the pain got much worse came to the emergency department for evaluation ultrasound of her abdomen was done which shows gallstones and thickened gallbladder wall with a positive Velarde sign Past Medical History GI: GERD Psych: Anxiety, Addictions Past Surgical History Past Surgical History: Tubal Ligation, Other (D+C, FINGER SURGERY) Family History Family History: Hypertension Social History <1 pack per day ALCOHOL: none Drugs: Marijuana Current Problem List Problem List Problems Medical Problems: (1) Acute cholecystitis Status: Acute Current Medications Current Medications Current Medications Sodium Chloride 1,000 ml @ 1,000 mls/hr Q1H IV Last administered on 12/15/19at 10:04; Start 12/15/19 at 09:43; Stop 12/15/19 at 10:42; Status DC Hydromorphone HCl (Dilaudid) 1 mg 1X ONCE IVP Last administered on 12/15/19at 10:07; Start 12/15/19 at 10:15; Stop 12/15/19 at 10:16; Status DC Sodium Chloride 1,000 ml @ 1,000 mls/hr 1X ONCE IV Last administered on 11/26 at 10:05; Start 12/15/19 at 10:15; Stop 12/15/19 at 11:14; Status DC Ondansetron HCl (Zofran) 4 mg 1X ONCE IVP Last administered on 12/15/19at 10:07; Start 12/15/19 at 10:15; Stop 12/15/19 at 10:16; Status DC Iohexol (Omnipaque 240 Mg/ml) 30 ml 1X ONCE PO Last administered on 12/15/19at 10:30; Start 12/15/19 at 10:30; Stop 12/15/19 at 10:31; Status DC Iohexol (Omnipaque 300 Mg/ml) 75 ml 1X ONCE IV Last administered on 12/15/19at 10:30; Start 12/15/19 at 10:30; Stop 12/15/19 at 10:31; Status DC Info (CONTRAST GIVEN -- Rx MONITORING) 1 each PRN DAILY PRN MC SEE COMMENTS; Start 12/15/19 at 10:30; Stop 12/17/19 at 10:29 Metoclopramide HCl (Reglan Vial) 10 mg 1X ONCE IVP Last administered on 12/15/19at 10:50; Start 12/15/19 at 10:45; Stop 12/15/19 at 10:46; Status DC Ciprofloxacin/ Dextrose 200 ml @ 200 mls/hr 1X ONCE IV Last administered on 12/15/19at 17:43; Start 12/15/19 at 16:30; Stop 12/15/19 at 17:29; Status DC Metronidazole 100 ml @ 100 mls/hr 1X ONCE IV Last administered on 12/15/19at 16:40; Start 12/15/19 at 16:30; Stop 12/15/19 at 17:29; Status DC Sodium Chloride 1,000 ml @ 100 mls/hr Q10H IV Last administered on 12/16/19at 04:38; Start 12/15/19 at 16:37; Stop 12/16/19 at 16:36 Ketorolac Tromethamine (Toradol 30mg Vial) 30 mg 1X ONCE IVP Last administered on 12/15/19at 18:33; Start 12/15/19 at 19:00; Stop 12/15/19 at 19:01; Status DC Hydromorphone HCl (Dilaudid) 2 mg PRN Q3HRS PRN IVP PAIN Last administered on 12/16/19at 08:27; Start 12/15/19 at 18:30 Ondansetron HCl (Zofran) 4 mg PRN Q6HRS PRN IVP NAUSEA/VOMITING Last administered on 12/16/19at 04:38; Start 12/15/19 at 21:30 Piperacillin Sod/ Tazobactam Sod 3.375 gm/Sodium Chloride 50 ml @ 100 mls/hr Q6HRS IV Last administered on 12/16/19at 06:02; Start 12/16/19 at 00:00 Famotidine (Pepcid Vial) 20 mg BID IVP Last administered on 12/15/19at 22:36; Start 12/15/19 at 22:00 Cefazolin Sodium/ Dextrose 50 ml @ 100 mls/hr 1X PREOP ONCE IV ; Start 12/16/19 at 07:00; Stop 12/16/19 at 07:31; Status DC Ondansetron HCl (Zofran) 4 mg PRN Q6HRS PRN IVP NAUSEA/VOMITING; Start 12/16/19 at 07:30; Stop 12/16/19 at 20:00 Fentanyl Citrate (Fentanyl 2ml Vial) 25 mcg PRN Q5MIN PRN IVP MILD PAIN 1-3; Start 12/16/19 at 07:30; Stop 12/16/19 at 20:00 Fentanyl Citrate (Fentanyl 2ml Vial) 50 mcg PRN Q5MIN PRN IVP MODERATE TO SEVERE PAIN; Start 12/16/19 at 07:30; Stop 12/16/19 at 20:00 Morphine Sulfate (Morphine Sulfate) 1 mg PRN Q10MIN PRN IVP SEVERE PAIN 7-10; Start 12/16/19 at 07:30; Stop 12/16/19 at 20:00 Ringer's Solution 1,000 ml @ 30 mls/hr Q24H IV ; Start 12/16/19 at 07:18; Stop 12/16/19 at 19:17 Lidocaine HCl (Xylocaine-Mpf 1% 2ml Vial) 2 ml 1X PRN PRN ID IV START; Start 12/16/19 at 07:30; Stop 12/16/19 at 20:00 Hydromorphone HCl (Dilaudid) 0.5 mg PRN Q10MIN PRN IVP SEV PAIN, Second choice; Start 12/16/19 at 07:30; Stop 12/16/19 at 20:00 Prochlorperazine Edisylate (Compazine) 5 mg PACU PRN PRN IVP NAUSEA, MRX1; Start 12/16/19 at 07:30; Stop 12/16/19 at 20:00 Active Scripts Active Reported Nexium Capsule (Esomeprazole Magnesium) 20 Mg Capsule. 1 Cap PO DAILY Allergies Allergies: Coded Allergies: Penicillins (Verified Allergy, Severe, hives, 12/15/19) MD IS AWARE OF ALLERGY - OK TO GIVE MED AND SEE IF PATIENT TOLERATES ROS Gastrointestinal: Yes Nausea, Yes Abdominal Pain Physical Exam General: Alert, Oriented X3, Cooperative, mild distress HEENT: Atraumatic, EOMI Lungs: Clear to auscultation, Normal air movement Heart: Regular rate, No murmurs Abdomen: Normal bowel sounds, Soft, Other (Tender to palpation right upper quadrant) Extremities: No edema Skin: No significant lesion Neuro: Normal speech Psych/Mental Status: Mental status NL Vitals VITALS Vital Signs Date Time Temp Pulse Resp B/P (MAP) Pulse Ox O2 Delivery O2 Flow Rate FiO2 12/16/19 08:27 Room Air 12/16/19 07:00 97.5 72 16 108/64 (79) 100 97.5 Labs Labs Laboratory Tests Test 12/15/19 09:45 12/15/19 11:32 12/15/19 18:09 White Blood Count 8.2 x10^3/uL (4.0-11.0) Red Blood Count 4.78 x10^6/uL (3.50-5.40) Hemoglobin 14.0 g/dL (12.0-15.5) Hematocrit 41.1 % (36.0-47.0) Mean Corpuscular Volume 86 fL (79-100) Mean Corpuscular Hemoglobin 29 pg (25-35) Mean Corpuscular Hemoglobin Concent 34 g/dL (31-37) Red Cell Distribution Width 13.8 % (11.5-14.5) Platelet Count 235 x10^3/uL (140-400) Neutrophils (%) (Auto) 67 % (31-73) Lymphocytes (%) (Auto) 24 % (24-48) Monocytes (%) (Auto) 6 % (0-9) Eosinophils (%) (Auto) 3 % (0-3) Basophils (%) (Auto) 1 % (0-3) Neutrophils # (Auto) 5.4 x10^3/uL (1.8-7.7) Lymphocytes # (Auto) 2.0 x10^3/uL (1.0-4.8) Monocytes # (Auto) 0.5 x10^3/uL (0.0-1.1) Eosinophils # (Auto) 0.2 x10^3/uL (0.0-0.7) Basophils # (Auto) 0.1 x10^3/uL (0.0-0.2) Sodium Level 141 mmol/L (136-145) Potassium Level 3.8 mmol/L (3.5-5.1) Chloride Level 104 mmol/L (98-107) Carbon Dioxide Level 27 mmol/L (21-32) Anion Gap 10 (6-14) Blood Urea Nitrogen 16 mg/dL (7-20) Creatinine 1.0 mg/dL (0.6-1.0) Estimated GFR (Cockcroft-Gault) 60.5 Glucose Level 97 mg/dL (70-99) Calcium Level 8.3 mg/dL (8.5-10.1) Total Bilirubin 0.3 mg/dL (0.2-1.0) Direct Bilirubin 0.1 mg/dL (0.0-0.2) Aspartate Amino Transf (AST/SGOT) 18 U/L (15-37) Alanine Aminotransferase (ALT/SGPT) 30 U/L (14-59) Alkaline Phosphatase 120 U/L (46-116) Creatine Kinase 130 U/L (26-192) Troponin I Quantitative < 0.017 ng/mL (0.000-0.055) Total Protein 6.8 g/dL (6.4-8.2) Albumin 3.4 g/dL (3.4-5.0) Lipase 96 U/L (73-393) Bedside Urine HCG, Qualitative Hcg negative (Negative) SARS-CoV-2 Antigen (Rapid) Negative (NEGATIVE) Laboratory Tests Test 12/15/19 09:45 12/15/19 11:32 12/15/19 18:09 White Blood Count 8.2 x10^3/uL (4.0-11.0) Red Blood Count 4.78 x10^6/uL (3.50-5.40) Hemoglobin 14.0 g/dL (12.0-15.5) Hematocrit 41.1 % (36.0-47.0) Mean Corpuscular Volume 86 fL (79-100) Mean Corpuscular Hemoglobin 29 pg (25-35) Mean Corpuscular Hemoglobin Concent 34 g/dL (31-37) Red Cell Distribution Width 13.8 % (11.5-14.5) Platelet Count 235 x10^3/uL (140-400) Neutrophils (%) (Auto) 67 % (31-73) Lymphocytes (%) (Auto) 24 % (24-48) Monocytes (%) (Auto) 6 % (0-9) Eosinophils (%) (Auto) 3 % (0-3) Basophils (%) (Auto) 1 % (0-3) Neutrophils # (Auto) 5.4 x10^3/uL (1.8-7.7) Lymphocytes # (Auto) 2.0 x10^3/uL (1.0-4.8) Monocytes # (Auto) 0.5 x10^3/uL (0.0-1.1) Eosinophils # (Auto) 0.2 x10^3/uL (0.0-0.7) Basophils # (Auto) 0.1 x10^3/uL (0.0-0.2) Sodium Level 141 mmol/L (136-145) Potassium Level 3.8 mmol/L (3.5-5.1) Chloride Level 104 mmol/L (98-107) Carbon Dioxide Level 27 mmol/L (21-32) Anion Gap 10 (6-14) Blood Urea Nitrogen 16 mg/dL (7-20) Creatinine 1.0 mg/dL (0.6-1.0) Estimated GFR (Cockcroft-Gault) 60.5 Glucose Level 97 mg/dL (70-99) Calcium Level 8.3 mg/dL (8.5-10.1) Total Bilirubin 0.3 mg/dL (0.2-1.0) Direct Bilirubin 0.1 mg/dL (0.0-0.2) Aspartate Amino Transf (AST/SGOT) 18 U/L (15-37) Alanine Aminotransferase (ALT/SGPT) 30 U/L (14-59) Alkaline Phosphatase 120 U/L (46-116) Creatine Kinase 130 U/L (26-192) Troponin I Quantitative < 0.017 ng/mL (0.000-0.055) Total Protein 6.8 g/dL (6.4-8.2) Albumin 3.4 g/dL (3.4-5.0) Lipase 96 U/L (73-393) Bedside Urine HCG, Qualitative Hcg negative (Negative) SARS-CoV-2 Antigen (Rapid) Negative (NEGATIVE) Images Images As per the history of present illness Assessment/Plan Assessment/Plan Right upper quadrant abdominal pain signs on ultrasound of cholelithiasis and cholecystitis. Plan for laparoscopic cholecystectomy today. YARI AMBROSE MD Dec 16, 2019 09:28
[2019-12-16] MEDS ORDERED: MIDAZOLAM HCL/PF 2 MG/2 ML VIAL. ONE ×2 (09:35→09:42)
[2019-12-16] MEDS ORDERED: fentaNYL PF VIAL 100 MCG/2 ML VIAL ONE ×3 (09:36→12:21)
[2019-12-16] MEDS ORDERED: ONDANSETRON PF 4 MG/2 ML VIAL. ONE ×2 (09:36→09:45)
[2019-12-16] MEDS ORDERED: LIDOCAINE 2% PF 5 ML VIAL. ONE ×2 (09:36→09:45)
[2019-12-16] MEDS ORDERED: DEXAMETHASONE SOD PHOS 4 MG/ML VIAL ONE ×3 (09:36→11:37)
[2019-12-16] MEDS ORDERED: ROCURONIUM 50 MG/5 ML VIAL. ONE (09:41)
[2019-12-16] MEDS ORDERED: KETOROLAC 30 MG/ML VIAL. ONE (09:45)
[2019-12-16] MEDS ORDERED: PROPOFOL 10 MG/ML (20ML) VIAL. IV ONE (09:45)
[2019-12-16] MEDS ORDERED: FAMOTIDINE 20 MG/2 ML VIAL ONE (09:45)
[2019-12-16] MEDS ORDERED: SEVOFLURANE 61 TO 120 MINUTES. IH ONE (09:45)
[2019-12-16] MEDS ORDERED: NEOSTIGMINE METHYLSULFATE 5 MG/5 ML SYRINGE. ONE ×2 (10:35→11:41)
[2019-12-16] MEDS ORDERED: SURGICEL HEMOSTAT 4X8 EACH. ONE (11:14)
[2019-12-16] MEDS ORDERED: BUPIVACAINE-EPI 0.25%-1:200000 MPF 30 ML VIAL. ONE (11:14)
[2019-12-16] MEDS ORDERED: GLYCOPYRROLATE 1 MG/5 ML VIAL. ONE (11:41)
--- NOTE | 2019-12-16 11:56 | PDOC4 ---
Operative Note Operative Note Date: December 152019 at 1154 Preoperative diagnosis: Acute cholecystitis Postoperative diagnosis: Same Procedure: Laparoscopic cholecystectomy Specimen: Gallbladder Dictation: Patient is 44-year-old female was mated to the hospital with right upper quadrant abdominal pain ultrasound showing gallstones. Procedure of l aparoscopic cholecystectomy was explained to the patient detail risk benefits were also discussed including bleeding infection injury to intra-abdominal contents possibly necessitating further or open operations alternatives to this procedure also discussed with the patient who seemed to understand and gave both verbal and written consent to have the procedure performed. Patient was taken to the operating room placed in the supine position general anesthesia was initiated once patient was sleeping intubated her abdomen was prepped and draped usual sterile fashion using ChloraPrep. Area just below the umbilicus was injected with quarter percent Marcaine with epinephrine incision made 11 blade scalpel and a varies needle was placed within the abdomen creating pneumoperitoneum once this was complete 11 mm port was placed and a 5 mm camera was placed within the abdomen which was inspected no other abnormalities were noted. 5 mm port was placed in the epigastrium a 5 mm port was placed in the right midabdomen and a 5 mm port was placed in the right lateral abdomen the dome of the gallbladder is grasped retracted cephalad the infundibulum the gallbladder is grasped retracted laterally exposing the triangle. The adherent tissues the triangle were taken down with blunt dissection exposing the cystic duct and cystic artery both were doubly clipped and transected. The gallbladder is taken off the liver with hook electrocautery placed in the Endo Catch bag removed from the umbilicus. Right upper quadrant was irrigated and suctioned dry hemostasis deemed appropriate and the pneumoperitoneum was reduced all ports were removed the fascial defect at the umbilicus was closed with a [id number] 0 Vicryl suture and the skin was reapproximated all port sites for subcuticular Monocryl Mastisol Steri-Strips and island dressings were applied. Patient was awakened extubated in the operating room taken to recovery in stable condition all sponge instrument needle counts listed as correct estimated blood loss 20 mL. YARI AMBROSE MD Dec 16, 2019 11:56
[2019-12-16] MEDS ORDERED: oxyCODONE/APAP 5/325 1 TAB TABLET PO PRN (12:00)
[2019-12-16] MEDS ORDERED: SUGAMMADEX SODIUM 200 MG/2 ML VIAL. IVP ONE (12:00)
[2019-12-16] MEDS: fentaNYL PF VIAL 100 MCG/2 ML VIAL IVP PRN ×2 (12:27→12:38)
--- NOTE | 2019-12-16 14:16 | NUR ---
SW following. Reviewed chart and discussed with RN. Pt from home, room air, low fat diet. No PT/OT needs. Pt having surgery today. SW completed referral to [facility] with PAT. Pt added to the weekend discharge list for possible discharge pending clearance from PAT. Spoke with Alvin from [facility] who will see pt tomorrow as pt in surgery when he tried to meet with her. SW to follow as needed.
[2019-12-17] MEDS: PIPERACILLIN/TAZOBACTAM 3.375 GM in IV NORMAL SALINE 50ML 50 ML IV SCH ×3 (00:10→11:54)
[2019-12-17] MEDS: HYDROmorphone 2 MG/ML VIAL IVP PRN ×3 (00:12→09:51)
[2019-12-17 03:00] VITALS: BP 123/71
[2019-12-17] MEDS: ONDANSETRON PF 4 MG/2 ML VIAL. IVP PRN ×2 (03:58→11:54)
[2019-12-17 05:07] LABS: BASO % 0 % (0-3); EOS % 0 % (0-3); HEMATOCRIT 37.7 % (36.0-47.0); HEMOGLOBIN 12.7 g/dL (12.0-15.5); LYMPH % 7 % (24-48); MEAN CORPUSCULAR HEMOGLOBIN 30 pg (25-35); MEAN CORPUSCULAR HGB CONC 34 g/dL (31-37); MEAN CORPUSCULAR VOLUME 88 fL (79-100); MONO # 0.4 x10^3/uL (0.0-1.1); MONO % 3 % (0-9); NEUT # 12.7 x10^3/uL (1.8-7.7); NEUT % 90 % (31-73); PLATELET COUNT 194 x10^3/uL (140-400); RED CELL DISTRIBUTION WIDTH 13.8 % (11.5-14.5); WHITE BLOOD COUNT 14.2 x10^3/uL (4.0-11.0)
[2019-12-17 05:35] LABS: ALBUMIN 3.1 g/dL (3.4-5.0); CALCIUM 8.6 mg/dL (8.5-10.1); CREATININE 0.8 mg/dL (0.6-1.0); GFR 78.3; POTASSIUM 4.2 mmol/L (3.5-5.1); TOTAL BILIRUBIN 0.6 mg/dL (0.2-1.0); TOTAL PROTEIN 6.3 g/dL (6.4-8.2)
[2019-12-17 07:00] VITALS: BP 125/76
[2019-12-17] MEDS: FAMOTIDINE 20 MG/2 ML VIAL IVP SCH (09:51)
[2019-12-17 10:29] LABS: % BANDS 1 % (0-9); % LYMPHS 8 % (24-48); % MONOS 3 % (0-10); % SEGS 88 % (35-66); PLT ESTIMATE ADEQUATE (ADEQUATE)
--- NOTE | 2019-12-17 10:53 | PDOC ---
[employer] PROGRESS NOTE Date of Service DOS: DATE: 12/17/19 TIME: 10:21 Chief Complaint Chief Complaint Acute cholecystitis - change to amoxicillin H/O peptic ulcer disease - on H2 damián, will continue Ovarian cyst - recently diagnosed. 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) - will monitor pain needs and give shortest duration possible for her pain Panic attacks - meditation emphasized, prn meds FEN - Clear liquid PPX - ambulatory FULL CODE Dispo - inpatient History of Present Illness History of Present Illness Ms Hoff is a 44-year-old female with past medical history significant for peptic ulcer disease, ovarian cyst, fatty liver, substance use disorder in sustained remission (former IVDA), and panic attacks, presents to the ED with worsening progressive abdominal swelling and pain for the past 6 months with associated nausea, relieved with lying on her left side. She is seeking medical care again because it has become unbearable over the past month and she is not able to eat any food or liquid with a feeling of early satieaty and for the past 4 days has vomited after most her meals, but states [facility] and held it down. Has been having loose bowels for the past 4 days, but normally notes a bowel movement every 3 days is normal for her. Patient states she was told by [facility] and [facility] that she had liver issues as she has been evaluated at both hospitals recently for similar complaints. LMP was 4 years ago-states she was seen in our emergency department 3 weeks ago for ovarian cyst. Denies associated cough, sore throat, dyspnea, chest pain, melena, hematochezia, hematemesis, hemoptysis, leg swelling, rash, anuria, dysuria, hematuria, flank pain EKG NSR at 90bpm with TWI in lead III, otherwise no abnormal ST segments CT abdoment pelvis concerning for cholecystitis and RUQ US with positive sonographic Elber[place] sign Labs with WBC 8.2, Hb 14, Platelets 235, Na 141, K 3.8, BUN 16, Cr 1, Glucose 97. Alk phose 120, bili WNL, lipase WNL, AST and ALT WNL. Admitted for further treatment. Apparently nursing staff discovered she has used methamphetamine 2 days prior to admit 12/15: to [facility] Seen post WBC 14.2, Hb 12.2, AST 107, ALT 152. She has some pain, but is passing flatus and is hungry. She did have some nausea with bite of oatmeal at breakfast. Afebrile no chest pain or leg swelling. Plan: Monitor over lunch If tolerating p.o. well can go home hydrocodone and 3 days of amoxicillin. Has issue outpatient follow-up with psychological services for her history of methamphetamine abuse in remission Vitals/I&O Vitals/I&O: Vital Signs Date Time Temp Pulse Resp B/P (MAP) Pulse Ox O2 Delivery O2 Flow Rate FiO2 12/17/19 04:22 20 Room Air 12/17/19 03:00 97.7 60 123/71 (88) 98 2.0 97.7 I & O 12/16/19 12/16/19 12/17/19 15:00 23:00 07:00 Intake Total 1450 ml 50 ml 1170 ml Output Total 25 ml Balance 1425 ml 50 ml 1170 ml Physical Exam General: Alert, Oriented X3, Cooperative, mild distress Heart: Regular rate, No murmurs Abdomen: Normal bowel sounds, Soft, Other (Tender to palpation right upper quadrant) Extremities: No edema Skin: No significant lesion Labs Labs: Laboratory Tests Test 12/17/19 04:33 White Blood Count 14.2 x10^3/uL (4.0-11.0) Red Blood Count 4.30 x10^6/uL (3.50-5.40) Hemoglobin 12.7 g/dL (12.0-15.5) Hematocrit 37.7 % (36.0-47.0) Mean Corpuscular Volume 88 fL (79-100) Mean Corpuscular Hemoglobin 30 pg (25-35) Mean Corpuscular Hemoglobin Concent 34 g/dL (31-37) Red Cell Distribution Width 13.8 % (11.5-14.5) Platelet Count 194 x10^3/uL (140-400) Neutrophils (%) (Auto) 90 % (31-73) Lymphocytes (%) (Auto) 7 % (24-48) Monocytes (%) (Auto) 3 % (0-9) Eosinophils (%) (Auto) 0 % (0-3) Basophils (%) (Auto) 0 % (0-3) Neutrophils # (Auto) 12.7 x10^3/uL (1.8-7.7) Lymphocytes # (Auto) 1.0 x10^3/uL (1.0-4.8) Monocytes # (Auto) 0.4 x10^3/uL (0.0-1.1) Eosinophils # (Auto) 0.0 x10^3/uL (0.0-0.7) Basophils # (Auto) 0.0 x10^3/uL (0.0-0.2) Sodium Level 141 mmol/L (136-145) Potassium Level 4.2 mmol/L (3.5-5.1) Chloride Level 108 mmol/L (98-107) Carbon Dioxide Level 24 mmol/L (21-32) Anion Gap 9 (6-14) Blood Urea Nitrogen 6 mg/dL (7-20) Creatinine 0.8 mg/dL (0.6-1.0) Estimated GFR (Cockcroft-Gault) 78.3 BUN/Creatinine Ratio 8 (6-20) Glucose Level 115 mg/dL (70-99) Calcium Level 8.6 mg/dL (8.5-10.1) Total Bilirubin 0.6 mg/dL (0.2-1.0) Aspartate Amino Transf (AST/SGOT) 107 U/L (15-37) Alanine Aminotransferase (ALT/SGPT) 152 U/L (14-59) Alkaline Phosphatase 99 U/L (46-116) Total Protein 6.3 g/dL (6.4-8.2) Albumin 3.1 g/dL (3.4-5.0) Albumin/Globulin Ratio 1.0 (1.0-1.7) Assessment and Plan Assessmemt and Plan Problems Medical Problems: (1) Acute cholecystitis Status: Acute Comment Review of Relevant I have reviewed the following items janneth (where applicable) has been applied. Medications: Current Medications Medications (Trade) Dose Ordered Sig/Shon Route PRN Reason Start Time Stop Time Status Last Admin Dose Admin Bupivacaine HCl/ Epinephrine Bitart (Sensorcaine-Epi 0.25%-1:319848 Mpf) 30 ml STK-MED ONCE .ROUTE 12/16/19 11:14 12/16/19 11:15 DC 12/16/19 11:27 Justicifation of Admission Dx: Justifications for Admission: Justification of Admission Dx: Yes VIKTOR NAGEL MD Dec 17, 2019 10:53
[2019-12-17 11:00] VITALS: BP 130/91
[2019-12-17] MEDS ORDERED: OXYC1TAB15 PO (11:48)
[2019-12-17] MEDS ORDERED: PROM12.58 PO (11:48)
[2019-12-17] MEDS ORDERED: AMOX500C PO (11:48)
--- NOTE | 2019-12-17 12:29 | PDOC ---
SURGICAL PROGRESS NOTE DATE: 12/17/19 TIME: 12:28 Subjective some pain RUQ no nausea, tolerated breakfast some flatus Vital Signs Vital Signs Date Time Temp Pulse Resp B/P (MAP) Pulse Ox O2 Delivery O2 Flow Rate FiO2 12/17/19 07:00 97.9 90 16 125/76 (92) 97 Room Air 97.9 12/17/19 03:00 2.0 I&O Intake and Output 12/17/19 07:00 Intake Total 2670 ml Output Total 25 ml Balance 2645 ml Intake Oral 120 ml IV Total 2550 ml Output Estimated Blood Loss 25 ml # Voids 2 General: Alert, Oriented X3, Cooperative Abdomen: Soft, Other (ND, lap dressings dry) Labs Laboratory Tests Test 12/15/19 18:09 12/17/19 04:33 Coronavirus (PCR) Not detected (Not Detected) SARS-CoV-2 Antigen (Rapid) Negative (NEGATIVE) White Blood Count 14.2 x10^3/uL (4.0-11.0) Red Blood Count 4.30 x10^6/uL (3.50-5.40) Hemoglobin 12.7 g/dL (12.0-15.5) Hematocrit 37.7 % (36.0-47.0) Mean Corpuscular Volume 88 fL (79-100) Mean Corpuscular Hemoglobin 30 pg (25-35) Mean Corpuscular Hemoglobin Concent 34 g/dL (31-37) Red Cell Distribution Width 13.8 % (11.5-14.5) Platelet Count 194 x10^3/uL (140-400) Neutrophils (%) (Auto) 90 % (31-73) Lymphocytes (%) (Auto) 7 % (24-48) Monocytes (%) (Auto) 3 % (0-9) Eosinophils (%) (Auto) 0 % (0-3) Basophils (%) (Auto) 0 % (0-3) Neutrophils # (Auto) 12.7 x10^3/uL (1.8-7.7) Lymphocytes # (Auto) 1.0 x10^3/uL (1.0-4.8) Monocytes # (Auto) 0.4 x10^3/uL (0.0-1.1) Eosinophils # (Auto) 0.0 x10^3/uL (0.0-0.7) Basophils # (Auto) 0.0 x10^3/uL (0.0-0.2) Segmented Neutrophils % 88 % (35-66) Band Neutrophils % 1 % (0-9) Lymphocytes % 8 % (24-48) Monocytes % 3 % (0-10) Platelet Estimate Adequate (ADEQUATE) Large Platelets Occ Sodium Level 141 mmol/L (136-145) Potassium Level 4.2 mmol/L (3.5-5.1) Chloride Level 108 mmol/L (98-107) Carbon Dioxide Level 24 mmol/L (21-32) Anion Gap 9 (6-14) Blood Urea Nitrogen 6 mg/dL (7-20) Creatinine 0.8 mg/dL (0.6-1.0) Estimated GFR (Cockcroft-Gault) 78.3 BUN/Creatinine Ratio 8 (6-20) Glucose Level 115 mg/dL (70-99) Calcium Level 8.6 mg/dL (8.5-10.1) Total Bilirubin 0.6 mg/dL (0.2-1.0) Aspartate Amino Transf (AST/SGOT) 107 U/L (15-37) Alanine Aminotransferase (ALT/SGPT) 152 U/L (14-59) Alkaline Phosphatase 99 U/L (46-116) Total Protein 6.3 g/dL (6.4-8.2) Albumin 3.1 g/dL (3.4-5.0) Albumin/Globulin Ratio 1.0 (1.0-1.7) Laboratory Tests Test 12/17/19 04:33 White Blood Count 14.2 x10^3/uL (4.0-11.0) Red Blood Count 4.30 x10^6/uL (3.50-5.40) Hemoglobin 12.7 g/dL (12.0-15.5) Hematocrit 37.7 % (36.0-47.0) Mean Corpuscular Volume 88 fL (79-100) Mean Corpuscular Hemoglobin 30 pg (25-35) Mean Corpuscular Hemoglobin Concent 34 g/dL (31-37) Red Cell Distribution Width 13.8 % (11.5-14.5) Platelet Count 194 x10^3/uL (140-400) Neutrophils (%) (Auto) 90 % (31-73) Lymphocytes (%) (Auto) 7 % (24-48) Monocytes (%) (Auto) 3 % (0-9) Eosinophils (%) (Auto) 0 % (0-3) Basophils (%) (Auto) 0 % (0-3) Neutrophils # (Auto) 12.7 x10^3/uL (1.8-7.7) Lymphocytes # (Auto) 1.0 x10^3/uL (1.0-4.8) Monocytes # (Auto) 0.4 x10^3/uL (0.0-1.1) Eosinophils # (Auto) 0.0 x10^3/uL (0.0-0.7) Basophils # (Auto) 0.0 x10^3/uL (0.0-0.2) Segmented Neutrophils % 88 % (35-66) Band Neutrophils % 1 % (0-9) Lymphocytes % 8 % (24-48) Monocytes % 3 % (0-10) Platelet Estimate Adequate (ADEQUATE) Large Platelets Occ Sodium Level 141 mmol/L (136-145) Potassium Level 4.2 mmol/L (3.5-5.1) Chloride Level 108 mmol/L (98-107) Carbon Dioxide Level 24 mmol/L (21-32) Anion Gap 9 (6-14) Blood Urea Nitrogen 6 mg/dL (7-20) Creatinine 0.8 mg/dL (0.6-1.0) Estimated GFR (Cockcroft-Gault) 78.3 BUN/Creatinine Ratio 8 (6-20) Glucose Level 115 mg/dL (70-99) Calcium Level 8.6 mg/dL (8.5-10.1) Total Bilirubin 0.6 mg/dL (0.2-1.0) Aspartate Amino Transf (AST/SGOT) 107 U/L (15-37) Alanine Aminotransferase (ALT/SGPT) 152 U/L (14-59) Alkaline Phosphatase 99 U/L (46-116) Total Protein 6.3 g/dL (6.4-8.2) Albumin 3.1 g/dL (3.4-5.0) Albumin/Globulin Ratio 1.0 (1.0-1.7) Problem List Problems Medical Problems: (1) Acute cholecystitis Status: Acute Assessment/Plan s/p aria ok to nm home FU 2 weeks Justicifation of Admission Dx: Justifications for Admission: Justification of Admission Dx: Yes VADIM PENA PERSONNEL COORDINATOR Dec 17, 2019 12:29
[2019-12-17] MEDS ORDERED: METOCLOPRAMIDE HCL 10 MG/2 ML VIAL. IVP ONE (12:30)
--- NOTE | 2019-12-17 13:40 | NUR ---
pt discharged home with sister. meds and follow up reviewed. pt given instructions on incision cleaning and care. pt stable upon dc.
--- NOTE | 2019-12-20 14:07 | PATHOLOGY ---
[facility] Accession Number: [id number] . 01 Material submitted: . gallbladder - GALLBLADDER . 01 Clinical history: . ACUTE CHOLECYSTITIS . 02 Diagnosis: Gallbladder, excision: - Chronic cholecystitis; negative for malignancy. - Cholelithiasis. . (MLK:mml; 12/19/2019) [facility] 12/20/2019 1315 Local . 02 Electronically signed: . Ramirez Enamorado MD, Pathologist NPI- [id number] . 01 Gross description: . The specimen is received in formalin labeled "Shook, Helen, gallbladder" and consists of an intact pink gallbladder measuring 8.4 x 3.4 x 2.8 cm. The margin is inked black. Opening reveals a lumen filled with tenacious green bile and multiple multifaceted ricci brown calculi measuring up to 1.4 cm. The mucosa is green-brown with fibrotic streaks and an average wall thickness of 0.1 cm. No masses are identified. Hand Stripper sections are submitted in A1. (SDY; 12/16/2019) SYU/SYU 12/16/2019 1729 Local . 02 Pathologist provided ICD-10: K80.10 . 02 CPT . 997996 Specimen Comment: A courtesy copy of this report has been sent to [phone], [phone] Specimen Comment: [id number] Specimen Comment: Report sent to / DR NAGEL Performed at: 01 [facility] [address], [place] [id number] MD Bear Jang MD Phone: [phone] Performed at: 02 [facility] [address] [place], [place] [id number] MD Ender Dawn MD Phone: [phone]
== END 2019-12-17 13:42 | disposition home or self-care (01) | DRG 419 ==
LOC: ER 08:38 → ED HOLD 16:35 → 5 NORTH 17:22
PROVIDERS: ADMIT Internal Medicine; ATTEND Internal Medicine
PROC: 0FT44ZZ Resection of Gallbladder, Percutaneous Endoscopic Approach (ICD-10-PCS; principal; 2019-12-16 11:15)
DX: K80.12 Calculus of gallbladder with acute and chronic cholecystitis without obstruction (principal); F41.0 Panic disorder [episodic paroxysmal anxiety]; K76.0 Fatty (change of) liver, not elsewhere classified; F41.9 Anxiety disorder, unspecified; K21.9 Gastro-esophageal reflux disease without esophagitis; Z20.828 Contact with and (suspected) exposure to other viral communicable diseases; N95.9 Unspecified menopausal and perimenopausal disorder; F17.210 Nicotine dependence, cigarettes, uncomplicated; Z82.49 Family history of ischemic heart disease and other diseases of the circulatory system; Z87.11 Personal history of peptic ulcer disease; Z88.0 Allergy status to penicillin; Z98.51 Tubal ligation status
CPT/HCPCS: 36415; 74177; 76700; 80048; 80053; 80076; 81025; 82550; 83690; 84484; 85007; 85025; 87426; 88304; 93005; 96361; 96365; 96367; A7015; J0690; J0744; J1100; J1170; J1885; J2250; J2405; J2543; J2704; J2710; J2765; J3010; J3490; J7030; J7120; Q9966; Q9967; 99285-25; G0378; U0003-CS

== ENCOUNTER 2020-08-23 23:01 | Emergency (ER) | payer SELFPAY ==
[~2020-08-23] VITALS: Ht 162.6 cm; Wt 70.5 kg
[~2020-08-23 23:01] MED LIST changes: +AMOX500C PO; -CLIN300C8 PO; +CLIN300C9 PO; +ESOM20CA PO; +OXYC1TAB15 PO; +PROM12.58 PO
[2020-08-23 23:46] VITALS: BP 138/94
== END 2020-08-24 00:18 | disposition left against medical advice (07) ==
LOC: ER 23:01
DX: M54.2 Cervicalgia (principal); R51.9 Headache, unspecified; M54.9 Dorsalgia, unspecified; G89.11 Acute pain due to trauma; Z53.21 Procedure and treatment not carried out due to patient leaving prior to being seen by health care provider; V49.59XA Passenger injured in collision with other motor vehicles in traffic accident, initial encounter; Y93.89 Activity, other specified; Y92.488 Other paved roadways as the place of occurrence of the external cause; Y99.8 Other external cause status

== ENCOUNTER 2021-05-09 21:28 | Emergency (ER) | payer SELFPAY ==
[~2021-05-09] VITALS: Ht 162.6 cm; Wt 74.2 kg
[~2021-05-09 21:28] MED LIST changes: +CLIN-94 PO; -CLIN300C9 PO; +CYCL10TA19 PO; -CYCL10TA2 PO; -DOXY100C2 PO; +DOXY100C3 PO
[2021-05-09 22:00] VITALS: BP 142/80
--- NOTE | 2021-05-09 22:26 | RAD ---
AP chest. HISTORY: Cough AP view was taken of the chest. Lungs are free of infiltrates. Heart is normal in size. There is no e ffusion. IMPRESSION: 1. No acute chest disease. Electronically signed by: Son Green MD (05/09/2021 10:24 PM) [facility]
[2021-05-09] MEDS ORDERED: ACETAMINOPHEN 500 MG TABLET PO ONE (22:30)
[2021-05-09] MEDS ORDERED: IBUPROFEN 400 MG TABLET. PO ONE (22:30)
[2021-05-09 22:35] LABS: INFLUENZA A PATIENT NEGATIVE (NEGATIVE); INFLUENZA B PATIENT NEGATIVE (NEGATIVE)
[2021-05-09] MEDS ORDERED: AZIT250T PO (22:44)
--- NOTE | 2021-05-09 22:44 | PHYS DOC ---
Past Medical History Past Medical History: Liver Disease, Ovarian Cyst, P.U.D. Additional Past Medical Histor: PT REPORTS LIVER IS ABNORMAL, "UNDETECTED CELLS IN UTERUS" Past Surgical History: Tubal ligation Additional Past Surgical Histo: D+C, FINGER SURGERY Smoking Status: Current Every Day Smoker Alcohol Use: Occasionally Drug Use: None General Adult EDM: Chief Complaint: FLU SYMPTOM HPI: HPI: Patient is a 45 year old female who presented to ER for evaluation fever and chill, sore throat, body ache and headache for 2 days ,patient also complained of earache. Patient denies any abdominal pain, no nausea vomiting . patient denies any chest pain, no trouble breathing. Review of Systems: Review of Systems: Constitutional: Positive for fever and chills Eyes: Denies change in visual acuity. [] HENT: Positive for nasal congestion and sore throat Respiratory: Positive for cough, no trouble with breathing Cardiovascular: Denies chest pain or edema. [] GI: Denies abdominal pain, nausea, vomiting, bloody stools or diarrhea. [] : Denies dysuria. [] Musculoskeletal: Positive for back pain and joint pain Integument: Denies rash. [] Neurologic: Denies headache, focal weakness or sensory changes. [] Endocrine: Denies polyuria or polydipsia. [] Lymphatic: Denies swollen glands. [] Psychiatric: Denies depression or anxiety. [] Heart Score: C/O Chest Pain: N/A Risk Factors: Risk Factors: DM, Current or recent (<one month) smoker, HTN, HLP, family history of CAD, obesity. Risk Scores: Score 0 - 3: 2.5% MACE over next 6 weeks - Discharge Home Score 4 - 6: 20.3% MACE over next 6 weeks - Admit for Clinical Observation Score 7 - 10: 72.7% MACE over next 6 weeks - Early Invasive Strategies Current Medications: Current Medications Medications (Trade) Dose Ordered Sig/Shon Start Time Stop Time Status Last Admin Dose Admin Acetaminophen (Tylenol) 1,000 mg 1X ONCE 05/09/21 22:30 05/09/21 22:31 DC Ibuprofen (Motrin) 800 mg 1X ONCE 05/09/21 22:30 05/09/21 22:31 DC Allergies: Allergies: Allergies Coded Allergies Type Severity Reaction Last Updated Verified Penicillins Allergy Severe hives 8/20/20 Yes Physical Exam: PE: Constitutional: Well developed, well nourished, no acute distress, non-toxic appearance. [] HENT: Normocephalic, atraumatic, right tympanic membrane is inflamed, bulging, oropharynx moist, no oral exudates, nose normal. [] Eyes: PERRLA, EOMI, conjunctiva normal, no discharge. [] Neck: Normal range of motion, no tenderness, supple, no stridor. [] Cardiovascular:Heart rate regular rhythm, no murmur [] Lungs & Thorax: Bilateral breath sounds clear to auscultation [] Abdomen: Bowel sounds normal, soft, no tenderness, no masses, no pulsatile masses. [] Skin: Warm, dry, no erythema, no rash. [] Back: No tenderness, no CVA tenderness. [] Extremities: No tenderness, no cyanosis, no clubbing, ROM intact, no edema. [] Neurologic: Alert and oriented X 3, normal motor function, normal sensory function, no focal deficits noted. [] Psychologic: Affect normal, judgement normal, mood normal. [] Current Patient Data: Labs: Laboratory Tests Test 05/09/21 22:12 Influenza Type A Antigen Negative (NEGATIVE) Influenza Type B Antigen Negative (NEGATIVE) SARS-CoV-2 Antigen (Rapid) Positive (NEGATIVE) *A Vital Signs: Vital Signs Date Time Temp Pulse Resp B/P (MAP) Pulse Ox O2 Delivery O2 Flow Rate FiO2 05/09/21 22:00 99.6 100 20 142/80 (100) 100 Room Air 99.6 EKG: EKG: [] Radiology/Procedures: Radiology/Procedures: [][facility] [address] [place], [place] [id number] IMAGING REPORT Signed PATIENT: DANY HOOVER ACCOUNT: [id number] : 1975 LOCATION: ER AGE: 45 SEX: F EXAM STATUS: REG ER ORD. PHYSICIAN: DYAN GILL DO REASON: COUGH PROCEDURE: CHEST AP ONLY AP chest. HISTORY: Cough AP view was taken of the chest. Lungs are free of infiltrates. Heart is normal in size. There is no effusion. IMPRESSION: 1. No acute chest disease. Electronically signed by: Son Parr MD (05/09/2021 10:24 PM) [facility] DICTATED and SIGNED BY: SON PARR MD DATE: 05/09/21 [id number] 0 Course & Med Decision Making: Course & Med Decision Making Pertinent Labs and Imaging studies reviewed. (See chart for details) Patient is a 45-year-old female who presented to ER due to flulike symptoms. Patient was tested positive for COVID-19, negative for influenza. Patient was not vaccinated for COVID-19. Patient also had otitis media on the right side. Patient be discharged home with a Z-Alex to treat her otitis media. Patient was recommended to take ibuprofen or Tylenol as needed for pain Dragon Disclaimer: Dragon Disclaimer: This electronic medical record was generated, in whole or in part, using a voice recognition dictation system. Departure Departure Impression: Primary Impression: COVID-19 virus infection Additional Impression: Otitis media, left Disposition: 01 HOME / SELF CARE / HOMELESS Condition: STABLE Referrals: NO PCP (PCP) Please follow up with [facility] this week. [address], [address] [place] [address] Phone number: [phone] Patient Instructions: Otitis Media, Adult, Viral Syndrome Additional Instructions: If You Test Positive for COVID-19 (Isolate) Everyone, regardless of vaccination status. Stay home for 5 days. If you have no symptoms or your symptoms are resolving after 5 days, you can leave your house. Continue to wear a mask around others for 5 additional days. If you have a fever, continue to stay home until your fever resolves. If You Were Exposed to Someone with COVID-19 (Quarantine) If you: Have been boosted OR Completed the primary series of Pfizer or Moderna vaccine within the last 6 months OR Completed the primary series of J&J vaccine within the last 2 months Wear a mask around others for 10 days. Test on day 5, if possible. If you develop symptoms get a test and stay home. If you: Completed the primary series of Pfizer or Moderna vaccine over 6 months ago and are not boosted OR Completed the primary series of J&J over 2 months ago and are not boosted OR Are unvaccinated Stay home for 5 days. After that continue to wear a mask around others for 5 additional days. If you cant quarantine you must wear a mask for 10 days. Test on day 5 if possible. If you develop symptoms get a test and stay home Scripts Azithromycin (ZITHROMAX) 250 Mg Tablet 1 PKG PO UD, #6 TAB Prov: DYAN GILL DO 05/09/21 DYAN GILL DO May 09, 2021 22:44
== END 2021-05-09 22:53 | disposition home or self-care (01) ==
LOC: ER 21:28
DX: U07.1 COVID-19 (principal); F17.200 Nicotine dependence, unspecified, uncomplicated; Z88.0 Allergy status to penicillin
CPT/HCPCS: 71045; 87428; 99284